=== PATIENT | female | born 2000 | race Hispanic/Latino ===

== ENCOUNTER 2025-02-19 09:42 | Emergency (ER) | payer SELFPAY ==
--- OUTSIDE RECORDS SUMMARY | 2025-02-19 09:46 | XMS REPORT | Continuity of Care Document ---
Author Name Unknown Address [address] [facility] [address] [place] [address] [facility] Address [address] [facility] [address] [place] [address] Care Team Providers Care Rivet Passer Name Role Phone Dakota Lewis Primary Care Physician MARCIAL LOZANO Attending Clinician Unavailab homa VAZQUEZ Attending Clinician Unavailable G_Papbernardo Attending Clinician Unavailable SONNY LEIJA Attending Clinician Unavailabl mirian Navarro Attending Clinician Unavailable JUDITH CANALES Attending Clinician Unavaila RAJWINDER Beal Attending Clinician Unavailable BRUNILDA HUGGINS Attending Clinician Unavailable SHAHRIAR EVANS Attending Clinician Unav YAN mas BA Attending Clinician Unavailable TAYLOR Admitting Clinician Unavailable G_Pappamason Admitting Clinician Unavailable SONNY LEIJA Admitting Clinician Unavailabl e Melanie Admitting Clinician Unavailable Payers Payer Name Policy Type Policy Number Effective Date Expirati on Date Source [facility] (MEDICAID REPLACEMENT - HMO) [id number] 2019 00:00:00 [place] [facility] [id number] Problems Condition Name Condition Details Condition Category Status Onset Date Resolution Date Last Treatment Date Treating Clinician Comments Source Small for gestationa l age fetus Small for Gestationa l Age Fetus Problem Active [facility] History of ectopic History of Ectopic Problem Active [facility] Carrier of alpha thalassemi a Carrier of Alpha Thalassemi a Problem Active [facility] Social History Smoking Status Start Date Stop Date Source Never Smoker [facility] Medications Ordered Medication Name Filled Medication Name Start Date Stop Date Current Medication? Ordering Clinician Indication Dosage Frequency Signature (SIG) Comments Components Source Ferate 240 mg (27 mg iron) tablet TAKE 1 TABLET EVERY DAY BY ORAL ROUTE. Ferate 240 mg (27 mg iron) tablet TAKE 1 TABLET EVERY DAY BY ORAL ROUTE. No Ferate 240 mg (27 mg iron) tablet TAKE 1 TABLET EVERY DAY BY ORAL ROUTE. [facility] Vitafol-One 29 mg iron-1 mg-200 mg capsule TAKE 1 CAPSULE EVERY DAY BY ORAL ROUTE AT BEDTIME. Vitafol-One 29 mg iron-1 mg-200 mg capsule TAKE 1 CAPSULE EVERY DAY BY ORAL ROUTE AT BEDTIME. No Vitafol-On e 29 mg iron-1 mg-200 mg capsule TAKE 1 CAPSULE EVERY DAY BY ORAL ROUTE AT BEDTIME. [facility] amoxicillin 500 mg capsule TAKE ONE (1) CAPSULE(S) BY MOUTH TWICE A DAY FOR INFECTION. amoxicillin 500 mg capsule TAKE ONE (1) CAPSULE(S) BY MOUTH TWICE A DAY FOR INFECTION. No amoxicilli n 500 mg capsule TAKE ONE (1) CAPSULE(S) BY MOUTH TWICE A DAY FOR INFECTION. [facility] 11/28 (28) 1 mg-20 mcg (21)/75 mg (7) tablet Take 1 tablet every day by oral route. 11/28 (28) 1 mg-20 mcg (21)/75 mg (7) tablet Take 1 tablet every day by oral route. No 1 Q1D FE 11/28 (28) 1 mg-20 mcg (21)/75 mg (7) tablet Take 1 tablet every day by oral route. [facility] amoxicillin 500 mg capsule TAKE ONE (1) CAPSULE(S) BY MOUTH TWICE A DAY FOR INFECTION. amoxicillin 500 mg capsule TAKE ONE (1) CAPSULE(S) BY MOUTH TWICE A DAY FOR INFECTION. No amoxicilli n 500 mg capsule TAKE ONE (1) CAPSULE(S) BY MOUTH TWICE A DAY FOR INFECTION. [facility] amoxicillin 875 mg-potassiu m clavulanate 125 mg tablet TAKE ONE (1) TABLET(S) BY MOUTH TWICE A DAY FOR PHARYNGITIS . amoxicillin 875 mg-potassiu m clavulanate 125 mg tablet TAKE ONE (1) TABLET(S) BY MOUTH TWICE A DAY FOR PHARYNGITIS . No amoxicilli n 875 mg-potassi um clavulanat e 125 mg tablet TAKE ONE (1) TABLET(S) BY MOUTH TWICE A DAY FOR PHARYNGITI S. [facility] Hitesh Fe 1/20 (28) 1 mg-20 mcg (21)/75 mg (7) tablet TAKE 1 TABLET EVERY DAY BY ORAL ROUTE. Hitesh Fe 1/20 (28) 1 mg-20 mcg (21)/75 mg (7) tablet TAKE 1 TABLET EVERY DAY BY ORAL ROUTE. No Hitesh Fe 1/20 (28) 1 mg-20 mcg (21)/75 mg (7) tablet TAKE 1 TABLET EVERY DAY BY ORAL ROUTE. [facility] loratadine 10 mg tablet TAKE ONE (1) TABLET(S) BY MOUTH EVERY MORNING FOR ALLERGY SYMPTOMS. loratadine 10 mg tablet TAKE ONE (1) TABLET(S) BY MOUTH EVERY MORNING FOR ALLERGY SYMPTOMS. No loratadine 10 mg tablet TAKE ONE (1) TABLET(S) BY MOUTH EVERY MORNING FOR ALLERGY SYMPTOMS. [facility] Nexplanon 68 mg subdermal implant Inject 1 implant by subcutaneou s route. Nexplanon 68 mg subdermal implant Inject 1 implant by subcutaneou s route. No 1implan t(s) Nexplanon 68 mg subdermal implant Inject 1 implant by subcutaneo us route. [facility] Vital Signs Vital Name Observation Time Observation Value Comments S ource BP Diastolic 2023-04-03 00:00:00 83 mm[Hg] [facility] Height 2023-04-03 00:00:00 64 [in_i] [facility] BMI (Body Mass Index) 2023-04-03 00:00:00 30.1 kg/m2 [facility] BP Systolic 2023-04-03 00:00:00 123 mm[Hg] [facility] Body Weight 2023-04-03 00:00:00 175.2 [lb_av] [facility] BP Diastolic 2023-01-13 00:00:00 84 mm[Hg] [facility] Height 2023-01-13 00:00:00 64 [in_i] [facility] BMI (Body Mass Index) 2023-01-13 00:00:00 31.9 kg/m2 [facility] BP Systolic 2023-01-13 00:00:00 128 mm[Hg] [facility] Body Weight 2023-01-13 00:00:00 185.8 [lb_av] [facility] BP Diastolic 2022-02-18 00:00:00 87 mm[Hg] [facility] Height 2022-02-18 00:00:00 64 [in_i] [facility] BMI (Body Mass Index) 2022-02-18 00:00:00 31 kg/m2 [facility] BP Systolic 2022-02-18 00:00:00 126 mm[Hg] [facility] Body Weight 2022-02-18 00:00:00 180.4 [lb_av] [facility] BP Diastolic 2022-02-13 00:00:00 89 mm[Hg] [facility] Height 2022-02-13 00:00:00 64 [in_i] [facility] BMI (Body Mass Index) 2022-02-13 00:00:00 30.3 kg/m2 [facility] BP Systolic 2022-02-13 00:00:00 134 mm[Hg] [facility] Body Weight 2022-02-13 00:00:00 176.7 [lb_av] [facility] BP Diastolic 2022-02-06 00:00:00 85 mm[Hg] [facility] Height 2022-02-06 00:00:00 64 [in_i] [facility] BMI (Body Mass Index) 2022-02-06 00:00:00 30.7 kg/m2 [facility] BP Systolic 2022-02-06 00:00:00 120 mm[Hg] [facility] Body Weight 2022-02-06 00:00:00 179 [lb_av] [facility] BP Diastolic 2022-01-29 00:00:00 91 mm[Hg] [facility] Height 2022-01-29 00:00:00 64 [in_i] [facility] BP Systolic 2022-01-29 00:00:00 123 mm[Hg] [facility] Body Weight 2022-01-29 00:00:00 175 [lb_av] [facility] BP Diastolic 2022-01-09 00:00:00 76 mm[Hg] [facility] Height 2022-01-09 00:00:00 64 [in_i] [facility] BMI (Body Mass Index) 2022-01-09 00:00:00 29.9 kg/m2 [facility] BP Systolic 2022-01-09 00:00:00 122 mm[Hg] [facility] Body Weight 2022-01-09 00:00:00 174.4 [lb_av] [facility] BP Diastolic 2021-11-21 00:00:00 73 mm[Hg] [facility] Height 2021-11-21 00:00:00 64 [in_i] [facility] BMI (Body Mass Index) 2021-11-21 00:00:00 29.7 kg/m2 [facility] BP Systolic 2021-11-21 00:00:00 123 mm[Hg] [facility] Body Weight 2021-11-21 00:00:00 173.1 [lb_av] [facility] BP Diastolic 2021-10-18 00:00:00 75 mm[Hg] [facility] Height 2021-10-18 00:00:00 64 [in_i] [facility] BMI (Body Mass Index) 2021-10-18 00:00:00 30 kg/m2 [facility] BP Systolic 2021-10-18 00:00:00 112 mm[Hg] [facility] Body Weight 2021-10-18 00:00:00 175 [lb_av] [facility] BP Diastolic 2021-09-19 00:00:00 80 mm[Hg] [facility] Height 2021-09-19 00:00:00 64 [in_i] [facility] BMI (Body Mass Index) 2021-09-19 00:00:00 29.5 kg/m2 [facility] BP Systolic 2021-09-19 00:00:00 123 mm[Hg] [facility] Body Weight 2021-09-19 00:00:00 171.8 [lb_av] [facility] BP Diastolic 2021-08-22 00:00:00 84 mm[Hg] [facility] Height 2021-08-22 00:00:00 64 [in_i] [facility] BMI (Body Mass Index) 2021-08-22 00:00:00 29.6 kg/m2 [facility] BP Systolic 2021-08-22 00:00:00 124 mm[Hg] [facility] Body Weight 2021-08-22 00:00:00 172.6 [lb_av] [facility] BMI (Body Mass Index) 2021-08-01 00:00:00 29.9 kg/m2 [facility] BP Systolic 2021-08-01 00:00:00 119 mm[Hg] [facility] Body Weight 2021-08-01 00:00:00 174.4 [lb_av] [facility] BP Diastolic 2021-08-01 00:00:00 79 mm[Hg] [facility] Height 2021-08-01 00:00:00 64 [in_i] [facility] Height 2020-10-29 00:00:00 64 [in_i] [facility] BMI (Body Mass Index) 2020-10-29 00:00:00 29.9 kg/m2 [facility] Body Weight 2020-10-29 00:00:00 2784 [oz_av] [facility] BP Diastolic 2020-04-17 00:00:00 74 mm[Hg] [facility] Height 2020-04-17 00:00:00 64 [in_i] [facility] BP Systolic 2020-04-17 00:00:00 121 mm[Hg] [facility] BP Diastolic 2020-03-21 00:00:00 85 mm[Hg] [facility] Height 2020-03-21 00:00:00 64 [in_i] [facility] BMI (Body Mass Index) 2020-03-21 00:00:00 29.9 kg/m2 [facility] BP Systolic 2020-03-21 00:00:00 122 mm[Hg] [facility] Body Weight 2020-03-21 00:00:00 174 [lb_av] [facility] BP Diastolic 2020-03-09 00:00:00 87 mm[Hg] [facility] Height 2020-03-09 00:00:00 64 [in_i] [facility] BMI (Body Mass Index) 2020-03-09 00:00:00 29.7 kg/m2 [facility] BP Systolic 2020-03-09 00:00:00 117 mm[Hg] [facility] Body Weight 2020-03-09 00:00:00 173 [lb_av] [facility] BP Diastolic 2020-01-19 00:00:00 74 mm[Hg] [facility] Height 2020-01-19 00:00:00 64 [in_i] [facility] BMI (Body Mass Index) 2020-01-19 00:00:00 29 kg/m2 [facility] BP Systolic 2020-01-19 00:00:00 110 mm[Hg] [facility] Body Weight 2020-01-19 00:00:00 169.1 [lb_av] [facility] BP Diastolic 2020-01-05 00:00:00 84 mm[Hg] [facility] Height 2020-01-05 00:00:00 64 [in_i] [facility] BMI (Body Mass Index) 2020-01-05 00:00:00 28.8 kg/m2 [facility] BP Systolic 2020-01-05 00:00:00 120 mm[Hg] [facility] Body Weight 2020-01-05 00:00:00 168 [lb_av] [facility] BP Diastolic 2019-12-08 00:00:00 62 mm[Hg] [facility] Height 2019-12-08 00:00:00 64 [in_i] [facility] BMI (Body Mass Index) 2019-12-08 00:00:00 28.7 kg/m2 [facility] BP Systolic 2019-12-08 00:00:00 108 mm[Hg] [facility] Body Weight 2019-12-08 00:00:00 167 [lb_av] [facility] BP Diastolic 2024-09-13 14:07:00 79 mm[Hg] [facility] Weight Measured 2024-09-13 14:07:00 180.80 pounds Bandar Reynolds Height Measured 2024-09-13 14:07:00 63.07 inches Bandar Reynolds Body Temperature 2024-09-13 14:07:00 97.80 degrees Bandar Reynolds Heart Rate 2024-09-13 14:07:00 76.00 /min Raven Reynolds Respiratory Rate 2024-09-13 14:07:00 18.00 /min Bandar Reynolds BP Systolic 2024-09-13 14:07:00 122 mm[Hg] Tony Reynolds Procedures Procedure Date / Time Performed Performing Clinician Source US(FBP)W/0 NON STRESS TEST 2022-02-18 00:00:00 [facility] non-stress test 2022-02-13 00:00:00 [facility], [facility], limited 2022-02-06 00:00:00 [facility] US, obstetric, limited 2022-01-09 00:00:00 [facility] ULTRASOUND REPEAT 2021-12-12 00:00:00 [facility] ULTRASOUND, UTERUS REAL TIME WITH IMAGE DOC, AND MATERNAL EVAL PLUS DETAILED ANATOMIC EXAMINATION, TRANSABDOMINAL APPROACH; SINGLE OR FIRST GESTATION 2021-09-19 00:00:00 [facility] US, obstetric, limited 2021-09-19 00:00:00 [facility] US, obstetric, limited 2021-08-22 00:00:00 [facility] US, obstetric, limited 2021-08-01 00:00:00 [facility] US, obstetric, limited 2020-03-09 00:00:00 [facility] ULTRASOUND REPEAT 2020-01-05 00:00:00 [facility] ULTRASOUND, UTERUS REAL TIME WITH IMAGE DOC, AND MATERNAL EVAL PLUS DETAILED ANATOMIC EXAMINATION, TRANSABDOMINAL APPROACH; SINGLE OR FIRST GESTATION 2019-12-08 00:00:00 [facility] Removal of Fallopian Tube 2018-04-29 00:00:00 [facility] Plan of Care Planned Activity Planned Date Details Comments Source Diagnostic Test Pending 2023-04-03 00:00:00 test, urine [code = test, urine] [facility] Instructions [facility] Encounters Start Date/Time End Date/Time Encounter Type Admission Type Attending [facility] Facility Care Department Encounter ID Source 2024-09-13 13:59:29 2024-09-13 13:59:29 Outpatient S[facility] [id number] Bandar Reynolds 2024-09-13 00:00:00 2024-09-13 00:00:00 Outpatient Visit [facility] [id number] Bandar Reynolds 2023-04-03 00:00:00 2023-04-03 00:00:00 LORE Byrne-BC: [address] [facility], [address], [place] [address] , Ph. [phone] [facility] [id number] [facility] 2023-03-26 10:09:00 2023-03-26 11:54:00 Emergency ER MARCIAL LOZANO [facility] [id number] [facility] 2023-01-13 00:00:00 2023-01-13 00:00:00 LORE Byrne-: [address], [address], [place] [address] , Ph. [phone] [facility] OBETHEL [id number] [facility] 2022-06-11 14:30:00 2022-06-11 16:26:00 Emergency ER MARCIAL LOZANO [facility] [id number] [facility] 2022-05-21 02:40:00 2022-05-21 02:40:00 Outpatient LISTER_MELI [facility] [id number] [facility] 2022-04-04 00:00:00 2022-04-04 00:00:00 Outpatient G_Pappas [facility] [id number] [facility] 2022-04-04 00:00:00 2022-04-04 00:00:00 Outpatient G_Pappas [facility] [id number] [facility] 2022-04-04 00:00:00 2022-04-04 00:00:00 Outpatient G_Pappas [facility] [id number] [facility] 2022-04-04 00:00:00 2022-04-04 00:00:00 Outpatient G_Pappas [facility] [id number] [facility] 2022-02-26 01:51:00 2022-02-26 01:51:00 Outpatient G_Pappas [facility] [id number] [facility] 2022-02-20 13:55:00 2022-02-21 16:20:00 Inpatient ER SONNY LEIJA [facility] [id number] [facility] 2022-02-18 00:00:00 2022-02-18 00:00:00 Sonny Leija MD: [address], [place] [address] , Ph. [phone] G_Pappas [facility] [id number] [facility] 2022-02-13 00:00:00 2022-02-13 00:00:00 Sonny Leija MD: [address], [place] [address] , Ph. [phone] G_Pappas [facility] [id number] [facility] 2022-02-06 00:00:00 2022-02-06 00:00:00 Sonny Leija MD: [address], [place] [address] , Ph. [phone] G_Pappas [facility] 0331 [facility] 2022-01-29 00:00:00 2022-01-29 00:00:00 [facility] [address] [facility] [address] [place] [address] , Ph. [phone] G_Pappas [facility] [id number] [facility] 2022-01-09 00:00:00 2022-01-09 00:00:00 CHERYLE ByrneBC: [address], [place] [address] , Ph. [phone] G_Pappas [facility] [id number] [facility] 2021-12-12 10:45:00 2021-12-12 10:45:00 Outpatient SONNY DAVILA [facility] [id number] [facility] 2021-12-12 00:00:00 2021-12-12 00:00:00 Sonny Leija MD: [address] [facility] [address], [place] [address] , Ph. [phone] G_Pappas [facility] [id number] [facility] 2021-11-21 00:00:00 2021-11-21 00:00:00 YUE Byrne: [address] [address] , Ph. [phone] G_Pappas [facility] [id number] [facility] 2021-10-18 10:48:00 2021-10-18 10:48:00 Outpatient SONNY DAVILA [facility] [id number] [facility] 2021-10-18 00:00:00 2021-10-18 00:00:00 Judith Canales MD: [address] [address] , Ph. [phone] G_Pappas [facility] [id number] [facility] 2021-09-19 00:00:00 2021-09-19 00:00:00 Sonny Leija MD: [address] [address] , Ph. [phone] G_Pappas [facility] [id number] 1111 [facility] 2021-08-22 00:00:00 2021-08-22 00:00:00 Sonny Leija MD: [address] [address] , Ph. [phone] G_Pappas [facility] [id number] [facility] 2021-08-01 16:32:00 2021-08-01 16:32:00 Outpatient SONNY DAVILA [facility] [id number] [facility] 2021-08-01 00:00:00 2021-08-01 00:00:00 Sonny Leija MD: [address] [place] [address] , Ph. [phone] G_Pappas [facility] 0923 [facility] 2020-11-13 10:39:00 2020-11-13 10:39:00 [facility]patient [id number] 2020-10-29 00:00:00 2020-10-29 00:00:00 Erin Navarro, MUSIC AUTOGRAPHER: [address] [facility] [address], [place] [address] , Ph. [facility] 1221 [facility] 2020-09-26 02:21:00 2020-09-26 02:21:00 Outpatient G_Pappas [facility] [id number] [facility] 2020-04-17 00:00:00 2020-04-17 00:00:00 Sonny Leija MD: [address] [facility] [address], [place] [address] , Ph. [phone] G_Pappas [facility] 0609 [facility] 2020-04-10 10:56:00 2020-04-10 10:56:00 Outpatient G_Pappas [facility] [id number] [facility] 2020-03-25 07:40:00 2020-03-27 07:35:00 Inpatient ER SONNY LEIJA [facility] [id number] [facility] 2020-03-27 04:25:00 2020-03-27 04:25:00 Outpatient G_Pappas [facility] [id number] [facility] 2020-03-21 13:37:00 2020-03-21 13:37:00 Outpatient JUDITH ROBBINS [facility] [id number] [facility] 2020-03-21 00:00:00 2020-03-21 00:00:00 Judith Canales MD: [address] [facility] [address] [place] [address] , Ph. [phone] G[facility]Pappas [facility] [id number] [facility] 2020-03-12 12:13:00 2020-03-12 12:13:00 Outpatient G_Pappas [facility] [id number] [facility] 2020-03-09 00:00:00 2020-03-09 00:00:00 Rajwinder Wolf, NP: [address] [facility] [address] [place] [address] , Ph. [phone] G_Pappas MM[facility] - OBGYN [id number] [facility] 2020-02-27 08:52:00 2020-02-27 08:52:00 Outpatient G_Pappas [facility] G [id number] [facility] 2020-02-24 00:00:00 2020-02-24 00:00:00 Rajwinder Wolf, NP: [address] [address] , Ph. [phone] MM[facility] - OBGYN [id number] [facility] 2020-02-13 11:22:00 2020-02-13 11:22:00 Outpatient G_Pappas [facility] G [id number] [facility] 2020-02-12 07:18:00 2020-02-12 07:18:00 Outpatient G_Pappas [facility] [id number] [facility] 2020-02-10 00:00:00 2020-02-10 00:00:00 Judith Canales MD: [address] [facility] [address] [place] [address] , Ph. [phone] MM[facility] - OBGYN [id number] [facility] 2020-02-03 09:47:00 2020-02-03 09:47:00 Outpatient G_Pappas [facility] [id number] [facility] 2020-02-02 10:58:00 2020-02-02 10:58:00 Outpatient G_Pappas [facility] [id number] [facility] 2020-01-24 13:09:00 2020-01-24 13:09:00 Outpatient JUDITH ROBBINS [facility] [id number] [facility] 2020-01-22 08:21:00 2020-01-22 08:21:00 Outpatient G_Pappas [facility] [id number] [facility] 2020-01-19 00:00:00 2020-01-19 00:00:00 Judith Canales MD: [address] [address] , Ph. [phone] [facility]appas [facility] [id number] [facility] 2020-01-12 12:32:00 2020-01-12 12:32:00 Outpatient RAJWINDER FLEMING [facility] [id number] [facility] 2020-01-09 05:44:00 2020-01-09 05:44:00 Outpatient G_Pappas [facility] [id number] [facility] 2020-01-08 09:38:00 2020-01-08 09:38:00 Outpatient G_Pappas [facility] [id number] [facility] 2020-01-05 00:00:00 2020-01-05 00:00:00 BIGG Pickering: [address] [address] , Ph. [phone] G_Pappas MM[facility] - OBGYN [id number] [facility] 2019-12-24 11:07:00 2019-12-24 11:07:00 Outpatient G_Pappas [facility] [id number] [facility] 2019-12-09 11:02:00 2019-12-09 11:02:00 Outpatient [facility] [id number] [facility] 2019-12-08 15:10:00 2019-12-08 15:10:00 Outpatient JUDITH ROBBINS [facility] [id number] [facility] 2019-12-08 00:00:00 2019-12-08 00:00:00 Judith Canales MD: [address] [address] , Ph. [phone] [facility] [id number] [facility] 2019-11-14 04:23:00 2019-11-14 04:23:00 Outpatient G_Pappas [facility] [id number] [facility] 2018-04-28 16:19:00 2018-04-28 16:19:00 Outpatient ER BALAJISONNY CONTRERAS [facility] [id number] [facility] 2017-04-18 00:53:00 2017-04-19 09:50:00 Inpatient ER BALAJISONNY CONTRERAS [facility] [id number] [facility] 2017-03-25 14:17:00 2017-03-25 14:17:00 Outpatient BRUNILDA HITCHCOCK [facility] [id number] [facility] 2017-01-29 08:42:00 2017-01-29 08:42:00 Outpatient JUDITH ROBBINS [facility] [id number] [facility] 2016-09-29 15:38:00 2016-09-29 15:38:00 Outpatient BRUNILDA HITCHCOCK [facility] [id number] [facility] 2006-03-13 08:37:00 2006-03-13 08:37:00 Outpatient SHAHRIAR COATES [facility] [id number] [facility] 2004-12-28 21:11:00 2004-12-29 02:08:00 Emergency ER YAN FRIAS [facility] [id number] [facility] Results Test Description Test Time Test Comments Results Result Co mments Source [facility] [id number] 13:49:50* Test Item Value Reference Range Interpretation Comme nts Test (test code = Test) negative [facility] GroupUrinalysis macro (dipstick) panel - [id number] 15:51:31* Test Item Value Reference Range Interpretation Comme nts Leukocytes (test code = Leukocytes) Small Nitrite (test code = Nitrite) negative Urobilinogen (test code = Urobilinogen) .2 Protein (test code = Protein) Negative pH (test code = pH) 6.5 Blood (test code = Blood) Negative Specific [place] (test code = Specific [place]) 1.030 Ketone (test code = Ketone) Trace Bilirubin (test code = Bilirubin) Negative Glucose (test code = Glucose) Negative Appearance (test code = Appearance) Clear Color (test code = Color) Yellow [facility] HospitalUrinalysis macro (dipstick) panel - [id number] 09:46:31* Test Item Value Reference Range Interpretation Comme nts Leukocytes (test code = Leukocytes) Small Nitrite (test code = Nitrite) negative Urobilinogen (test code = Urobilinogen) .2 Protein (test code = Protein) Negative pH (test code = pH) 7.0 Blood (test code = Blood) Negative Specific [place] (test code = Specific [place]) 1.025 Ketone (test code = Ketone) Negative Bilirubin (test code = Bilirubin) Negative Glucose (test code = Glucose) Negative Appearance (test code = Appearance) Clear Color (test code = Color) Yellow [facility] Groupculture, vaginal/rectal, streptococcus group [id number] 00:00:00* Test Item Value Reference Range Interpretation Comme nts group B strep (test code = g roup B strep) negative [facility] GroupUrinalysis macro (dipstick) panel - [id number] 10:29:24* Test Item Value Reference Range Interpretation Comme nts Leukocytes (test code = Leukocytes) Small Nitrite (test code = Nitrite) negative Urobilinogen (test code = Urobilinogen) .2 Protein (test code = Protein) Negative pH (test code = pH) 7.0 Blood (test code = Blood) Negative Specific [place] (test code = Specific [place]) 1.020 Ketone (test code = Ketone) Negative Bilirubin (test code = Bilirubin) Negative Glucose (test code = Glucose) Negative Appearance (test code = Appearance) Clear Color (test code = Color) Yellow [facility] HospitalUrinalysis macro (dipstick) panel - [id number] 09:51:42* Test Item Value Reference Range Interpretation Comme nts Leukocytes (test code = Leukocytes) Small Nitrite (test code = Nitrite) negative Urobilinogen (test code = Urobilinogen) .2 Protein (test code = Protein) Negative pH (test code = pH) 7.0 Blood (test code = Blood) Hemolyzed: Trace Specific [place] (test code = Specific [place]) 1.025 Ketone (test code = Ketone) Negative Bilirubin (test code = Bilirubin) Negative Glucose (test code = Glucose) Negative Appearance (test code = Appearance) Slightly Cloudy Color (test code = Color) Yellow [facility] HospitalGlucose [Mass/volume] in Serum or Plasma --1 hour post dose [id number] 11:42:00* Test Item Value Reference Range Interpretation Comme nts Results (test code = Results) 138 [facility] HospitalUrinalysis macro (dipstick) panel - [id number] 09:55:12* Test Item Value Reference Range Interpretation Comme nts Leukocytes (test code = Leukocytes) Small Nitrite (test code = Nitrite) negative Urobilinogen (test code = Urobilinogen) .2 Protein (test code = Protein) Negative pH (test code = pH) 7.0 Blood (test code = Blood) Negative Specific [place] (test code = Specific [place]) 1.020 Ketone (test code = Ketone) Negative Bilirubin (test code = Bilirubin) Negative Glucose (test code = Glucose) Negative Appearance (test code = Appearance) Clear Color (test code = Color) Yellow [facility] HospitalCBC W Auto Differential panel - [id number] 09:49:00 * Test Item Value Reference Range Interpretation Comme nts white blood count (test code = white blood count) 9.7 K/uL 4.0-11.5 red blood count (test code = red blood count) 4.02 M/uL 3.80-5.20 hemoglobin (test code = hemoglobin) 10.9 g/dL 10.5-15.7 hematocrit (test code = hematocrit) 35.5 % 34.0-50.0 MCV [Entitic volume] (test c ode = 75769-3) 88.3 fL 86.0-100.0 mean corpuscular hemoglobin (test code = mean corpuscular hemoglobin) 27.1 pg 26.2-33.4 mean corpuscular HGB conc (t est code = mean corpuscular HGB conc) 30.7 g/dL 30.0-34.0 red cell distribution width (test code = red cell distribution width) 13.8 % 12.0-15.5 platelet count (test code = platelet count) 223 K/uL 165-450 mean platelet volume (test c ode = mean platelet volume) 12.2 fL 9.4-12.6 Segmented neutrophils/100 leukocytes in Blood (test code = 59403-0) 74.5 % 44.4-80.1 Immature granulocytes [#/vol ume] in Blood (test code = 78221-3) 0.09 K/uL 0.00-0.03 H lymphocyte% (test code = lymphocyte%) 16.8 % 10.0-50.0 mono % (test code = mono %) 6.8 % 3.6-12.0 eos % (test code = eos %) 0.7 % 0.0-5.4 Basophils/100 leukocytes in Specimen (test code = 40832-0) 0.3 % 0.1-1.2 Band form neutrophils [#/vol ume] in Blood (test code = 02267-6) 7.20 K/uL 1.56-6.13 H Lymphocytes [#/volume] in Sp ecimen by Automated count (test code = 01649-7) 1.63 K/uL 1.18-3.74 mono # (test code = mono #) 0.66 K/uL 0.24-0.86 eos # (test code = eos #) 0.07 K/uL 0.04-0.36 basophil # (test code = baso tristan #) 0.03 K/uL 0.01-0.08 NRBC% (test code = NRBC%) 0 /100 WBC 0-0.2 NRBC# (test code = NRBC#) 0 K/uL [facility] HospitalBlood group antibody screen [Presence] in Serum or Plasma 2021-12-12 09:49:00* Test Item Value Reference Range Interpretation Comme nts Blood group antibody screen [Presence] in Serum or Plasma (test code = 890-4) negative [facility] HospitalDifferential panel, method unspecified - [id number] 00:00:00NeutrophilsBandLymphocyteAtypical LymphMonocyteEosinophilBasophilMetamyelocyteMyelocytePromyelocyteBlastsNucleated Red Blood CellAbs Neutrophil Count (Man)Abs Lymph Count (Man)Abs Monocyte Count (Man)Abs Eosinophil Count (Man)Abs Basophil Count (Man)Platelet EstimatePlatelet MorphologyPoikilocytosisAnisocytosisMacrocytosisTarget CellsToxic GranulationMataMayo Memorial Hospital GroupHIV 1+2 Ab [Presence] in Serum 2021-12-12 00:00:00HIV P24 AgHIV-1/2 AbMaP[facility]irie Ridge Health GroupReagin Ab [Presence] in Serum by [id number] 00:00:00* Test Item Value Reference Range Interpretation Comme nts Reagin Ab [Presence] in Seru m by RPR (test code = 01184-6) nonreactive nonreactive [facility] HospitalUrinalysis macro (dipstick) panel - [id number] 09:49:38* Test Item Value Reference Range Interpretation Comme nts Leukocytes (test code = Leukocytes) Moderate Nitrite (test code = Nitrite) negative Urobilinogen (test code = Urobilinogen) .2 Protein (test code = Protein) Trace pH (test code = pH) 7.0 Blood (test code = Blood) Negative Specific [place] (test code = Specific [place]) 1.020 Ketone (test code = Ketone) Negative Bilirubin (test code = Bilirubin) Negative Glucose (test code = Glucose) Negative Appearance (test code = Appearance) Clear Color (test code = Color) Yellow [facility] HospitalUrinalysis macro (dipstick) panel - [id number] 11:50:25* Test Item Value Reference Range Interpretation Comme nts Leukocytes (test code = Leukocytes) Small Nitrite (test code = Nitrite) negative Urobilinogen (test code = Urobilinogen) .2 Protein (test code = Protein) Negative pH (test code = pH) 7.0 Blood (test code = Blood) Hemolyzed: Trace Specific [place] (test code = Specific [place]) 1.025 Ketone (test code = Ketone) Negative Bilirubin (test code = Bilirubin) Negative Glucose (test code = Glucose) Negative Appearance (test code = Appearance) Clear Color (test code = Color) Yellow [facility] HospitalUrinalysis macro (dipstick) panel - [id number] 13:56:26* Test Item Value Reference Range Interpretation Comme nts Leukocytes (test code = Leukocytes) Trace Nitrite (test code = Nitrite) negative Urobilinogen (test code = Urobilinogen) .2 Protein (test code = Protein) Negative pH (test code = pH) 6.5 Blood (test code = Blood) Negative Specific [place] (test code = Specific [place]) 1.030 Ketone (test code = Ketone) Small Bilirubin (test code = Bilirubin) Negative Glucose (test code = Glucose) Negative Appearance (test code = Appearance) Slightly Cloudy Color (test code = Color) Yellow [facility] HospitalUrinalysis macro (dipstick) panel - [id number] 09:56:53* Test Item Value Reference Range Interpretation Comme nts Leukocytes (test code = Leukocytes) Small Nitrite (test code = Nitrite) negative Urobilinogen (test code = Urobilinogen) .2 Protein (test code = Protein) Negative pH (test code = pH) 7.0 Blood (test code = Blood) Negative Specific [place] (test code = Specific [place]) 1.025 Ketone (test code = Ketone) Negative Bilirubin (test code = Bilirubin) Negative Glucose (test code = Glucose) Negative Appearance (test code = Appearance) Slightly Cloudy Color (test code = Color) Yellow [facility] GroupChromosome 13+18+21+X+Y aneuploidy in Blood by Molecular genetics method [id number] 00:00:00* Test Item Value Reference Range Interpretation Comme nts report summary (test code = report summary) see notes report note (test code = report note) see notes trisomy 13 age-based risk text (test code = trisomy 13 age-based risk text) 1/7,826 (0.01%) trisomy 13 risk score text (test code = trisomy 13 risk score text) <1/10,000 (<0.01%) trisomy 13 result text (test code = trisomy 13 result text) low risk trisomy 18 age-based risk text (test code = trisomy 18 age-based risk text) 1/2,484 (0.04%) trisomy 18 risk score text (test code = trisomy 18 risk score text) <1/10,000 (<0.01%) trisomy 18 result text (test code = trisomy 18 result text) low risk trisomy 21 age-based risk text (test code = trisomy 21 age-based risk text) 1/1,068 (0.09%) trisomy 21 risk score text (test code = trisomy 21 risk score text) <1/10,000 (<0.01%) trisomy 21 result text (test code = trisomy 21 result text) low risk monosomy X age-based risk text (test code = monosomy X age-based risk text) 1/255 (0.39%) monosomy X risk score text (test code = monosomy X risk score text) <1/10,000 (<0.01%) monosomy X result text (test code = monosomy X result text) low risk triploidy result text (test code = triploidy result text) low risk gender of fetus (test code = gender of fetus) male fraction (test code = fraction) 6.2% footnotes (test code = footnotes) see notes [facility] GroupGenetic screen in Unspecified specimen by Molecular genetics method [id number] 00:00:00* Test Item Value Reference Range Interpretation Comme nts report summary (test code = report summary) positive A alpha-thalassemia (test code = alpha-thalassemia) positive A beta-hemoglobinopathies (nancy t code = beta-hemoglobinopathies) negative micheline disease (test code = micheline disease) negative cystic fibrosis (test code = cystic fibrosis) negative duchenne/sanchez muscular dys trophy (test code = duchenne/sanchez muscular dystrophy) negative familial dysautonomia (test code = familial dysautonomia) negative fragile X syndrome (test cod e = fragile X syndrome) negative galactosemia (test code = galactosemia) negative gaucher disease (test code = gaucher disease) negative medium chain acyl-coa dehydr ogenase deficiency (test code = medium chain acyl-coa dehydrogenase deficiency) negative polycystic kidney disease, autosomal recessive (test code = polycystic kidney disease, autosomal recessive) negative mfbor-wngjj-hodgh syndrome ( test code = mtxmk-dtqkq-vzxxo syndrome) negative spinal muscular atrophy (nancy t code = spinal muscular atrophy) negative tara-sachs disease (test code = tara-sachs disease) negative panel notes (test code = joy el notes) see notes report note (test code = rep ort note) see notes footnotes (test code = footnotes) see notes [facility] Grouppap, LB + reflex to HR HPV if [id number] 00:00:00* Test Item Value Reference Range Interpretation Comme nts TP reflex HPV ASCUS (test co de = TP reflex HPV ASCUS) normal [facility] GroupABO & Rh group [Type] in [id number] 03:38:00* Test Item Value Reference Range Interpretation Comme nts Rh [Type] in Blood (test cod e = 25708-4) 4+ ABO and Rh group panel - Blo od (test code = 10995-1) O positive [facility] GroupBlood group antibody screen [Presence] in Serum or Plasma 2021-08-01 03:38:00* Test Item Value Reference Range Interpretation Comme nts Blood group antibody screen [Presence] in Serum or Plasma (test code = 890-4) negative [facility] GroupHIV 1+2 Ab [Presence] in [id number] 03:38:00HIV P24 AgHIV-1/2 AbMatagoa [facility] GroupReagin Ab [Presence] in Serum by RPR 2021-08-01 03:38:00* Test Item Value Reference Range Interpretation Comme nts Reagin Ab [Presence] in Seru m by RPR (test code = 52755-0) nonreactive nonreactive [facility] GroupHepatitis B virus surface Ag [Presence] in Serum 2021-08-01 03:30:00* Test Item Value Reference Range Interpretation Comme nts .hepatitis B surface antigen (test code = .hepatitis B surface antigen) negative negative [facility] W Auto Differential panel - [id number] 03:24:00 * Test Item Value Reference Range Interpretation Comme nts white blood count (test code = white blood count) 10.4 K/uL 4.0-11.5 red blood count (test code = red blood count) 4.65 M/uL 3.80-5.20 hemoglobin (test code = hemoglobin) 12.6 g/dL 10.5-15.7 hematocrit (test code = hematocrit) 39.7 % 34.0-50.0 MCV [Entitic volume] (test c ode = 87583-5) 85.4 fL 86-100 L mean corpuscular hemoglobin (test code = mean corpuscular hemoglobin) 27.1 pg 26.2-33.4 mean corpuscular HGB conc (t est code = mean corpuscular HGB conc) 31.7 g/dL 30-34 red cell distribution width (test code = red cell distribution width) 14.6 % 12.0-15.5 platelet count (test code = platelet count) 254 K/uL 165-450 mean platelet volume (test c ode = mean platelet volume) 11.1 fL 9.4-12.6 Segmented neutrophils/100 leukocytes in Blood (test code = 99627-4) 74.1 % 44.4-80.1 Immature granulocytes [#/vol ume] in Blood (test code = 53623-3) 0.0 K/uL 0.0-0.03 lymphocyte% (test code = lymphocyte%) 17.7 % 10.0-50.0 mono % (test code = mono %) 6.8 % 3.6-12.0 eos % (test code = eos %) 0.8 % 0.0-5.4 Basophils/100 leukocytes in Unspecified specimen (test code = 27339-7) 0.2 % 0.1-1.2 Band form neutrophils [#/vol ume] in Blood (test code = 16222-6) 7.74 K/uL 1.56-6.13 H Lymphocytes [#/volume] in Unspecified specimen by Automated count (test code = 09246-1) 1.9 K/uL 1.18-3.74 mono # (test code = mono #) 0.71 K/uL 0.24-0.86 eos # (test code = eos #) 0.08 K/uL 0.04-0.36 basophil # (test code = baso tristan #) 0.02 K/uL 0.01-0.08 NRBC% (test code = NRBC%) 0 /100 WBC 0-0.2 NRBC# (test code = NRBC#) 0 K/uL [facility] GroupChlamydia trachomatis+Neisseria gonorrhoeae DNA [Presence] in Cervix by URBANO with probe [id number] 03:24:00* Test Item Value Reference Range Interpretation Comme nts Chlamydia sp Ag [Presence] i n Unspecified specimen (test code = 56543-3) CT not detected [id number] (test code = ces1154) NG not detected [facility] GroupBacteria identified in Urine by [id number] 03:24:00* Test Item Value Reference Range Interpretation Comme nts Bacteria identified in Urine by Culture (test code = 630-4) no growth after 2 days [facility] GroupSARS-CoV+SARS-CoV-2 (COVID-19) Ag [Presence] in Respiratory specimen by Rapid [id number] 15:56:00* Test Item Value Reference Range Interpretation Comme nts SARS-CoV - 2 (test code = SA RS-CoV - 2) positive [facility] HospitalUrinalysis macro (dipstick) panel - [id number] 10:40:36* Test Item Value Reference Range Interpretation Comme nts Leukocytes (test code = Leukocytes) Large Nitrite (test code = Nitrite) negative Urobilinogen (test code = Urobilinogen) 1 Protein (test code = Protein) Negative pH (test code = pH) 7.0 Blood (test code = Blood) Large Specific [place] (test code = Specific [place]) 1.025 Ketone (test code = Ketone) Negative Bilirubin (test code = Bilirubin) Negative Glucose (test code = Glucose) Negative Appearance (test code = Appearance) Clear Color (test code = Color) Yellow [facility] GroupSARS coronavirus 2 RNA [Presence] in Respiratory specimen by URBANO with probe [id number] 14:28:00* Test Item Value Reference Range Interpretation Comme nts covid-19 test (test code = c ovid-19 test) negative [facility] W Auto Differential panel - [id number] 06:20:00 * Test Item Value Reference Range Interpretation Comme nts white blood count (test code = white blood count) 16.1 K/uL 4.0-11.5 red blood count (test code = red blood count) 3.65 M/uL 3.80-5.20 L hemoglobin (test code = hemoglobin) 9.0 g/dL 10.5-15.7 L hematocrit (test code = hematocrit) 29.4 % 34.0-50.0 L MCV [Entitic volume] (test c ode = 54472-4) 80.5 fL 86-100 L mean corpuscular hemoglobin (test code = mean corpuscular hemoglobin) 24.7 pg 26.2-33.4 L mean corpuscular HGB conc (t est code = mean corpuscular HGB conc) 30.6 g/dL 30-34 red cell distribution width (test code = red cell distribution width) 15.9 % 12.0-15.5 H platelet count (test code = platelet count) 199 K/uL 165-450 Platelets reticulated/100 platelets in Blood by Automated count (test code = 87570-9) 11.8 % 0-8 H mean platelet volume (test c ode = mean platelet volume) 13.3 fL 9.4-12.6 H Segmented neutrophils/100 leukocytes in Blood (test code = 75998-2) 71.4 % 44.4-80.1 Immature granulocytes [#/vol ume] in Blood (test code = 33705-4) 0.2 K/uL 0.0-0.03 H lymphocyte% (test code = lymphocyte%) 17.3 % 10.0-50.0 mono % (test code = mono %) 9.6 % 3.6-12.0 eos % (test code = eos %) 0.2 % 0.0-5.4 Basophils/100 leukocytes in Unspecified specimen (test code = 99963-1) 0.2 % 0.1-1.2 Band form neutrophils [#/vol ume] in Blood (test code = 48873-8) 11.49 K/uL 1.56-6.13 H Lymphocytes [#/volume] in Unspecified specimen by Automated count (test code = 81243-8) 2.8 K/uL 1.18-3.74 mono # (test code = mono #) 1.54 K/uL 0.24-0.86 H eos # (test code = eos #) 0.04 K/uL 0.04-0.36 basophil # (test code = baso tristan #) 0.03 K/uL 0.01-0.08 NRBC% (test code = NRBC%) 0 /100 WBC 0-0.2 NRBC# (test code = NRBC#) 0 K/uL [facility] W Auto Differential panel - [id number] 05:56:00 * Test Item Value Reference Range Interpretation Comme nts white blood count (test code = white blood count) 11.8 K/uL 4.0-11.5 H red blood count (test code = red blood count) 3.82 M/uL 3.80-5.20 hemoglobin (test code = hemoglobin) 9.5 g/dL 10.5-15.7 L hematocrit (test code = hematocrit) 31.4 % 34.0-50.0 L MCV [Entitic volume] (test c ode = 93965-6) 82.2 fL 86-100 L mean corpuscular hemoglobin (test code = mean corpuscular hemoglobin) 24.9 pg 26.2-33.4 L mean corpuscular HGB conc (t est code = mean corpuscular HGB conc) 30.3 g/dL 30-34 red cell distribution width (test code = red cell distribution width) 16.5 % 12.0-15.5 H platelet count (test code = platelet count) 174 K/uL 165-450 mean platelet volume (test c ode = mean platelet volume) 12.9 fL 9.4-12.6 H Segmented neutrophils/100 leukocytes in Blood (test code = 51133-5) 65.0 % 44.4-80.1 Immature granulocytes [#/vol ume] in Blood (test code = 56703-2) 0.2 K/uL 0.0-0.03 H lymphocyte% (test code = lymphocyte%) 23.9 % 10.0-50.0 mono % (test code = mono %) 8.8 % 3.6-12.0 eos % (test code = eos %) 0.7 % 0.0-5.4 Basophils/100 leukocytes in Unspecified specimen (test code = 31562-6) 0.2 % 0.1-1.2 Band form neutrophils [#/vol ume] in Blood (test code = 39061-4) 7.71 K/uL 1.56-6.13 H Lymphocytes [#/volume] in Unspecified specimen by Automated count (test code = 51364-1) 2.8 K/uL 1.18-3.74 mono # (test code = mono #) 1.04 K/uL 0.24-0.86 H eos # (test code = eos #) 0.08 K/uL 0.04-0.36 basophil # (test code = baso tristan #) 0.02 K/uL 0.01-0.08 NRBC% (test code = NRBC%) 0 /100 WBC 0-0.2 NRBC# (test code = NRBC#) 0 K/uL [facility] GroupBlood type and Indirect antibody screen panel - Blood 2020-03-25 05:56:00* Test Item Value Reference Range Interpretation Comme nts Rh [Type] in Blood (test cod e = 06444-0) 4+ ABO and Rh group panel - Blo od (test code = 70015-4) O positive [facility] GroupReagin Ab [Presence] in Serum by [id number] 05:56:00* Test Item Value Reference Range Interpretation Comme nts Reagin Ab [Presence] in Seru m by RPR (test code = 15154-5) nonreactive nonreactive [facility] GroupHepatitis B virus surface Ag [Presence] in Serum 2020-03-25 05:56:00* Test Item Value Reference Range Interpretation Comme nts .hepatitis B surface antigen (test code = .hepatitis B surface antigen) negative negative [facility] CaopkQnvjz-0-Pgnnwxutshhwv.placental [Presence] in Vaginal [id number] 05:29:00* Test Item Value Reference Range Interpretation Comme nts Npqpv-7-Kawhgprhhsrgo.placen moris [Presence] in Vaginal fluid (test code = 28301-4) positive neg [facility] GroupChlamydia trachomatis+Neisseria gonorrhoeae DNA [Presence] in Unspecified specimen by URBANO with probe [id number] 00:00:00* Test Item Value Reference Range Interpretation Comme nts chlamydia trachomatis by candace l-time PCR (reflex to azithromycin resistance by pyrosequencing) (test code = chlamydia trachomatis by real-time PCR (reflex to azithromycin resistance by pyrosequencing)) negative neisseria gonorrhoeae by candace l-time PCR (reflex to antibiotic resistance by molecular analysis) (test code = neisseria gonorrhoeae by real-time PCR (reflex to antibiotic resistance by molecular analysis)) negative [facility] GroupStreptococcus agalactiae [Presence] in Unspecified specimen by Organism specific [id number] 00:00:00* Test Item Value Reference Range Interpretation Comme nts group B streptococcus (gbs) by real-time PCR (test code = group B streptococcus (gbs) by real-time PCR) positive A group B streptococcus (gbs) antibiotic resistance by PCR (test code = group B streptococcus (gbs) antibiotic resistance by PCR) positive A [facility] GroupUrinalysis macro (dipstick) panel - [id number] 11:05:08* Test Item Value Reference Range Interpretation Comme nts Leukocytes (test code = Leukocytes) Large Nitrite (test code = Nitrite) negative Urobilinogen (test code = Urobilinogen) .2 Protein (test code = Protein) Trace pH (test code = pH) 7.0 Blood (test code = Blood) Negative Specific [place] (test code = Specific [place]) 1.025 Ketone (test code = Ketone) Negative Bilirubin (test code = Bilirubin) Negative Glucose (test code = Glucose) Negative Appearance (test code = Appearance) Clear Color (test code = Color) Yellow [facility] GroupUrinalysis macro (dipstick) panel - [id number] 14:06:00* Test Item Value Reference Range Interpretation Comme nts Leukocytes (test code = Leukocytes) Small Nitrite (test code = Nitrite) negative Urobilinogen (test code = Urobilinogen) .2 Protein (test code = Protein) Negative pH (test code = pH) 7.5 Blood (test code = Blood) Negative Specific [place] (test code = Specific [place]) 1.020 Ketone (test code = Ketone) Negative Bilirubin (test code = Bilirubin) Negative Glucose (test code = Glucose) Negative Appearance (test code = Appearance) Clear Color (test code = Color) Yellow [facility] Hospitaldifferential panel, [id number] 11:50:00 NeutrophilsBandLymphocyteAtypical LymphMonocyteEosinophilBasophilMetamyelocyteMyelocyteBlastsNucleated Red Blood CellDifferential CommentPlatelet EstimatePlatelet MorphologyHypochromasiaPoikilocytosisAnisocytosisTarget CellsStomatocyteToxic GranulationBurr CellsRouleauToxic Vacuolationneutrophils-Pb gqi-Pzfojgaympdu-GUysfbjel xadepw-Thadxapwoj-RTswksududhnSpmsxdttfkqz comment-P [facility] HospitalCB W Auto Differential panel - [id number] 11:50:00 * Test Item Value Reference Range Interpretation Comme nts white blood count (test code = white blood count) 12.7 K/uL 4.0-11.5 H red blood count (test code = red blood count) 4.03 M/uL 3.80-5.20 hemoglobin (test code = hemoglobin) 10.8 g/dL 10.5-15.7 hematocrit (test code = hematocrit) 34.5 % 34.0-50.0 MCV [Entitic volume] (test c ode = 47064-7) 85.6 fL 86-100 L mean corpuscular hemoglobin (test code = mean corpuscular hemoglobin) 26.8 pg 26.2-33.4 mean corpuscular HGB conc (t est code = mean corpuscular HGB conc) 31.3 g/dL 30-34 red cell distribution width (test code = red cell distribution width) 14.9 % 12.0-15.5 platelet count (test code = platelet count) 224 K/uL 165-450 mean platelet volume (test c ode = mean platelet volume) 12.2 fL 9.4-12.6 Segmented neutrophils/100 leukocytes in Blood (test code = 63790-3) 74.7 % 44.4-80.1 Immature granulocytes [#/vol ume] in Blood (test code = 14389-1) 0.1 K/uL 0.0-0.03 H lymphocyte% (test code = lymphocyte%) 15.5 % 10.0-50.0 mono % (test code = mono %) 7.9 % 3.6-12.0 eos % (test code = eos %) 0.6 % 0.0-5.4 Basophils/100 leukocytes in Unspecified specimen (test code = 79716-7) 0.2 % 0.1-1.2 Band form neutrophils [#/vol ume] in Blood (test code = 40840-5) 9.51 K/uL 1.56-6.13 H Lymphocytes [#/volume] in Unspecified specimen by Automated count (test code = 13292-5) 2.0 K/uL 1.18-3.74 mono # (test code = mono #) 1.00 K/uL 0.24-0.86 H eos # (test code = eos #) 0.07 K/uL 0.04-0.36 basophil # (test code = baso tristan #) 0.02 K/uL 0.01-0.08 NRBC% (test code = NRBC%) 0 /100 WBC 0-0.2 NRBC# (test code = NRBC#) 0 K/uL [facility] GroupDifferential panel, method unspecified - [id number] 11:50:00NeutrophilsBandLymphocyteAtypical LymphMonocyteEosinophilBasophilMetamyelocyteMyelocyteBlastsNucleated Red Blood CellDifferential CommentPlatelet EstimatePlatelet MorphologyHypochromasiaPoikilocytosisAnisocytosisTarget CellsStomatocyteToxic GranulationBurr CellsRouleauToxic Vacuolationneutrophils-Pb pza-Cwbcfotuwvcq-FPkbebseu mtcvak-Xfvopisnwh-LKzciedlhewuDjjbilatszss comment-P [facility] GroupBlood group antibody screen [Presence] in Serum or Plasma 2020-01-12 11:50:00* Test Item Value Reference Range Interpretation Comme nts Blood group antibody screen [Presence] in Serum or Plasma (test code = 890-4) negative [facility] GroupHIV 1+2 Ab [Presence] in [id number] 11:50:00HIV P24 AgHIV-1/2 AbMaPascagoula HospitalReagin Ab [Presence] in Serum by RPR 2020-01-12 11:50:00RPR ConfirmationH. C. Watkins Memorial Hospitalpap, LB + CT/NG/TV + reflex HR [id number] 00:00:00* Test Item Value Reference Range Interpretation Comme nts chlamydia trachomatis by candace l-time PCR (reflex to azithromycin resistance by pyrosequencing) (test code = chlamydia trachomatis by real-time PCR (reflex to azithromycin resistance by pyrosequencing)) negative trichomonas vaginalis by candace l-time PCR (reflex to metronidazole resistance) (test code = trichomonas vaginalis by real-time PCR (reflex to metronidazole resistance)) negative neisseria gonorrhoeae by candace l-time PCR (reflex to antibiotic resistance by molecular analysis) (test code = neisseria gonorrhoeae by real-time PCR (reflex to antibiotic resistance by molecular analysis)) negative liquid Pap test with reflex to HPV type-detect 3.0 high risk if ASCUS (test code = liquid Pap test with reflex to HPV type-detect 3.0 high risk if ASCUS) negative [facility] W Auto Differential panel - [id number] 02:22:00 * Test Item Value Reference Range Interpretation Comme nts white blood count (test code = white blood count) 11.2 K/uL 4.0-11.5 red blood count (test code = red blood count) 4.11 M/uL 3.80-5.20 hemoglobin (test code = hemoglobin) 11.3 g/dL 10.5-15.7 hematocrit (test code = hematocrit) 35.2 % 34.0-50.0 Erythrocyte mean corpuscular volume [Entitic volume] (test code = 67375-9) 85.6 fL 86-100 L mean corpuscular hemoglobin (test code = mean corpuscular hemoglobin) 27.5 pg 26.2-33.4 mean corpuscular HGB conc (t est code = mean corpuscular HGB conc) 32.1 g/dL 30-34 red cell distribution width (test code = red cell distribution width) 14.3 % 12.0-15.5 platelet count (test code = platelet count) 219 K/uL 165-450 mean platelet volume (test c ode = mean platelet volume) 12.5 fL 9.4-12.6 Neutrophils.segmented/100 leukocytes in Blood (test code = 24799-6) 75.5 % 44.4-80.1 Granulocytes Immature [#/vol ume] in Blood (test code = 99716-7) 0.1 K/uL 0.0-0.03 H lymphocyte% (test code = lymphocyte%) 15.0 % 10.0-50.0 mono % (test code = mono %) 8.4 % 3.6-12.0 eos % (test code = eos %) 0.6 % 0.0-5.4 Basophils/100 leukocytes in Unspecified specimen (test code = 92624-0) 0.1 % 0.1-1.2 Neutrophils.band form [#/vol ume] in Blood (test code = 42467-9) 8.42 K/uL 1.56-6.13 H Lymphocytes [#/volume] in Unspecified specimen by Automated count (test code = 98492-7) 1.7 K/uL 1.18-3.74 mono # (test code = mono #) 0.94 K/uL 0.24-0.86 H eos # (test code = eos #) 0.07 K/uL 0.04-0.36 basophil # (test code = baso tristan #) 0.01 K/uL 0.01-0.08 NRBC% (test code = NRBC%) 0 /100 WBC 0-0.2 NRBC# (test code = NRBC#) 0 K/uL [facility] GroupHIV 1+2 Ab [Presence] in [id number] 02:22:00HIV P24 AgHIV-1/2 AbMatagoMerit Health NatchezHepatitis B virus surface Ag [Presence] in [id number] 02:22:00* Test Item Value Reference Range Interpretation Comme nts .hepatitis B surface antigen (test code = .hepatitis B surface antigen) negative negative [facility] HospitalBacteria identified in Urine by [id number] 02:22:00* Test Item Value Reference Range Interpretation Comme nts Bacteria identified in Urine by Culture (test code = 630-4) no growth after 2 days [facility] GroupReagin Ab [Presence] in Serum by [id number] 02:22:00* Test Item Value Reference Range Interpretation Comme nts Reagin Ab [Presence] in Seru m by RPR (test code = 11738-6) nonreactive nonreactive [facility] GroupABO & Rh group [Type] in [id number] 02:19:00* Test Item Value Reference Range Interpretation Comme nts Rh [Type] in Blood (test cod e = 62919-1) 4+ ABO and Rh group panel - Blo od (test code = 32109-8) O positive [facility] GroupBlood group antibody screen [Presence] in Serum or Plasma 2019-12-08 02:19:00* Test Item Value Reference Range Interpretation Comme nts Blood group antibody screen [Presence] in Serum or Plasma (test code = 890-4) negative [facility] Notes Date/Time Note Provider Source Bandar Reynolds [facility]
[2025-02-19] MEDS ORDERED: CODEINE 30MG/APAP 300MG TAB ONE ×2 (10:03→10:04)
[2025-02-19] MEDS ORDERED: BUPIVACAINE 0.5% PF 10 ML VIAL ONE (10:03)
[2025-02-19] MEDS ORDERED: LIDOCAINE 1% 20 ML MDV ONE (10:03)
[2025-02-19] MEDS ORDERED: TDAP (DIPHTH,PERTUSS(ACELL),TET VAC) 0.5 ML VIAL IMVAC ONE (10:04)
[2025-02-19] MEDS ORDERED: CEFAZOLIN SODIUM 2 GM/VIAL ONE (10:30)
[2025-02-19] MEDS ORDERED: NA CHLORIDE 0.9% 100 ML ONE (10:30)
[2025-02-19] MEDS ORDERED: NA CHLORIDE 0.9% 500 ML ONE ×2 (10:32→11:35)
--- NOTE | 2025-02-19 10:38 | ER ---
Nurse's Notes [facility] Name: Gudelia Ferguson Age: 24 yrs Sex: Female : 2000 Arrival Date: 02/19/2025 Time: 09:42 Bed 15 Private MD: Diagnosis: Nondisplaced fracture of proximal phalanx of left index finger, initial encounter for open fracture;Laceration without foreign body of left index finger without damage to nail, initial encounter Presentation: 02/19 09:53 Chief complaint: Patient states: Garage door rolled over left first finger. Care prior jl to arrival: None. Mechanism of Injury: Crush injury from garage door that had unknown weight. Extrication was not required. 09:53 Acuity: CYNTHIA 2 jl7 09:53 Method Of Arrival: Ambulatory [facility] 10:00 Trauma event details: Injury occurred in the [facility], Injury occurred: at [facility] home. Injury occurred: February 19, 2025. 10:00 Coronavirus screen: At this time, the client does not indicate any symptoms associated [facility] with coronavirus-19. Ebola Screen: No symptoms or risks identified at this time. Initial Sepsis Screen: Does the patient meet any 2 criteria? No. Patient's initial sepsis screen is negative. Does the patient have a suspected source of infection? No. Patient's initial sepsis screen is negative. Risk Assessment: Do you want to hurt yourself or someone else? Patient reports no desire to harm self or others. Onset of symptoms was February 19, 2025. Triage Assessment: 09:55 General: Appears in no apparent distress. uncomfortable, Behavior is calm, cooperative, jl7 appropriate for age. Pain: Complains of pain in left index finger and palmar aspect of proximal phalanx of left index finger Pain currently is 5 out of 10 on a pain scale. Injury Description: Crush injury sustained to left index finger is macerated was sustained less than 30 minutes ago. 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 - Infectious Disease History:: Denies. - Immunization history: Last tetanus immunization: unknown. - Social history:: Smoking status: Patient denies any tobacco usage or history of. Screenin:45 Abuse screen: Denies threats or abuse. Denies injuries from another. Tuberculosis jl7 screening: No symptoms or risk factors identified. 11:00 [facility] ED Fall Risk Assessment (Adult) History of falling in the last 3 months, jl7 including since admission No falls in past 3 months (0 pts) Confusion or Disorientation No (0 pts) Intoxicated or Sedated No (0 pts) Impaired Gait No (0 pts) Mobility Assist Device Used No (0 pt) Altered Elimination No (0 pt) Score/Fall Risk Level 0 - 2 = Low Risk Oriented to surroundings, Maintained a safe environment. Nutritional screening: No deficits noted. Primary Survey: : NO uncontrolled hemorrhage observed. A: The client is awake and alert. The airway is jl7 patent. Breathing/Chest: Spontaneous respiratory effort, equal unlabored respirations, breath sounds clear bilaterally, regular pattern, symmetrical chest rise and fall. Circulation: No external hemorrhage present. Regular and strong central pulse, skin warm/dry/normal color. Disability Client is alert. Exposure/Environment: There is no evidence of uncontrolled external bleeding. Obvious injury(ies) are noted at this time: crush injury to left first finger A warming method has been applied: pt does not want a warm blanket at this time. 10:30 Reassessment Alertness and Airway: Awake and alert. The airway is patent. Breathing: jl7 Spontaneous respiratory effort, equal unlabored respirations, breath sounds clear bilaterally, regular pattern with symmetrical chest rise and fall. Circulation: No external hemorrhage noted. Regular and strong central pulse, skin warm/dry/normal color. Disability: Alert. Secondary Survey: :55 Injury Description: Crush injury sustained to left index finger is macerated. jl7 Assessment: :55 General: See triage. jl7 11:00 Reassessment: Patient appears in no apparent distress at this time. Patient and/or jl7 family updated on plan of care and expected duration. Pain level reassessed. Patient is alert, oriented x 3, equal unlabored respirations, skin warm/dry/pink. Patient denies pain at this time. Vital Signs: 09:55 BP 142 / 95; Pulse 83; Resp 17; Temp 98.8; Pulse Ox 98% ; Weight 81.65 kg; Height 5 ft. jl7 3 in. ; Pain 5/10; 10:45 BP 136 / 88; Pulse 86; Resp 15; Pulse Ox 100% ; jl7 11:30 BP 135 / 75; Pulse 81; Resp 15; Pulse Ox 100% ; Pain 0/10; jl7 09:55 Body Mass Index 31.89 (81.65 kg, 160.02 cm) jl7 09:55 Pain Scale: Adult jl7 11:30 Pain Scale: Adult jl7 Fidel Coma Score: 09:55 Eye Response: spontaneous(4). Motor Response: obeys commands(6). Verbal Response: jl7 oriented(5). Total: 15. Trauma Score (Adult): 09:55 Eye Response: spontaneous(1); Verbal Response: oriented(1); Motor Response: obeys jl7 commands(2); Systolic BP: > 89 mm Hg(4); Respiratory Rate: 10 to 29 per min(4); [place] Score: 15; Trauma Score: 12 ED Course: 09:43 Patient arrived in ED. im 09:47 Sathya Benz, TOBY is Primary Nurse. jl7 09:47 Rodo Osorio PA is PHCP. cp 09:47 Rk uCrrie MD is Attending Physician. cp 09:55 Triage completed. jl7 09:55 Arm band placed on right wrist. jl7 10:28 XRAY Hand LEFT 3 View In Process Unspecified. EDMS 10:45 Patient has correct armband on for positive identification. jl7 10:45 Patient maintains SpO2 saturation greater than 95% on room air. Thermoregulation: pt jl7 does not want warm blanket at this time. 10:45 Inserted saline lock: 22 gauge in right antecubital area, using aseptic technique. jl7 Flushed with 10 mL NS. 10:[address] a transfer with Lane from the [facility]/. eb 11:00 connected the hand surgeon decision unit rn for [facility] with Rodo Banks for patient eb transfer consultation. 11:00 Provided Education on: use of call [place]. jl7 11:00 Assist provider with laceration repair on left index finger that was between 2.6 to 7.5 jl7 cm using sutures. Set up tray. Performed by Rodo BANKS Dressed with Kerlix, Patient tolerated well. Patient transferred, IV remains in place. intact, No redness/swelling at site. 11:01 administrative approval given by Lane Sanchez Rn/ patient has been accepted to [facility] ED/ Dr. Jeffrey Sommers has accepted the patient in transfer/ report to be called to [phone]. Administered Medications: 10:11 Drug: Boostrix Tdap IM 0.5 ml IM once; as a single dose Route: IM; Site: right deltoid; jl7 11:42 Follow up: Response: No adverse reaction jl7 10:11 Drug: Acetaminophen-Codeine PO (300 mg-30 mg) 2 tabs PO once; RASS on ADMIN: Combtv4, jl7 Very Agttd3, Agttd2, Rstlss1, AlertClm0, Drwsy-1, Lt Sdtn-2, Mod Sdtn-3, Dp Sdtn-4, UnArsble-5 Route: PO; 11:00 Follow up: Response: No adverse reaction; Pain is decreased; RASS: Alert and Calm (0) jl7 10:54 Drug: NS 0.9% IV 1000 ml IV at 1 bolus Per protocol; to be given as a bolus over 60 jl7 minutes Route: IV; Rate: 1 bolus; Site: right antecubital; 11:42 Follow up: IV Status: Infusion continued upon transfer jl7 10:54 Drug: ceFAZolin IVPB 2 grams IVPB once over 30 mins; (mix in 100 mL NS) Route: IVPB; jl7 Infused Over: 30 mins; Site: right antecubital; 11:30 Follow up: Response: No adverse reaction; IV Status: Completed infusion 7 11:43 Drug: Lidocaine Infiltration (1 %) 10 ml 5 ml Infiltration once; to bedside {Note: jl7 administered by ERP.} Volume: 5 ml; Route: Infiltration; :44 Follow up: Response: No adverse reaction 7 11:43 Drug: Bupivacaine Infiltration (0.5 %) 10 ml 10 ml Infiltration once {Note: jl7 administered by ERP.} Volume: 10 ml; Route: Infiltration; 11:43 Follow up: Response: No adverse reaction jl7 Medication: 11:00 Vaccine Information Statement (VIS) provided today. Questions and/or concerns jl7 addressed. VIS edition date: June 14, 2021. Outcome: 10:37 ER care complete, transfer ordered by MD. rivas 11:55 Transferred by ground EMS to [facility], Transfer form jl7 completed. 11:55 Condition: stable 11:55 Discharge instructions given to patient, family, Instructed on the need for transfer, Demonstrated understanding of instructions, 11:55 Patient left the ED. jl7 Signatures: Dispatcher [employer] EDMS Rodo Osorio PA PA cp Leal, Jahala, RN RN jl7 Irma Tucker Itzel im Corrections: (The following items were deleted from the chart) 11:54 09:55 Exposure/Environment: There is no evidence of uncontrolled external bleeding. jl7 Obvious injury(ies) are noted at this time: crush injury to left first finger A warming method has been applied: A warm blanket has been provided to the patient. jl7 11:54 10:45 Thermoregulation: warm blanket given to patient. jl7 jl7
--- NOTE | 2025-02-19 10:38 | EDPHYS ---
Physician Documentation [facility] Name: Gudelia Ferguson Age: 24 yrs Sex: Female : 2000 Arrival Date: 02/19/2025 Time: 09:42 Bed 15 Private MD: ED Physician Rk Currie HPI: 02/19 09:55 This 24 yrs old Female presents to ER via Ambulatory with complaints of Crush cp Injury To Hand. 09:55 The patient or guardian reports injury, pain. The complaints affect the left index cp finger. Context: crush injury from opening of garage door. Onset: The symptoms/episode began/occurred just prior to arrival. Associated signs and symptoms: The patient has no apparent associated signs or symptoms. 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 - Infectious Disease History:: Denies. - Immunization history: Last tetanus immunization: unknown. - Social history:: Smoking status: Patient denies any tobacco usage or history of. ROS: 10:00 MS/extremity: Positive for injury or acute deformity, pain, of the left index finger, cp Negative for decreased range of motion, numbness, 10:00 Constitutional: Negative for fever, cp 10:00 Neck: Negative for pain with movement, pain at rest, 10:00 Back: Negative for pain at rest, pain with movement, 10:00 Neuro: Negative for numbness, tingling, weakness, 10:00 All other systems are negative, Exam: 10:05 Constitutional: The patient appears in no acute distress, alert, awake, non-toxic, well cp developed, well nourished, uncomfortable, 10:05 Head/Face: Normocephalic, atraumatic. cp 10:05 Eyes: Periorbital structures: appear normal, Conjunctiva: normal, no exudate, no injection, Sclera: no appreciated abnormality, Lids and lashes: appear normal, bilaterally, 10:05 ENT: External ear(s): are unremarkable, Nose: is normal, Mouth: Lips: moist, Oral mucosa: moist, Posterior pharynx: Airway: no evidence of obstruction, patent, 10:05 Chest/axilla: Inspection: normal, 10:05 Cardiovascular: Rate: normal, Rhythm: regular, 10:05 Respiratory: the patient does not display signs of respiratory distress, Respirations: normal, no use of accessory muscles, no retractions, labored breathing, is not present, Breath sounds: are clear throughout, no decreased breath sounds, no stridor, no wheezing, 10:05 Abdomen/GI: Exam negative for discomfort, distension, guarding, Inspection: abdomen appears normal, 10:05 Back: pain, is absent, 10:05 Musculoskeletal/extremity: Extremities: grossly normal except: noted in the left index finger: laceration noted diamond side of proximal to middle phalanx, flexor tendon exposed and appears intact, mild bleeding, digit neurovascular intact, Vital Signs: 09:55 BP 142 / 95; Pulse 83; Resp 17; Temp 98.8; Pulse Ox 98% ; Weight 81.65 kg; Height 5 ft. jl7 3 in. ; Pain 5/10; 10:45 BP 136 / 88; Pulse 86; Resp 15; Pulse Ox 100% ; jl7 11:30 BP 135 / 75; Pulse 81; Resp 15; Pulse Ox 100% ; Pain 0/10; jl7 09:55 Body Mass Index 31.89 (81.65 kg, 160.02 cm) jl7 09:55 Pain Scale: Adult jl7 11:30 Pain Scale: Adult jl7 [place] Coma Score: 09:55 Eye Response: spontaneous(4). Motor Response: obeys commands(6). Verbal Response: jl7 oriented(5). Total: 15. Trauma Score (Adult): 09:55 Eye Response: spontaneous(1); Verbal Response: oriented(1); Motor Response: obeys jl7 commands(2); Systolic BP: > 89 mm Hg(4); Respiratory Rate: 10 to 29 per min(4); Fidel Score: 15; Trauma Score: 12 Laceration: 11:45 Wound Repair of 3.5cm ( 1.4in ) subcutaneous laceration to palmar aspect of left index cp finger. Irregularly shaped.. Distal neuro/vascular/tendon intact. Anesthesia: Digital block administered with 5 mls of Lido/Marcaine. Wound prep: Moderate cleansing by me, Wound irrigation by me. Skin closed with 3 4-0 Vicryl using loose closure. Dressed with 4x4's, Kerlix. Patient tolerated well. MDM: 09:48 Medical Screening Exam initiated 10:00 Differential diagnosis: dislocation, open fracture, closed fracture, contusion, tendon cp rupture. 10:35 Data reviewed: vital signs, nurses notes, radiologic studies, plain films, I have discussed the patient's presentation/case with the attending Emergency Department Physician; and as a result, I will transfer patient for hand surgery consultation. 10:35 I considered the following discharge prescriptions or medication management in the emergency department Medications were administered in the Emergency Department. See MAR. Independent interpretation of the following test(s) in the Emergency Department X-Ray: My interpretation is images of left hand show intraarticular fracture of proximal phalanx left index finger. Special discussion: I discussed in detail with the patient the higher chance of wound infection based on his presenting history. 02/19 09:54 Order name: Urinalysis W/Microscopic cp 02/19 09:54 Order name: Test, Urine cp 02/19 10:23 Order name: Basic Metabolic Panel cp 02/19 10:23 Order name: CBC with Diff cp 02/19 10:23 Order name: Test, Serum cp 02/19 10:23 Order name: PT-INR cp 02/19 10:23 Order name: Ptt, Activated cp 02/19 09:54 Order name: XRAY Hand LEFT 3 View cp 02/19 10:23 Order name: Labs collected and sent; Complete Time: 11:43 cp 02/19 10:23 Order name: NPO; Complete Time: 10:24 cp 02/19 11:00 Order name: Labs - recollect needed: recollect chemistries/ hemolyzed per Ty; Complete eb Time: 11:44 Administered Medications: 10:11 Drug: Boostrix Tdap IM 0.5 ml IM once; as a single dose Route: IM; Site: right deltoid; jl7 11:42 Follow up: Response: No adverse reaction jl7 10:11 Drug: Acetaminophen-Codeine PO (300 mg-30 mg) 2 tabs PO once; RASS on ADMIN: Combtv4, jl7 Very Agttd3, Agttd2, Rstlss1, AlertClm0, Drwsy-1, Lt Sdtn-2, Mod Sdtn-3, Dp Sdtn-4, UnArsble-5 Route: PO; 11:00 Follow up: Response: No adverse reaction; Pain is decreased; RASS: Alert and Calm (0) jl7 10:54 Drug: NS 0.9% IV 1000 ml IV at 1 bolus Per protocol; to be given as a bolus over 60 jl7 minutes Route: IV; Rate: 1 bolus; Site: right antecubital; 11:42 Follow up: IV Status: Infusion continued upon transfer jl7 10:54 Drug: ceFAZolin IVPB 2 grams IVPB once over 30 mins; (mix in 100 mL NS) Route: IVPB; jl7 Infused Over: 30 mins; Site: right antecubital; 11:30 Follow up: Response: No adverse reaction; IV Status: Completed infusion jl7 11:43 Drug: Lidocaine Infiltration (1 %) 10 ml 5 ml Infiltration once; to bedside {Note: jl7 administered by ERP.} Volume: 5 ml; Route: Infiltration; 11:44 Follow up: Response: No adverse reaction jl7 11:43 Drug: Bupivacaine Infiltration (0.5 %) 10 ml 10 ml Infiltration once {Note: jl7 administered by ERP.} Volume: 10 ml; Route: Infiltration; 11:43 Follow up: Response: No adverse reaction jl7 Disposition: 02/20 09:37 Chart complete. cp 10:53 Co-signature as Attending Physician, Rk Currie MD I reviewed the patient's care rn provided by the Advanced Practice Provider and agree with the diagnosis and treatment plan. Disposition Summary: 02/19/25 10:37 Transfer Ordered Notes: Reason: Higher level of care cp Condition: Stable cp Problem: new cp Symptoms: have improved cp Transfer Location: [facility](02/19/25 11:37) cp Accepting Physician: doctor(02/19/25 11:55) jl7 Diagnosis - Nondisplaced fracture of proximal phalanx of left index finger, initial encounter cp for open fracture - Laceration without foreign body of left index finger without damage to nail, cp initial encounter Forms: - Medication Reconciliation Form cp - SBAR form cp Signatures: Dispatcher [employer] Rk Russo MD MD rn Page, Corey, PA PA cp Leal, Jahala RN RN jl7 Irma Tucker Corrections: (The following items were deleted from the chart) 02/19 10:24 10:24 BASIC METABOLIC PANEL+C.LAB.BRZ ordered. EDMS EDMS 10:24 10:24 CBC+H.LAB.BRZ ordered. EDMS EDMS 10:24 10:24 TEST, SERUM+SC.LAB.BRZ ordered. EDMS EDMS 10:24 10:24 PROTIME (+INR)+COAG.LAB.BRZ ordered. EDMS EDMS 10:24 10:24 PTT, ACTIVATED+COAG.LAB.BRZ ordered. EDMS EDMS 11:37 10:37 doctor cp cp 11:37 10:37 Other Acute Care Facility cp cp 11:55 11:37 doctor cp jl7
[2025-02-19 10:53] LABS: Absolute Basophils 0.1 K/uL (0-0.5); Absolute Eosinophils 0.2 K/uL (0-0.5); Absolute Lymphocytes (CBC) 2.2 K/uL (0.7-4.9); Absolute Monocytes 0.7 K/uL (0.1-1.3); Absolute Neutrophil 6.1 K/uL (1.8-8.0); Basophils % 0.6 % (0-1.3); Eosinophils % 1.6 % (0-4.4); Hematocrit 36.3 % (36.0-45.0); Lymphocytes % 24.1 % (15.3-44.8); MCH 27.1 pg (27.0-35.0); MCV 82.2 fL (80-100); MPV 9.3 fL (7.6-11.3); Monocytes % 7.8 % (3.3-12.3); Neutrophils % 65.9 % (41.7-73.7); Platelets 252 thou/uL (152-406); RBC Red Blood Cell Count 4.42 M/uL (3.86-4.86); Red Cell Distribution Width 14.1 % (12.1-15.2)
[2025-02-19 11:07] LABS: PT Prothrombin Time 11.5 SECONDS (10-13.0); PTT, Activated Partial Thromb 32.4 SECONDS (27.2-37.4); Protime INR 1.01
--- NOTE | 2025-02-19 11:28 | RAD REPORT ---
EXAM: XR Hand Left 3 View HISTORY: crush injury Bed Name: 15 COMPARISON: None TECHNIQUE: 3 radiographic views of the RIGHT hand submitted. FINDINGS: Oblique undisplaced fracture of the head of the second digit proximal phalanx with intra-ar ticular extension best appreciated on the AP view. Joint alignment is maintained. Soft tissue swelling about the second digit with irregularity anteriorly, correlate for laceration. No significan t degenerative changes are present. IMPRESSION: Oblique nondisplaced fracture of the head of the second digit proximal phalanx with intra-articular e xtension.
[2025-02-19 11:41] LABS: Urine Bacteria None Seen /HPF (<20); Urine Bilirubin NEGATIVE (Negative); Urine Blood Negative (Negative); Urine Clarity Extremely Turbid (Clear); Urine Color Light-Yellow (Yellow); Urine Culture Reflex Order NOT NEEDED; Urine Glucose NEGATIVE (Negative); Urine Ketones NEGATIVE (Negative); Urine Micro Reflex YN NO BILL MICROSCOPIC; Urine Nitrite NEGATIVE (Negative); Urine Protein NEGATIVE (Negative); Urine RBC <5 /HPF (None Seen); Urine Urobilinogen Normal (Normal); Urine WBC <5 /HPF (<5); Urine WBC Clump Rare /HPF (None Seen); Urine Yeast (Budding) Trace /HPF (None Seen); Urine pH 6.5 (5.0-7.0)
[2025-02-19 11:53] LABS: Anion Gap 10.3 mEq/L (5.0-15.0); Potassium 3.3 mEq/L (3.5-5.1)
[2025-02-19 12:18] VITALS: TEMP 98.8
[2025-02-19 12:19] VITALS: O2SAT 100
[2025-02-19 12:21] VITALS: BP 135/75
== END 2025-02-19 11:55 | disposition short-term general hospital (02) ==
LOC: ER 09:42
DX: S62.641B Nondisplaced fracture of proximal phalanx of left index finger, initial encounter for open fracture (principal); W23.0XXA Caught, crushed, jammed, or pinched between moving objects, initial encounter
CPT/HCPCS: 12042; 36415; 80048; 81001; 81025; 84703; 85025; 85610; 85730; 90715; 96365; 96372; 99285; J2003; J7040

== ENCOUNTER 2025-02-19 21:08 | Emergency (ER) | payer SELFPAY ==
--- OUTSIDE RECORDS SUMMARY | 2025-02-19 21:12 | XMS REPORT | Continuity of Care Document ---
Author Name Unknown Address [address] [facility]. [address] [place] [address] [facility] Address 1200 [facility] [address] [place] [address] Care Team Providers Care Extruding Department Supervisor Name Role Phone Dakota Lewis Primary Care Physician [phone] MYRA BRODY Attending Clinician Unavailable MYRA BRODY Attending Clinician Unavailable Brice Ventura MD Attending Clinician +- [phone] Myra Brody MD Attending Clinician [phone] MARCIAL LOZANO Attending Clinician Unavailab homa VAZQUEZ Attending Clinician Unavailable G_Pappas Attending Clinician Unavailable SONNY LEIJA Attending Clinician Unavailashley Navarro Attending Clinician Unavailable JUDITH CANALES Attending Clinician UnavailRAJWINDER Gillette Attending Clinician Unavailable BRUNILDA HUGGINS Attending Clinician Unavailable SHAHRIAR EVANS Attending Clinician Unav ailable RODRIGUEZ, YAN Attending Clinician Unavailable TAYLOR Admitting Clinician Unavailable G_Pappas Admitting Clinician Unavailable BALAJI, SONNY A Admitting Clinician Unavailabl e Shield Admitting Clinician Unavailable Payers Payer Name Policy Type Policy Number Effective Date Expirati on Date Source [facility] (MEDICAID REPLACEMENT - HMO) [id number] 2019 00:00:00 [place] [facility] [id number] Problems Condition Name Condition Details Condition Category Status Onset Date Resolution Date Last Treatment Date Treating Clinician Comments Source Proximal phalanx fracture of finger Proximal phalanx fracture of finger Disease Active 02-19 00:00: 00 Katerine Shaver Small for gestationa l age fetus Small for Gestationa l Age Fetus Problem Active [facility] History of ectopic History of Ectopic Problem Active [facility] Carrier of alpha thalassemi a Carrier of Alpha Thalassemi a Problem Active [facility] Social History Social Habit Start Date Stop Date Quantity Comments Source [facility] Gender identity [facility] Fack[facility] Sexual orientation [facility] Tobacco use and exposure 2025-02-19 00:00:00 2025-02-19 00:00:00 Smokeless tobacco non-user [facility] History of Social function 2025-02-19 00:00:00 2025-02-19 00:00:00 [facility] Smoking Status Start Date Stop Date Source Never smoked tobacco Katerine Shaver Medications Ordered Medication Name Filled Medication Name Start Date Stop Date Current Medication? Ordering Clinician Indication Dosage Frequency Signature (SIG) Comments Components Source bacitracin ointment bacitracin ointment 02-19 19:10: 00 Yes [id number] 3D Topical, 3 times daily, First dose on 02/19/25 at 1910 Katerine Shaver bacitracin- polymixin B (Polysporin ) 500-51736 UNIT/GM ointment bacitracin- polymixin B (Polysporin ) 500-16293 UNIT/GM ointment 02-19 17:25: 00 02-19 17:30 :00 No Topical, Once, On 02/19/25 at 1725, For 1 dose Katerine Shaver bacitracin- polymixin B (Polysporin ) 500-99320 UNIT/GM ointment - Pyxis Override Pull bacitracin- polymixin B (Polysporin ) 500-28020 UNIT/GM ointment - Pyxis Override Pull 02-19 17:24: 05 02-19 17:30 :00 No Starting on 02/19/25 at 1724, For 1 dose, Created by cabinet override Katerine Shaver ketorolac (Toradol) injection 15 mg ketorolac (Toradol) injection 15 mg 02-19 15:05: 00 02-19 15:13 :00 No 15mg 15 mg, Intravenou s, Once, On 02/19/25 at 1505, For 1 dose Katerine Shaver amoxicillin -clavulanat e (Augmentin) 875-125 MG tablet amoxicillin -clavulanat e (Augmentin) 875-125 MG tablet 02-19 00:00: 00 02-26 23:59 :00 No 875mg Q12H Take 1 tablet by mouth in the morning and 1 tablet in the evening. Do all this for 7 days. Katerine Shaver ibuprofen 600 MG tablet ibuprofen 600 MG tablet 02-19 00:00: 00 02-26 23:59 :00 No 600mg Q6H Take 1 tablet by mouth every 6 hours if needed for mild pain (1-3) for up to 7 days. Katerine Shaver acetaminoph en-codeine (Tylenol w/ Codeine #3) 300-30 MG tablet acetaminoph en-codeine (Tylenol w/ Codeine #3) 300-30 MG tablet 02-19 00:00: 00 02-26 23:59 :00 No 1{tbl} Q6H Take 1 tablet by mouth every 6 hours if needed for severe pain (7-10) for up to 7 days. Katerine Shaver Ferate 240 mg (27 mg iron) tablet TAKE 1 TABLET EVERY DAY BY ORAL ROUTE. Ferate 240 mg (27 mg iron) tablet TAKE 1 TABLET EVERY DAY BY ORAL ROUTE. No Ferate 240 mg (27 mg iron) tablet TAKE 1 TABLET EVERY DAY BY ORAL ROUTE. [facility] Vitafol-One 29 mg iron-1 mg-200 mg capsule TAKE 1 CAPSULE EVERY DAY BY ORAL ROUTE AT BEDTIME. Vitafol-One 29 mg iron-1 mg-200 mg capsule TAKE 1 CAPSULE EVERY DAY BY ORAL ROUTE AT BEDTIME. No Vitafol-On e 29 mg iron-1 mg-200 mg capsule TAKE 1 CAPSULE EVERY DAY BY ORAL ROUTE AT BEDTIME. [facility] amoxicillin 500 mg capsule TAKE ONE (1) CAPSULE(S) BY MOUTH TWICE A DAY FOR INFECTION. amoxicillin 500 mg capsule TAKE ONE (1) CAPSULE(S) BY MOUTH TWICE A DAY FOR INFECTION. No amoxicilli n 500 mg capsule TAKE ONE (1) CAPSULE(S) BY MOUTH TWICE A DAY FOR INFECTION. [facility] Junel FE 11/28 (28) 1 mg-20 mcg (21)/75 mg (7) tablet Take 1 tablet every day by oral route. Junel FE 11/28 () 1 mg-20 mcg (21)/75 mg (7) tablet Take 1 tablet every day by oral route. No 1 Q1D Junel FE 11/28 (28) 1 mg-20 mcg (21)/75 mg (7) tablet Take 1 tablet every day by oral route. [facility] amoxicillin 500 mg capsule TAKE ONE (1) CAPSULE(S) BY MOUTH TWICE A DAY FOR INFECTION. amoxicillin 500 mg capsule TAKE ONE (1) CAPSULE(S) BY MOUTH TWICE A DAY FOR INFECTION. No amoxicilli n 500 mg capsule TAKE ONE (1) CAPSULE(S) BY MOUTH TWICE A DAY FOR INFECTION. [facility] Hitesh Fe 11/28 () 1 mg-20 mcg (21)/75 mg (7) tablet TAKE 1 TABLET EVERY DAY BY ORAL ROUTE. Hitesh Fe 11/28 () 1 mg-20 mcg (21)/75 mg (7) tablet TAKE 1 TABLET EVERY DAY BY ORAL ROUTE. No Hitesh Fe 11/28 () 1 mg-20 mcg (21)/75 mg (7) tablet TAKE 1 TABLET EVERY DAY BY ORAL ROUTE. [facility] loratadine 10 mg tablet TAKE ONE (1) TABLET(S) BY MOUTH EVERY MORNING FOR ALLERGY SYMPTOMS. loratadine 10 mg tablet TAKE ONE (1) TABLET(S) BY MOUTH EVERY MORNING FOR ALLERGY SYMPTOMS. No loratadine 10 mg tablet TAKE ONE (1) TABLET(S) BY MOUTH EVERY MORNING FOR ALLERGY SYMPTOMS. [facility] Nexplanon 68 mg subdermal implant Inject 1 implant by subcutaneou s route. Nexplanon 68 mg subdermal implant Inject 1 implant by subcutaneou s route. No 1implan t(s) Nexplanon 68 mg subdermal implant Inject 1 implant by subcutaneo us route. [facility] Vital Signs Vital Name Observation Time Observation Value Comments S ource Heart rate 2025-02-19 16:48:59 60 /min [facility] Epic Respiratory rate 2025-02-19 16:48:59 18 /min [facility] Oxygen saturation in Arterial blood by Pulse oximetry 2025-02-19 16:48:59 100 /min [facility] Body temperature 2025-02-19 16:48:53 37.11 [facility] Systolic blood pressure 2025-02-19 16:48:29 137 mm[Hg] [facility] Diastolic blood pressure 2025-02-19 16:48:29 78 mm[Hg] [facility] Body height 2025-02-19 12:39:00 160 cm [facility] Body weight 2025-02-19 12:39:00 81 kg [facility] BMI 2025-02-19 12:39:00 31.63 kg/m2 [facility] Heart rate 2025-02-19 16:48:59 60 /min [facility] Epic Respiratory rate 2025-02-19 16:48:59 18 /min [facility] Oxygen saturation in Arterial blood by Pulse oximetry 2025-02-19 16:48:59 100 /min [facility] Body temperature 2025-02-19 16:48:53 37.11 [facility] Systolic blood pressure 2025-02-19 16:48:29 137 mm[Hg] [facility] Diastolic blood pressure 2025-02-19 16:48:29 78 mm[Hg] [facility] Body height 2025-02-19 12:39:00 160 cm [facility] Body weight 2025-02-19 12:39:00 81 kg [facility] BMI 2025-02-19 12:39:00 31.63 kg/m2 [facility] BP Diastolic 2023-04-03 00:00:00 83 mm[Hg] [facility] Height 2023-04-03 00:00:00 64 [in_i] [facility] BMI (Body Mass Index) 2023-04-03 00:00:00 30.1 kg/m2 [facility] BP Systolic 2023-04-03 00:00:00 123 mm[Hg] [facility] Body Weight 2023-04-03 00:00:00 175.2 [lb_av] [facility] BP Diastolic 2023-01-13 00:00:00 84 mm[Hg] [facility] Height 2023-01-13 00:00:00 64 [in_i] [facility] BMI (Body Mass Index) 2023-01-13 00:00:00 31.9 kg/m2 [facility] BP Systolic 2023-01-13 00:00:00 128 mm[Hg] [facility] Body Weight 2023-01-13 00:00:00 185.8 [lb_av] [facility] BP Diastolic 2022-02-18 00:00:00 87 mm[Hg] [facility] Height 2022-02-18 00:00:00 64 [in_i] [facility] BMI (Body Mass Index) 2022-02-18 00:00:00 31 kg/m2 [facility] BP Systolic 2022-02-18 00:00:00 126 mm[Hg] [facility] Body Weight 2022-02-18 00:00:00 180.4 [lb_av] [facility] BP Diastolic 2022-02-13 00:00:00 89 mm[Hg] [facility] Height 2022-02-13 00:00:00 64 [in_i] [facility] BMI (Body Mass Index) 2022-02-13 00:00:00 30.3 kg/m2 [facility] BP Systolic 2022-02-13 00:00:00 134 mm[Hg] [facility] Body Weight 2022-02-13 00:00:00 176.7 [lb_av] [facility] BP Diastolic 2022-02-06 00:00:00 85 mm[Hg] [facility] Height 2022-02-06 00:00:00 64 [in_i] [facility] BMI (Body Mass Index) 2022-02-06 00:00:00 30.7 kg/m2 [facility] BP Systolic 2022-02-06 00:00:00 120 mm[Hg] [facility] Body Weight 2022-02-06 00:00:00 179 [lb_av] [facility] BP Diastolic 2022-01-29 00:00:00 91 mm[Hg] [facility] Height 2022-01-29 00:00:00 64 [in_i] [facility] BP Systolic 2022-01-29 00:00:00 123 mm[Hg] [facility] Body Weight 2022-01-29 00:00:00 175 [lb_av] [facility] BP Diastolic 2022-01-09 00:00:00 76 mm[Hg] [facility] Height 2022-01-09 00:00:00 64 [in_i] [facility] BMI (Body Mass Index) 2022-01-09 00:00:00 29.9 kg/m2 [facility] BP Systolic 2022-01-09 00:00:00 122 mm[Hg] [facility] Body Weight 2022-01-09 00:00:00 174.4 [lb_av] [facility] BP Diastolic 2021-11-21 00:00:00 73 mm[Hg] [facility] Height 2021-11-21 00:00:00 64 [in_i] [facility] BMI (Body Mass Index) 2021-11-21 00:00:00 29.7 kg/m2 [facility] BP Systolic 2021-11-21 00:00:00 123 mm[Hg] [facility] Body Weight 2021-11-21 00:00:00 173.1 [lb_av] [facility] BP Diastolic 2021-10-18 00:00:00 75 mm[Hg] [facility] Height 2021-10-18 00:00:00 64 [in_i] [facility] BMI (Body Mass Index) 2021-10-18 00:00:00 30 kg/m2 [facility] BP Systolic 2021-10-18 00:00:00 112 mm[Hg] [facility] Body Weight 2021-10-18 00:00:00 175 [lb_av] [facility] BP Diastolic 2021-09-19 00:00:00 80 mm[Hg] [facility] Height 2021-09-19 00:00:00 64 [in_i] [facility] BMI (Body Mass Index) 2021-09-19 00:00:00 29.5 kg/m2 [facility] BP Systolic 2021-09-19 00:00:00 123 mm[Hg] [facility] Body Weight 2021-09-19 00:00:00 171.8 [lb_av] [facility] BP Diastolic 2021-08-22 00:00:00 84 mm[Hg] [facility] Height 2021-08-22 00:00:00 64 [in_i] [facility] BMI (Body Mass Index) 2021-08-22 00:00:00 29.6 kg/m2 [facility] BP Systolic 2021-08-22 00:00:00 124 mm[Hg] [facility] Body Weight 2021-08-22 00:00:00 172.6 [lb_av] [facility] BMI (Body Mass Index) 2021-08-01 00:00:00 29.9 kg/m2 [facility] BP Systolic 2021-08-01 00:00:00 119 mm[Hg] [facility] Body Weight 2021-08-01 00:00:00 174.4 [lb_av] [facility] BP Diastolic 2021-08-01 00:00:00 79 mm[Hg] [facility] Height 2021-08-01 00:00:00 64 [in_i] [facility] Height 2020-10-29 00:00:00 64 [in_i] [facility] BMI (Body Mass Index) 2020-10-29 00:00:00 29.9 kg/m2 [facility] Body Weight 2020-10-29 00:00:00 2784 [oz_av] [facility] BP Diastolic 2020-04-17 00:00:00 74 mm[Hg] [facility] Height 2020-04-17 00:00:00 64 [in_i] [facility] BP Systolic 2020-04-17 00:00:00 121 mm[Hg] [facility] BP Diastolic 2020-03-21 00:00:00 85 mm[Hg] [facility] Height 2020-03-21 00:00:00 64 [in_i] [facility] BMI (Body Mass Index) 2020-03-21 00:00:00 29.9 kg/m2 [facility] BP Systolic 2020-03-21 00:00:00 122 mm[Hg] [facility] Body Weight 2020-03-21 00:00:00 174 [lb_av] [facility] BP Diastolic 2020-03-09 00:00:00 87 mm[Hg] [facility] Height 2020-03-09 00:00:00 64 [in_i] [facility] BMI (Body Mass Index) 2020-03-09 00:00:00 29.7 kg/m2 [facility] BP Systolic 2020-03-09 00:00:00 117 mm[Hg] [facility] Body Weight 2020-03-09 00:00:00 173 [lb_av] [facility] BP Diastolic 2020-01-19 00:00:00 74 mm[Hg] [facility] Height 2020-01-19 00:00:00 64 [in_i] [facility] BMI (Body Mass Index) 2020-01-19 00:00:00 29 kg/m2 [facility] BP Systolic 2020-01-19 00:00:00 110 mm[Hg] [facility] Body Weight 2020-01-19 00:00:00 169.1 [lb_av] [facility] BP Diastolic 2020-01-05 00:00:00 84 mm[Hg] [facility] Height 2020-01-05 00:00:00 64 [in_i] [facility] BMI (Body Mass Index) 2020-01-05 00:00:00 28.8 kg/m2 [facility] BP Systolic 2020-01-05 00:00:00 120 mm[Hg] [facility] Body Weight 2020-01-05 00:00:00 168 [lb_av] [facility] BP Diastolic 2019-12-08 00:00:00 62 mm[Hg] [facility] Height 2019-12-08 00:00:00 64 [in_i] [facility] BMI (Body Mass Index) 2019-12-08 00:00:00 28.7 kg/m2 [facility] BP Systolic 2019-12-08 00:00:00 108 mm[Hg] [facility] Body Weight 2019-12-08 00:00:00 167 [lb_av] [facility] Height Measured 2024-09-13 14:07:00 63.07 inches Bandar F Rodolfo Body Temperature 2024-09-13 14:07:00 97.80 degrees Bandar F Rodolfo Heart Rate 2024-09-13 14:07:00 76.00 /min Raven en F Rodolfo Respiratory Rate 2024-09-13 14:07:00 18.00 /min Bandar F Rodolfo BP Systolic 2024-09-13 14:07:00 122 mm[Hg] Step hen F Rodolfo BP Diastolic 2024-09-13 14:07:00 79 mm[Hg] Henok phen F Rodolfo Weight Measured 2024-09-13 14:07:00 180.80 pounds Bandar F Rodolfo Procedures Procedure Date / Time Performed Performing Clinician Source XR HAND 3+ VIEWS LEFT 2025-02-19 14:10[facility]ESS [facility] 2022-02-18 00:00:00 [facility] non-stress test 2022-02-13 00:00:00 [facility] US, obstetric, limited 2022-02-06 00:00:00 [facility] US, obstetric, limited 2022-01-09 00:00:00 [facility] ULTRASOUND REPEAT 2021-12-12 00:00:00 [facility] ULTRASOUND, UTERUS REAL TIME WITH IMAGE DOC, AND MATERNAL EVAL PLUS DETAILED ANATOMIC EXAMINATION, TRANSABDOMINAL APPROACH; SINGLE OR FIRST GESTATION 2021-09-19 00:00:00 [facility] US, obstetric, limited 2021-09-19 00:00:00 [facility] US, obstetric, limited 2021-08-22 00:00:00 [facility] US, obstetric, limited 2021-08-01 00:00:00 [facility] US, obstetric, limited 2020-03-09 00:00:00 [facility] ULTRASOUND REPEAT 2020-01-05 00:00:00 [facility] ULTRASOUND, UTERUS REAL TIME WITH IMAGE DOC, AND MATERNAL EVAL PLUS DETAILED ANATOMIC EXAMINATION, TRANSABDOMINAL APPROACH; SINGLE OR FIRST GESTATION 2019-12-08 00:00:00 [facility] Removal of Fallopian Tube 2018-04-29 00:00:00 [facility] Plan of Care Planned Activity Planned Date Details Comments Source Diagnostic Test Pending 2023-04-03 00:00:00 test, urine [code = test, urine] [facility] Instructions [facility] Encounters Start Date/Time End Date/Time Encounter Type Admission Type Attending Clinicians Care Facility Care Department Encounter ID Source 2025-02-19 12:41:00 2025-02-19 19:33:00 Emergency Emergency MYRA BRODY RYAN [facility] General Medicine [id number] [facility] 2025-02-19 12:41:00 2025-02-19 19:33:00 Emergency Brice Ventura Ryan Drey [facility] [id number] Katerine Shaver 2025-02-19 13:24:02 2025-02-19 13:24:02 Outpatient [facility] [id number] [facility] 2024-09-13 13:59:29 2024-09-13 13:59:29 Outpatient [facility] [id number] Bandar Reynolds 2024-09-13 00:00:00 2024-09-13 00:00:00 Outpatient Visit [id number] Bandar Reynolds 2023-04-03 00:00:00 2023-04-03 00:00:00 Priyanka Perez [facility]: [address], [address], [place] [address] , Ph. [phone] MMG [facility] [id number] [facility] 2023-03-26 10:09:00 2023-03-26 11:54:00 Emergency ER MARCIAL LOZANO [facility] [id number] [facility] 2023-01-13 00:00:00 2023-01-13 00:00:00 [facility] [address], [address], [place] [address] , Ph. [phone] G [facility] [id number] [facility] 2022-06-11 14:30:00 2022-06-11 16:26:00 Emergency ER MARCIAL LOZANO [facility] [id number] [facility] 2022-05-21 02:40:00 2022-05-21 02:40:00 Outpatient BHAVNA_MELI YADIRA [facility] [id number] [facility] 2022-04-04 00:00:00 2022-04-04 00:00:00 Outpatient G_Pappas [facility] [id number] [facility] 2022-04-04 00:00:00 2022-04-04 00:00:00 Outpatient G_Pappas [facility]G [id number] [facility] 2022-04-04 00:00:00 2022-04-04 00:00:00 Outpatient G_Pappas MM[facility] MMG [id number] [facility] 2022-04-04 00:00:00 2022-04-04 00:00:00 Outpatient G_Pappas MMG MMG [id number] [facility] 2022-02-26 01:51:00 2022-02-26 01:51:00 Outpatient G_Pappas MM[facility] MMG [id number] [facility] 2022-02-20 13:55:00 2022-02-21 16:20:00 Inpatient ER SONNY LEIJA [facility] [id number] [facility] 2022-02-18 00:00:00 2022-02-18 00:00:00 Sonny Leija MD: [address] [address] , Ph. [phone] G_Pappas [facility] [id number] 0412 [facility] 2022-02-13 00:00:00 2022-02-13 00:00:00 Sonny Leija MD: [address] [facility] [address] [facility] [address] [place] [address] , Ph. [phone] G_Pappas [facility] [id number] [facility] 2022-02-06 00:00:00 2022-02-06 00:00:00 Sonny Leija MD: [address] [facility] [address] [place] [address] , Ph. [phone] G_Pappas [facility] [id number] 0331 [facility] 2022-01-29 00:00:00 2022-01-29 00:00:00 CHERYLE ByrneP-BC: [address], [place] [address] , Ph. [phone] G_Pappas [facility] [id number] [facility] 2022-01-09 00:00:00 2022-01-09 00:00:00 Priyanka Perez [facility]: [address] [address] , Ph. [phone] [facility] [id number] 0303 [facility] 2021-12-12 10:45:00 2021-12-12 10:45:00 Outpatient SONNY DAVILA [facility] [id number] [facility] 2021-12-12 00:00:00 2021-12-12 00:00:00 Sonny Leija MD: [address] [address] , Ph. [phone] G_Pappas [facility] [id number] 0203 [facility] 2021-11-21 00:00:00 2021-11-21 00:00:00 CHERYLE ByrneBC: [address] [address] , Ph. [phone] G_Pappas G [facility] [id number] 0113 [facility] 2021-10-18 10:48:00 2021-10-18 10:48:00 Outpatient SONNY DAVILA [facility] [id number] [facility] 2021-10-18 00:00:00 2021-10-18 00:00:00 Judith Canales MD: [address], [place] [address] , Ph. [phone] G_Pappas [facility]10 [facility] 2021-09-19 00:00:00 2021-09-19 00:00:00 Sonny Leija MD: [address], [place] [address] , Ph. [phone] G_Pappas [facility] 1111 [facility] 2021-08-22 00:00:00 2021-08-22 00:00:00 Sonny Leija MD: [address], [place] [address] , Ph. [phone] G_Pappas [facility] 1014 [facility] 2021-08-01 16:32:00 2021-08-01 16:32:00 Outpatient SONNY DAVILA [facility] [id number] [facility] 2021-08-01 00:00:00 2021-08-01 00:00:00 Sonny Leija MD: [address], [place] [address] , Ph. [phone] G_Pappas [facility] 0923 [facility] 2020-11-13 10:39:00 2020-11-13 10:39:00 Outpatient Melanie [facility] [id number] [facility] 2020-10-29 00:00:00 2020-10-29 00:00:00 Erin Navarro NP: [address], [place] [address] , Ph. Melanie [facility] 1220 [facility] 2020-09-26 02:21:00 2020-09-26 02:21:00 Outpatient G[facility]appas [facility] [id number] 2020-04-17 00:00:00 2020-04-17 00:00:00 Sonny Leija MD: [address], [place] [address] , Ph. [phone] G_Pappas [facility] [place] [facility]609 [facility] 2020-04-10 10:56:00 2020-04-10 10:56:00 Outpatient G_Pappas MMG MMG [id number] [facility] 2020-03-25 07:40:00 2020-03-27 07:35:00 Inpatient ER SONNY LEIJA [facility] [id number] [facility] 2020-03-27 04:25:00 2020-03-27 04:25:00 Outpatient G_Pappas MMG MMG [id number] [facility] 2020-03-21 13:37:00 2020-03-21 13:37:00 Outpatient JUDITH ROBBINS [facility] [id number] [facility] 2020-03-21 00:00:00 2020-03-21 00:00:00 Judith Canales MD: [address], [place] [address] , Ph. [phone] G_Pappas [facility] [place] [facility]13 [facility] 2020-03-12 12:13:00 2020-03-12 12:13:00 Outpatient G_Pappas MMG MMG [id number] [facility] 2020-03-09 00:00:00 2020-03-09 00:00:00 Rajwinder Wolf [facility] HOSPITAL: [address], [place] [address] , Ph. [phone] G_Pappas [facility] [place] [id number] 0501 [facility] 2020-02-27 08:52:00 2020-02-27 08:52:00 Outpatient G_[facility]appas [facility] [id number] [id number] [facility] 2020-02-24 00:00:00 2020-02-24 00:00:00 BIGG [place]: [address], [place] [address] , Ph. [phone] [facility] [id number] 0417 [facility] 2020-02-13 11:22:00 2020-02-13 11:22:00 Outpatient G_Pappas [facility]G [id number] [facility] 2020-02-12 07:18:00 2020-02-12 07:18:00 Outpatient G_Pappas [facility] [id number] 0405 [facility] 2020-02-10 00:00:00 2020-02-10 00:00:00 Judith Canales MD: [address] [place] [address] , Ph. [phone] [facility] [id number] 0403 [facility] 2020-02-03 09:47:00 2020-02-03 09:47:00 Outpatient G_Pappas [facility]G [id number] [facility] 2020-02-02 10:58:00 2020-02-02 10:58:00 Outpatient G_Pappas [facility] [id number] 0326 [facility] 2020-01-24 13:09:00 2020-01-24 13:09:00 Outpatient JUDITH ROBBINS [facility] [id number] [facility] 2020-01-22 08:21:00 2020-01-22 08:21:00 Outpatient G_Pappas [facility]G [id number] 0315 [facility] 2020-01-19 00:00:00 2020-01-19 00:00:00 Judith Canales MD: [address], [place] [address] , Ph. [phone] G_Pappas MM[facility] [place] - OBGYN [id number] 0312 [facility] 2020-01-12 12:32:00 2020-01-12 12:32:00 Outpatient RAJWINDER FLEMING [facility] [id number] [facility] 2020-01-09 05:44:00 2020-01-09 05:44:00 Outpatient G_Pappas [facility]G MMG [id number] [facility] 2020-01-08 09:38:00 2020-01-08 09:38:00 Outpatient G_Pappas [facility]G MMG [id number] [facility] 2020-01-05 00:00:00 2020-01-05 00:00:00 BIGG [place]: [address], [place] [address] , Ph. [phone] G_Pappas [facility] [place] - OBGYN [id number] 0227 [facility] 2019-12-24 11:07:00 2019-12-24 11:07:00 Outpatient G_Pappas [facility] [id number] [id number] [facility] 2019-12-09 11:02:00 2019-12-09 11:02:00 Outpatient G_Pappas [facility]G [id number] 0131 [facility] 2019-12-08 15:10:00 2019-12-08 15:10:00 Outpatient JUDITH ROBBINS [facility] [id number] [facility] 2019-12-08 00:00:00 2019-12-08 00:00:00 Judith Canales MD: [address], [place] [address] , Ph. [phone] [facility]as [facility] [id number] 0130 [facility] 2019-11-14 04:23:00 2019-11-14 04:23:00 Outpatient G_Pappas [facility] [id number] [facility] 2018-04-28 16:19:00 2018-04-28 16:19:00 Outpatient ER SONNY LEIJA [facility] [id number] [facility] 2017-04-18 00:53:00 2017-04-19 09:50:00 Inpatient ER SONNY LEIJA [facility] [id number] [facility] 2017-03-25 14:17:00 2017-03-25 14:17:00 Outpatient BRUNILDA HITCHCOCK [facility] [id number] [facility] 2017-01-29 08:42:00 2017-01-29 08:42:00 Outpatient JUDITH ROBBINS [facility] [id number] [facility] 2016-09-29 15:38:00 2016-09-29 15:38:00 Outpatient BRUNILDA HITCHCOCK [facility] [id number] [facility] 2006-03-13 08:37:00 2006-03-13 08:37:00 Outpatient MARLYS COATESLeila [facility] [id number] [facility] 2004-12-28 21:11:00 2004-12-29 02:08:00 Emergency ER YAN FRIAS [facility] [id number] [facility] Results Test Description Test Time Test Comments Results Result Co mments Source [facility] [id number] 13:49:50* Test Item Value Reference Range Interpretation Comme nts Test (test code = Test) negative [facility]inal[facility] macro (dipstick) panel - [id number] 15:51:31* Test Item Value Reference Range Interpretation Comme nts Leukocytes (test code = Leukocytes) Small Nitrite (test code = Nitrite) negative Urobilinogen (test code = Urobilinogen) .2 Protein (test code = Protein) Negative pH (test code = pH) 6.5 Blood (test code = Blood) Negative Specific Tsaile (test code = Specific Tsaile) 1.030 Ketone (test code = Ketone) Trace Bilirubin (test code = Bilirubin) Negative Glucose (test code = Glucose) Negative Appearance (test code = Appearance) Clear Color (test code = Color) Yellow [facility] GroupUrinalysis macro (dipstick) panel - [id number] 09:46:31* Test Item Value Reference Range Interpretation Comme nts Leukocytes (test code = Leukocytes) Small Nitrite (test code = Nitrite) negative Urobilinogen (test code = Urobilinogen) .2 Protein (test code = Protein) Negative pH (test code = pH) 7.0 Blood (test code = Blood) Negative Specific Tsaile (test code = Specific Tsaile) 1.025 Ketone (test code = Ketone) Negative Bilirubin (test code = Bilirubin) Negative Glucose (test code = Glucose) Negative Appearance (test code = Appearance) Clear Color (test code = Color) Yellow [facility] Groupculture, vaginal/rectal, streptococcus group [id number] 00:00:00* Test Item Value Reference Range Interpretation Comme nts group B strep (test code = g roup B strep) negative [facility]Ur[facility] macro (dipstick) panel - [id number] 10:29:24* Test Item Value Reference Range Interpretation Comme nts Leukocytes (test code = Leukocytes) Small Nitrite (test code = Nitrite) negative Urobilinogen (test code = Urobilinogen) .2 Protein (test code = Protein) Negative pH (test code = pH) 7.0 Blood (test code = Blood) Negative Specific Tsaile (test code = Specific Tsaile) 1.020 Ketone (test code = Ketone) Negative Bilirubin (test code = Bilirubin) Negative Glucose (test code = Glucose) Negative Appearance (test code = Appearance) Clear Color (test code = Color) Yellow [facility] GroupUrinalysis macro (dipstick) panel - [id number] 09:51:42* Test Item Value Reference Range Interpretation Comme nts Leukocytes (test code = Leukocytes) Small Nitrite (test code = Nitrite) negative Urobilinogen (test code = Urobilinogen) .2 Protein (test code = Protein) Negative pH (test code = pH) 7.0 Blood (test code = Blood) Hemolyzed: Trace Specific Tsaile (test code = Specific Tsaile) 1.025 Ketone (test code = Ketone) Negative Bilirubin (test code = Bilirubin) Negative Glucose (test code = Glucose) Negative Appearance (test code = Appearance) Slightly Cloudy Color (test code = Color) Yellow [facility] HospitalGlucose [Mass/volume] in Serum or Plasma --1 hour post dose [id number] 11:42:00* Test Item Value Reference Range Interpretation Comme nts Results (test code = Results) 138 [facility] HospitalUrinalysis macro (dipstick) panel - [id number] 09:55:12* Test Item Value Reference Range Interpretation Comme nts Leukocytes (test code = Leukocytes) Small Nitrite (test code = Nitrite) negative Urobilinogen (test code = Urobilinogen) .2 Protein (test code = Protein) Negative pH (test code = pH) 7.0 Blood (test code = Blood) Negative Specific Tsaile (test code = Specific Tsaile) 1.020 Ketone (test code = Ketone) Negative Bilirubin (test code = Bilirubin) Negative Glucose (test code = Glucose) Negative Appearance (test code = Appearance) Clear Color (test code = Color) Yellow [facility] HospitalCB W Auto Differential panel - [id number] 09:49:00 * Test Item Value Reference Range Interpretation Comme nts white blood count (test code = white blood count) 9.7 K/uL 4.0-11.5 red blood count (test code = red blood count) 4.02 M/uL 3.80-5.20 hemoglobin (test code = hemoglobin) 10.9 g/dL 10.5-15.7 hematocrit (test code = hematocrit) 35.5 % 34.0-50.0 MCV [Entitic volume] (test c ode = 09024-2) 88.3 fL 86.0-100.0 mean corpuscular hemoglobin (test [...] neutrophils/100 leukocytes in Blood (test code = 79358-1) 74.5 % 44.4-80.1 Immature granulocytes [#/vol ume] in Blood (test code = 41502-5) 0.09 K/uL 0.00-0.03 H lymphocyte% (test code = lymphocyte%) 16.8 % 10.0-50.0 mono % (test code = mono %) 6.8 % 3.6-12.0 eos % (test code = eos %) 0.7 % 0.0-5.4 Basophils/100 leukocytes in Specimen (test code = 82639-2) 0.3 % 0.1-1.2 Band form neutrophils [#/vol ume] in Blood (test code = 37486-8) 7.20 K/uL 1.56-6.13 H Lymphocytes [#/volume] in Sp ecimen by Automated count (test code = 33235-1) 1.63 K/uL 1.18-3.74 mono # (test code = mono #) 0.66 K/uL 0.24-0.86 eos # (test code = eos #) 0.07 K/uL 0.04-0.36 basophil # (test code = baso tristan #) 0.03 K/uL 0.01-0.08 NRBC% (test code = NRBC%) 0 /100 WBC 0-0.2 NRBC# (test code = NRBC#) 0 K/uL [facility] Group[facility] antibody screen [Presence] in Serum or Plasma 2021-12-12 09:49:00* Test Item Value Reference Range Interpretation Comme nts Blood group antibody screen [Presence] in Serum or Plasma (test code = 890-4) negative [facility] GroupDifferential panel, method unspecified - [id number] 00:00:00NeutrophilsBandLymphocyteAtypical LymphMonocyteEosinophilBasophilMetamyelocyteMyelocytePromyelocyteBlastsNucleated Red Blood CellAbs Neutrophil Count (Man)Abs Lymph Count (Man)Abs Monocyte Count (Man)Abs Eosinophil Count (Man)Abs Basophil Count (Man)Platelet EstimatePlatelet MorphologyPoikilocytosisAnisocytosisMacrocytosisTarget CellsToxic GranulationMatasaint mary's hospital Medical GroupHIV 1+2 Ab [Presence] in Serum 2021-12-12 00:00:00HIV P24 AgHIV-1/2 AbMaFroedtert West [facility] Hospital GroupReagin Ab [Presence] in Serum by [id number] 00:00:00* Test Item Value Reference Range Interpretation Comme nts Reagin Ab [Presence] in Seru m by RPR (test code = 40768-8) nonreactive nonreactive [facility] HospitalUrinalysis macro (dipstick) panel - [id number] 09:49:38* Test Item Value Reference Range Interpretation Comme nts Leukocytes (test code = Leukocytes) Moderate Nitrite (test code = Nitrite) negative Urobilinogen (test code = Urobilinogen) .2 Protein (test code = Protein) Trace pH (test code = pH) 7.0 Blood (test code = Blood) Negative Specific Tsaile (test code = Specific Tsaile) 1.020 Ketone (test code = Ketone) Negative Bilirubin (test code = Bilirubin) Negative Glucose (test code = Glucose) Negative Appearance (test code = Appearance) Clear Color (test code = Color) Yellow [facility] HospitalUrinalysis macro (dipstick) panel - [id number] 11:50:25* Test Item Value Reference Range Interpretation Comme nts Leukocytes (test code = Leukocytes) Small Nitrite (test code = Nitrite) negative Urobilinogen (test code = Urobilinogen) .2 Protein (test code = Protein) Negative pH (test code = pH) 7.0 Blood (test code = Blood) Hemolyzed: Trace Specific Tsaile (test code = Specific Tsaile) 1.025 Ketone (test code = Ketone) Negative Bilirubin (test code = Bilirubin) Negative Glucose (test code = Glucose) Negative Appearance (test code = Appearance) Clear Color (test code = Color) Yellow [facility] HospitalUrinalysis macro (dipstick) panel - [id number] 13:56:26* Test Item Value Reference Range Interpretation Comme nts Leukocytes (test code = Leukocytes) Trace Nitrite (test code = Nitrite) negative Urobilinogen (test code = Urobilinogen) .2 Protein (test code = Protein) Negative pH (test code = pH) 6.5 Blood (test code = Blood) Negative Specific Tsaile (test code = Specific Tsaile) 1.030 Ketone (test code = Ketone) Small Bilirubin (test code = Bilirubin) Negative Glucose (test code = Glucose) Negative Appearance (test code = Appearance) Slightly Cloudy Color (test code = Color) Yellow [facility] HospitalUrinalysis macro (dipstick) panel - [id number] 09:56:53* Test Item Value Reference Range Interpretation Comme nts Leukocytes (test code = Leukocytes) Small Nitrite (test code = Nitrite) negative Urobilinogen (test code = Urobilinogen) .2 Protein (test code = Protein) Negative pH (test code = pH) 7.0 Blood (test code = Blood) Negative Specific Tsaile (test code = Specific Tsaile) 1.025 Ketone (test code = Ketone) Negative Bilirubin (test code = Bilirubin) Negative Glucose (test code = Glucose) Negative Appearance (test code = Appearance) Slightly Cloudy Color (test code = Color) Yellow [facility] HospitalChromosome 13+18+21+X+Y aneuploidy in Blood by Molecular genetics method [id number] 00:00:00* Test Item Value Reference Range Interpretation [...] code = trisomy 21 age-based risk text) 1/,068 (0.09%) trisomy 21 risk score text (test [...] footnotes (test code = footnotes) see notes [facility] GroupGenetic screen in Unspecified specimen by Molecular genetics method [id number] 00:00:00* Test Item Value Reference Range Interpretation [...] = polycystic kidney disease, autosomal recessive) negative ssyfd-neorq-rxybh syndrome ( test code = soxnq-utvjf-ecdbo syndrome) negative spinal muscular atrophy (nancy t code = spinal muscular atrophy) negative tara-sachs disease (test code = tara-sachs disease) negative panel notes (test code = joy el notes) see notes report note (test code = rep ort note) see notes footnotes (test code = footnotes) see notes [facility] Grouppap, LB + reflex to HR HPV if [id number] 00:00:00* Test Item Value Reference Range Interpretation Comme nts TP reflex HPV ASCUS (test co de = TP reflex HPV ASCUS) normal [facility] GroupABO & Rh group [Type] in [id number] 03:38:00* Test Item Value Reference Range Interpretation Comme nts Rh [Type] in Blood (test cod e = 94462-4) 4+ ABO and Rh group panel - Blo od (test code = 35192-5) O positive [facility] HospitalBlood group antibody screen [Presence] in Serum or Plasma 2021-08-01 03:38:00* Test Item Value Reference Range Interpretation Comme nts Blood group antibody screen [Presence] in Serum or Plasma (test code = 890-4) negative [facility] GroupHIV 1+2 Ab [Presence] in [id number] 03:38:00HIV P24 AgHIV-1/2 AbMataVermont Psychiatric Care Hospital GroupReagin Ab [Presence] in Serum by RPR 2021-08-01 03:38:00* Test Item Value Reference Range Interpretation Comme nts Reagin Ab [Presence] in Seru m by RPR (test code = 15778-9) nonreactive nonreactive [facility] HospitalHepatitis B virus surface Ag [Presence] in Serum 2021-08-01 03:30:00* Test Item Value Reference Range Interpretation Comme nts .hepatitis B surface antigen (test code = .hepatitis B surface antigen) negative negative [facility] HospitalCBC W Auto Differential panel - [id number] 03:24:00 * Test Item Value Reference Range Interpretation Comme nts white blood count (test code = white blood count) 10.4 K/uL 4.0-11.5 red blood count (test code = red blood count) 4.65 M/uL 3.80-5.20 hemoglobin (test code = hemoglobin) 12.6 g/dL 10.5-15.7 hematocrit (test code = hematocrit) 39.7 % 34.0-50.0 MCV [Entitic volume] (test c ode = 66728-7) 85.4 fL 86-100 L mean corpuscular hemoglobin [...] neutrophils/100 leukocytes in Blood (test code = 75993-5) 74.1 % 44.4-80.1 Immature granulocytes [#/vol ume] in Blood (test code = 34426-2) 0.0 K/uL 0.0-0.03 lymphocyte% (test code = lymphocyte%) 17.7 % 10.0-50.0 mono % (test code = mono %) 6.8 % 3.6-12.0 eos % (test code = eos %) 0.8 % 0.0-5.4 Basophils/100 leukocytes in Unspecified specimen (test code = 49139-0) 0.2 % 0.1-1.2 Band form neutrophils [#/vol ume] in Blood (test code = 65114-0) 7.74 K/uL 1.56-6.13 H Lymphocytes [#/volume] in Unspecified specimen by Automated count (test code = 06521-8) 1.9 K/uL 1.18-3.74 mono # (test code = mono #) 0.71 K/uL 0.24-0.86 eos # (test code = eos #) 0.08 K/uL 0.04-0.36 basophil # (test code = baso tristan #) 0.02 K/uL 0.01-0.08 NRBC% (test code = NRBC%) 0 /100 WBC 0-0.2 NRBC# (test code = NRBC#) 0 K/uL [facility]Ch[facility]ydia trachomatis+Neisseria gonorrhoeae DNA [Presence] in Cervix by URBANO with probe [id number] 03:24:00* Test Item Value Reference Range Interpretation Comme nts Chlamydia sp Ag [Presence] i n Unspecified specimen (test code = 84038-4) CT not detected ibr2204 (test code = raj3073) NG not detected [facility] HospitalBacteria identified in Urine by [id number] 03:24:00* Test Item Value Reference Range Interpretation Comme nts Bacteria identified in Urine by Culture (test code = 630-4) no growth after 2 [facility] (COVID-19) Ag [Presence] in Respiratory specimen by Rapid kiunccojgqm5547-09-24 15:56:00* Test Item Value Reference Range Interpretation Comme nts SARS-CoV - 2 (test code = SA RS-CoV - 2) positive [facility] HospitalUrinalysis macro (dipstick) panel - [id number] 10:40:36* Test Item Value Reference Range Interpretation Comme nts Leukocytes (test code = Leukocytes) Large Nitrite (test code = Nitrite) negative Urobilinogen (test code = Urobilinogen) 1 Protein (test code = Protein) Negative pH (test code = pH) 7.0 Blood (test code = Blood) Large Specific Tsaile (test code = Specific Tsaile) 1.025 Ketone (test code = Ketone) Negative Bilirubin (test code = Bilirubin) Negative Glucose (test code = Glucose) Negative Appearance (test code = Appearance) Clear Color (test code = Color) Yellow [facility] coronavirus 2 RNA [Presence] in Respiratory specimen by URBANO with probe [id number] 14:28:00* Test Item Value Reference Range Interpretation Comme nts covid-19 test (test code = c ovid-19 test) negative [facility]CBC W Auto Differential panel - [id number] 06:20:00 * Test Item Value Reference Range Interpretation Comme nts white blood count (test code = white blood count) 16.1 K/uL 4.0-11.5 red blood count (test code = red blood count) 3.65 M/uL 3.80-5.20 L hemoglobin (test code = hemoglobin) 9.0 g/dL 10.5-15.7 L hematocrit (test code = hematocrit) 29.4 % 34.0-50.0 L MCV [Entitic volume] (test c ode = 18701-1) 80.5 fL 86-100 L mean corpuscular hemoglobin [...] Blood by Automated count (test code = 20384-7) 11.8 % 0-8 H mean platelet volume (test c ode = mean platelet volume) 13.3 fL 9.4-12.6 H Segmented neutrophils/100 leukocytes in Blood (test code = 70488-1) 71.4 % 44.4-80.1 Immature granulocytes [#/vol ume] in Blood (test code = 09474-3) 0.2 K/uL 0.0-0.03 H lymphocyte% (test code = lymphocyte%) 17.3 % 10.0-50.0 mono % (test code = mono %) 9.6 % 3.6-12.0 eos % (test code = eos %) 0.2 % 0.0-5.4 Basophils/100 leukocytes in Unspecified specimen (test code = 29423-7) 0.2 % 0.1-1.2 Band form neutrophils [#/vol ume] in Blood (test code = 35745-3) 11.49 K/uL 1.56-6.13 H Lymphocytes [#/volume] in Unspecified specimen by Automated count (test code = 87958-5) 2.8 K/uL 1.18-3.74 mono # (test code = mono #) 1.54 K/uL 0.24-0.86 H eos # (test code = eos #) 0.04 K/uL 0.04-0.36 basophil # (test code = baso tristan #) 0.03 K/uL 0.01-0.08 NRBC% (test code = NRBC%) 0 /100 WBC 0-0.2 NRBC# (test code = NRBC#) 0 K/uL [facility] W Auto Differential panel - [id number] 05:56:00 * Test Item Value Reference Range Interpretation Comme nts white blood count (test code = white blood count) 11.8 K/uL 4.0-11.5 H red blood count (test code = red blood count) 3.82 M/uL 3.80-5.20 hemoglobin (test code = hemoglobin) 9.5 g/dL 10.5-15.7 L hematocrit (test code = hematocrit) 31.4 % 34.0-50.0 L MCV [Entitic volume] (test c ode = 39316-1) 82.2 fL 86-100 L mean corpuscular hemoglobin [...] neutrophils/100 leukocytes in Blood (test code = 72163-9) 65.0 % 44.4-80.1 Immature granulocytes [#/vol ume] in Blood (test code = 85336-9) 0.2 K/uL 0.0-0.03 H lymphocyte% (test code = lymphocyte%) 23.9 % 10.0-50.0 mono % (test code = mono %) 8.8 % 3.6-12.0 eos % (test code = eos %) 0.7 % 0.0-5.4 Basophils/100 leukocytes in Unspecified specimen (test code = 01481-3) 0.2 % 0.1-1.2 Band form neutrophils [#/vol ume] in Blood (test code = 48166-1) 7.71 K/uL 1.56-6.13 H Lymphocytes [#/volume] in Unspecified specimen by Automated count (test code = 51298-7) 2.8 K/uL 1.18-3.74 mono # (test code = mono #) 1.04 K/uL 0.24-0.86 H eos # (test code = eos #) 0.08 K/uL 0.04-0.36 basophil # (test code = baso tristan #) 0.02 K/uL 0.01-0.08 NRBC% (test code = NRBC%) 0 /100 WBC 0-0.2 NRBC# (test code = NRBC#) 0 K/uL [facility] GroupBlood type and Indirect antibody screen panel - Blood 2020-03-25 05:56:00* Test Item Value Reference Range Interpretation Comme nts Rh [Type] in Blood (test cod e = 92903-8) 4+ ABO and Rh group panel - Blo od (test code = 75842-3) O positive [facility] GroupReagin Ab [Presence] in Serum by [id number] 05:56:00* Test Item Value Reference Range Interpretation Comme nts Reagin Ab [Presence] in Seru m by RPR (test code = 49245-5) nonreactive nonreactive [facility] GroupHepatitis B virus surface Ag [Presence] in Serum 2020-03-25 05:56:00* Test Item Value Reference Range Interpretation Comme nts .hepatitis B surface antigen (test code = .hepatitis B surface antigen) negative negative [facility] QlpwqNbkls-9-Ignaytrsopnqy.placental [Presence] in Vaginal [id number] 05:29:00* Test Item Value Reference Range Interpretation Comme nts Vbjkd-8-Yqevqorngymsz.placen moris [Presence] in Vaginal fluid (test code = 47405-1) positive neg [facility] GroupChlamydia trachomatis+Neisseria gonorrhoeae DNA [Presence] in Unspecified specimen by URBANO with probe [id number] 00:00:00* Test Item Value Reference Range Interpretation [...] to antibiotic resistance by molecular analysis)) negative [facility] GroupStreptococcus agalactiae [Presence] in Unspecified specimen by Organism specific mxjmmdx6715-74-03 00:00:00* Test Item Value Reference Range Interpretation Comme nts group B streptococcus (gbs) by real-time PCR (test code = group B streptococcus (gbs) by real-time PCR) positive A group B streptococcus (gbs) antibiotic resistance by PCR (test code = group B streptococcus (gbs) antibiotic resistance by PCR) positive A [facility] GroupUrinalysis macro (dipstick) panel - [id number] 11:05:08* Test Item Value Reference Range Interpretation Comme nts Leukocytes (test code = Leukocytes) Large Nitrite (test code = Nitrite) negative Urobilinogen (test code = Urobilinogen) .2 Protein (test code = Protein) Trace pH (test code = pH) 7.0 Blood (test code = Blood) Negative Specific Tsaile (test code = Specific Tsaile) 1.025 Ketone (test code = Ketone) Negative Bilirubin (test code = Bilirubin) Negative Glucose (test code = Glucose) Negative Appearance (test code = Appearance) Clear Color (test code = Color) Yellow [facility] GroupUrinalysis macro (dipstick) panel - [id number] 14:06:00* Test Item Value Reference Range Interpretation Comme nts Leukocytes (test code = Leukocytes) Small Nitrite (test code = Nitrite) negative Urobilinogen (test code = Urobilinogen) .2 Protein (test code = Protein) Negative pH (test code = pH) 7.5 Blood (test code = Blood) Negative Specific Tsaile (test code = Specific Tsaile) 1.020 Ketone (test code = Ketone) Negative Bilirubin (test code = Bilirubin) Negative Glucose (test code = Glucose) Negative Appearance (test code = Appearance) Clear Color (test code = Color) Yellow [facility] Groupdifferential panel, [id number] 11:50:00 NeutrophilsBandLymphocyteAtypical LymphMonocyteEosinophilBasophilMetamyelocyteMyelocyteBlastsNucleated Red Blood CellDifferential CommentPlatelet EstimatePlatelet MorphologyHypochromasiaPoikilocytosisAnisocytosisTarget CellsStomatocyteToxic GranulationBurr CellsRouleauToxic Vacuolationneutrophils-Pb lfj-Fjmaxbjnxhib-FUdekyaas bonqdw-Aqwoyabqoh-PLknshkqpkjpUgaituwmkhji comment-P Trace [facility] Differential panel - [id number] 11:50:00 * Test Item Value Reference Range Interpretation Comme nts white blood count (test code = white blood count) 12.7 K/uL 4.0-11.5 H red blood count (test code = red blood count) 4.03 M/uL 3.80-5.20 hemoglobin (test code = hemoglobin) 10.8 g/dL 10.5-15.7 hematocrit (test code = hematocrit) 34.5 % 34.0-50.0 MCV [Entitic volume] (test c ode = 69541-6) 85.6 fL 86-100 L mean corpuscular hemoglobin [...] neutrophils/100 leukocytes in Blood (test code = 59851-3) 74.7 % 44.4-80.1 Immature granulocytes [#/vol ume] in Blood (test code = 55779-1) 0.1 K/uL 0.0-0.03 H lymphocyte% (test code = lymphocyte%) 15.5 % 10.0-50.0 mono % (test code = mono %) 7.9 % 3.6-12.0 eos % (test code = eos %) 0.6 % 0.0-5.4 Basophils/100 leukocytes in Unspecified specimen (test code = 70963-1) 0.2 % 0.1-1.2 Band form neutrophils [#/vol ume] in Blood (test code = 07688-2) 9.51 K/uL 1.56-6.13 H Lymphocytes [#/volume] in Unspecified specimen by Automated count (test code = 35849-6) 2.0 K/uL 1.18-3.74 mono # (test code = mono #) 1.00 K/uL 0.24-0.86 H eos # (test code = eos #) 0.07 K/uL 0.04-0.36 basophil # (test code = baso tristan #) 0.02 K/uL 0.01-0.08 NRBC% (test code = NRBC%) 0 /100 WBC 0-0.2 NRBC# (test code = NRBC#) 0 K/uL [facility] method unspecified - [id number] 11:50:00NeutrophilsBandLymphocyteAtypical LymphMonocyteEosinophilBasophilMetamyelocyteMyelocyteBlastsNucleated Red Blood CellDifferential CommentPlatelet EstimatePlatelet MorphologyHypochromasiaPoikilocytosisAnisocytosisTarget CellsStomatocyteToxic GranulationBurr CellsRouleauToxic Vacuolationneutrophils-Pb vfx-Sghgpvrextkx-ZJrmjzkls lwzmcb-Orfajnltwe-VOczgsxkcufgYbiyoccqoyxq comment-P [facility] screen [Presence] in Serum or Plasma 2020-01-12 11:50:00* Test Item Value Reference Range Interpretation Comme nts Blood group antibody screen [Presence] in Serum or Plasma (test code = 890-4) negative [facility]HIV [facility]+2 Ab [Presence] in [id number] 11:50:00HIV P24 AgHIV-1/2 AbMaFroedtert [facility] Hospital GroupReagin Ab [Presence] in Serum by RPR 2020-01-12 11:50:00RPR ConfirmationMaFroedtert [facility] Grouppap, LB + CT/NG/TV + reflex HR [id number] 00:00:00* Test Item Value Reference Range Interpretation [...] type-detect 3.0 high risk if ASCUS) negative [facility] W Auto Differential panel - [id number] 02:22:00 * Test Item Value Reference Range Interpretation Comme nts white blood count (test code = white blood count) 11.2 K/uL 4.0-11.5 red blood count (test code = red blood count) 4.11 M/uL 3.80-5.20 hemoglobin (test code = hemoglobin) 11.3 g/dL 10.5-15.7 hematocrit (test code = hematocrit) 35.2 % 34.0-50.0 Erythrocyte mean corpuscular volume [Entitic volume] (test code = 50210-7) 85.6 fL 86-100 L mean corpuscular hemoglobin [...] Neutrophils.segmented/100 leukocytes in Blood (test code = 60427-4) 75.5 % 44.4-80.1 Granulocytes Immature [#/vol ume] in Blood (test code = 03283-3) 0.1 K/uL 0.0-0.03 H lymphocyte% (test code = lymphocyte%) 15.0 % 10.0-50.0 mono % (test code = mono %) 8.4 % 3.6-12.0 eos % (test code = eos %) 0.6 % 0.0-5.4 Basophils/100 leukocytes in Unspecified specimen (test code = 92737-1) 0.1 % 0.1-1.2 Neutrophils.band form [#/vol ume] in Blood (test code = 56787-8) 8.42 K/uL 1.56-6.13 H Lymphocytes [#/volume] in Unspecified specimen by Automated count (test code = 31848-8) 1.7 K/uL 1.18-3.74 mono # (test code = mono #) 0.94 K/uL 0.24-0.86 H eos # (test code = eos #) 0.07 K/uL 0.04-0.36 basophil # (test code = baso tristan #) 0.01 K/uL 0.01-0.08 NRBC% (test code = NRBC%) 0 /100 WBC 0-0.2 NRBC# (test code = NRBC#) 0 K/uL [facility] GroupHIV 1+2 Ab [Presence] in [id number] 02:22:00HIV P24 AgHIV-1/2 AbMatagorda Medical GroupHepatitis B virus surface Ag [Presence] in [id number] 02:22:00* Test Item Value Reference Range Interpretation Comme nts .hepatitis B surface antigen (test code = .hepatitis B surface antigen) negative negative [facility] GroupBacteria identified in Urine by [id number] 02:22:00* Test Item Value Reference Range Interpretation Comme nts Bacteria identified in Urine by Culture (test code = 630-4) no growth after 2 days [facility] GroupReagin Ab [Presence] in Serum by [id number] 02:22:00* Test Item Value Reference Range Interpretation Comme nts Reagin Ab [Presence] in Seru m by RPR (test code = 86962-6) nonreactive nonreactive [facility] GroupABO & Rh group [Type] in [id number] 02:19:00* Test Item Value Reference Range Interpretation Comme nts Rh [Type] in Blood (test cod e = 46876-9) 4+ ABO and Rh group panel - Blo od (test code = 59047-8) O positive [facility] GroupBlood group antibody screen [Presence] in Serum or Plasma 2019-12-08 02:19:00* Test Item Value Reference Range Interpretation Comme nts Blood group antibody screen [Presence] in Serum or Plasma (test code = 890-4) negative [facility] Group Notes Date/Time Note Provider Source 2025-02-19 19:33:31 [facility] * [place] Suicide Severity Rating Scale (Screener/Recent Self-Report) Question Answer Date of Assessment Author 1. Wish to be (Past 1 Month) No 02/19/2025 1:38 PM CDT Annamaria Escalante, RN 2. Non-Specific Active Suici rober Thoughts (Past 1 Month) No 02/19/2025 1:38 PM CDT Annamaria Escalante RN 6. Suicidal Behavior (Lifetime) No 1:38 PM CDT Annamaria Escalante, TOBY [id number] 19:33:31 [facility]qxqpaq8342[facility] 19:33:31 Diagnosis Open nondisplaced fracture o f phalanx of left index finger, unspecified phalanx, initial encounter - Primary Proximal phalanx fracture of finger Closed fracture of middle or proximal phalanx or phalanges of hand [facility] DallasYfbrfqp9076-09-17 19:33:31 [facility] [id number] 00:00:00 Bandar Reynolds [facility]
[2025-02-19] MEDS ORDERED: LIDOCAINE 1% 20 ML MDV ONE (21:35)
--- NOTE | 2025-02-19 23:52 | EDPHYS ---
Physician Documentation [facility] Name: Gudelia Ferguson Age: 24 yrs Sex: Female : 2000 Arrival Date: 02/19/2025 Time: 21:08 Bed 10 Private MD: ED Physician Eliecer Almanzar HPI: 02/19 21:17 This 24 yrs old Female presents to ER via Unassigned with complaints of Wound sp4 Check. 02/20 01:19 Patient is a 24-year-old female that was seen this morning for injury to left index dr5 finger. Patient reports that she went to [facility] and did not see hand surgeon. She states that they did not fix her sutures and the wound is still gaping open.. Historical: - Allergies: 02/19 21:38 No Known Allergies; cm10 - Home Meds: 21:38 None [Active]; cm10 - PMHx: 21:38 None; cm10 - Immunization history:: Adult Immunizations up to date, Last tetanus immunization: up to date. - Infectious Disease History:: Denies. - Social history:: Smoking status: Patient denies any tobacco usage or history of. ROS: 02/20 01:19 Constitutional: as per hpi dr5 Exam: 01:19 Constitutional: This is a well developed, well nourished patient who is awake, alert, dr5 and in no acute distress. Head/Face: Normocephalic, atraumatic. Eyes: Pupils equal round and reactive to light, extra-ocular motions intact. Lids and lashes normal. Conjunctiva and sclera are non-icteric and not injected. Cornea within normal limits. Periorbital areas with no swelling, redness, or edema. Neck: Trachea midline, no thyromegaly or masses palpated, and no cervical lymphadenopathy. Supple, full range of motion without nuchal rigidity, or vertebral point tenderness. No Meningismus. Chest/axilla: Normal chest wall appearance and motion. Nontender with no deformity. No lesions are appreciated. Cardiovascular: Regular rate and rhythm with a normal S1 and S2. Normal PMI, no JVD. No pulse deficits. Respiratory: Lungs have equal breath sounds bilaterally, clear to auscultation. No rales, rhonchi or wheezes noted. No increased work of breathing, no retractions or nasal flaring. Abdomen/GI: Soft, non-tender, non-distended Back: No spinal tenderness. No costovertebral tenderness. Full range of motion. Neuro: Awake and alert, GCS 15, oriented to person, place, time, and situation. Cranial nerves II-XII grossly intact. Motor strength 5/5 in all extremities. Sensory grossly intact. Cerebellar exam normal. Normal gait. 01:19 Skin: injury, laceration(s), the wound is approximately 6 cm(s), with a depth of 3 cm(s), of the dorsal aspect of proximal phalanx of left index finger and palmar aspect of proximal phalanx of left index finger, Vital Signs: 02/19 21:36 BP 130 / 92; Pulse 71; Resp 15; Temp 99.1; Pulse Ox 100% ; Weight 81.65 kg; Height 5 cm10 ft. 3 in. ; 02/20 00:19 BP 125 / 79; Pulse 71; Resp 16 S; Pulse Ox 100% on R/A; ha1 02/19 21:36 Body Mass Index 31.89 (81.65 kg, 160.02 cm) cm10 Procedures: 01:19 Splinting: Splint applied to palmar aspect of proximal phalanx of left index finger dr5 using Finger splint. applied by myself. Examined by me, post splint application: neurovascular intact, 2+ distal pulses palpable, brisk capillary refill noted, Patient tolerated well. Laceration: 01:19 Wound Repair of 6cm ( 2.4in ) subcutaneous laceration to palmar aspect of proximal dr5 phalanx of left index finger. Irregularly shaped.. Distal neuro/vascular/tendon intact. Anesthesia: Digital block administered with 2 mls of 1% lidocaine, Local anesthetic administered with 5 mls of 1% lidocaine. Wound prep: Extensive cleansing by me. Skin closed with 13 4-0 Prolene using simple sutures and sterile technique. Skin closed with 2 4-0 Chromic Gut using simple sutures and sterile technique. Dressed with non-adherent dressing. Patient tolerated well. MDM: 02/19 21:26 Medical Screening Exam initiated sp4 02/20 01:19 Differential diagnosis: Fracture, laceration, cellulitis. Data reviewed: vital signs, dr5 nurses notes. I considered the following discharge prescriptions or medication management in the emergency department Medications were administered in the Emergency Department. See MAR. Care significantly affected by the following Social Determinants of Health: Poor access to healthcare and/or lack of insurance, Poor access to transportation, Problems related to employment. Counseling: I had a detailed discussion with the patient and/or guardian regarding the historical points, exam findings, and any diagnostic results supporting the discharge/admit diagnosis, the presence of at least one elevated blood pressure reading (>120/80) during this emergency department visit, the need for outpatient follow up, for definitive care, a hand specialist, to return to the emergency department if symptoms worsen or persist or if there are any questions or concerns that arise at home. ED course: Repaired finger with approximation on left index finger. Splint placed by myself. Recommended patient follow-up with hand surgeon that her main gave or call Dr. Lamonte Samaniego in [place] tomorrow to get appointment tomorrow. Will add Keflex to Augmentin regimen. All questions answered. X-ray report from this morning was printed out and given to patient as well as CD was printed and given to patient. I also printed out Dr. Lamonte Samaniego information for her.. 02/19 23:55 Order name: Finger Splint; Complete Time: 00:21 dr5 Administered Medications: 00:06 Drug: Lidocaine Infiltration (1 %) 20 ml 20 ml Infiltration once; to bedside {Note: cp4 administered by provider.} Volume: 20 ml; Route: Infiltration; 00:18 Follow up: Response: No adverse reaction ha1 00:18 Drug: HYDROcodone-acetaminophen PO 5 mg-325 mg 2 tabs PO once Route: PO; ha1 00:22 Follow up: Response: No adverse reaction; Marked relief of symptoms; Pain is decreased; ha1 RASS: Alert and Calm (0) 00:18 Drug: Ibuprofen PO 800 mg PO once Route: PO; ha1 00:22 Follow up: Response: No adverse reaction; Marked relief of symptoms ha1 Disposition: 23:44 Co-signature as Attending Physician, Eliecer Almanzar MD I agree with the assessment sp4 and plan of care. I reviewed the patient's care provided by the Advanced Practice Provider and agree with the diagnosis and treatment plan. Disposition Summary: 02/19/25 23:51 Discharge Ordered Notes: Location: Home dr5 Condition: Stable dr5 Diagnosis - Laceration without foreign body of left index finger without damage to nail dr5 Followup: dr5 - With: Emergency Department - When: As needed - Reason: Worsening of condition Followup: dr5 - With: Private Physician - When: 1 - 2 days - Reason: Recheck today's complaints, Continuance of care, Re-evaluation by your physician Discharge Instructions: - Discharge Summary Sheet dr5 - Laceration Care, Adult dr5 Forms: - Medication Reconciliation Form dr5 - Antibiotic Education dr5 - Patient Portal Instructions dr5 - Leadership Thank You Letter dr5 Prescriptions: - Cephalexin 500 mg Oral Capsule - take 1 capsule ORAL route every 12 hours for 10 days; 20 capsule; Refills: 0, dr5 Product Selection Permitted Signatures: Doreen Augustine, RN RN ha1 Eliecer Almanzar MD MD sp4 Reyna Bah RN RN cm10 Isidra Flores cp4 Dallas Ward, LORE-C [employer]IO TIME SALESPERSON-Cdr5 Corrections: (The following items were deleted from the chart) 02/19 21:38 21:38 Home Meds: Unable to obtain; cm10 cm10
--- NOTE | 2025-02-19 23:52 | ER ---
[facility]'s Notes [facility] Name: Gudelia Ferguson Age: 24 yrs Sex: Female : 2000 Arrival Date: 02/19/2025 Time: 21:08 Bed 10 Private MD: Diagnosis: Laceration without foreign body of left index finger without damage to nail Presentation: 02/19 21:36 Chief complaint: Patient states: WAS TRANSFERRED TO [facility] TODAY cm10 FOR FINGER INJURY AND IS BACK TO HAVE THE WOUND RE-CHECKED. Coronavirus screen: Client denies travel out of the [place] in the last 14 days. Ebola Screen: Patient denies travel to an Ebola-affected area in the 21 days before illness onset. Initial Sepsis Screen: Does the patient meet any 2 criteria? No. Patient's initial sepsis screen is negative. Does the patient have a suspected source of infection? No. Patient's initial sepsis screen is negative. Risk Assessment: Do you want to hurt yourself or someone else? Patient reports no desire to harm self or others. Onset of symptoms was February 19, 2025. 21:36 Method Of Arrival: Ambulatory cm10 21:36 Acuity: CYNTHIA 4 cm10 Historical: - Allergies: 21:38 No Known Allergies; cm10 - Home Meds: 21:38 None [Active]; cm10 - PMHx: 21:38 None; cm10 - Immunization history:: Adult Immunizations up to date, Last tetanus immunization: up to date. - Infectious Disease History:: Denies. - Social history:: Smoking status: Patient denies any tobacco usage or history of. Screenin:52 [facility] ED Fall Risk Assessment (Adult) History of falling in the last 3 months, cp4 including since admission No falls in past 3 months (0 pts) Confusion or Disorientation No (0 pts) Intoxicated or Sedated No (0 pts) Impaired Gait No (0 pts) Mobility Assist Device Used No (0 pt) Altered Elimination No (0 pt) Score/Fall Risk Level 0 - 2 = Low Risk Oriented to surroundings, Maintained a safe environment, Assessed \T\ reinforced patient's understanding of fall precautions, Hourly rounding (assess needs \T\ fall precautionary measures) done. Abuse screen: Denies threats or abuse. Denies injuries from another. Nutritional screening: No deficits noted. Tuberculosis screening: No symptoms or risk factors identified. Assessment: 21:52 General: Appears in no apparent distress. uncomfortable, Behavior is calm, cooperative, cp4 appropriate for age. Pain: Complains of pain in left index finger Pain does not radiate. Pain currently is 3 out of 10 on a pain scale. Neuro: Level of Consciousness is awake, alert, obeys commands, Oriented to person, place, time, situation. Cardiovascular: Patient's skin is warm and dry. Respiratory: Airway is patent Respiratory effort is even, unlabored. GI: No signs and/or symptoms were reported involving the gastrointestinal system. : No signs and/or symptoms were reported regarding the genitourinary system. EENT: No signs and/or symptoms were reported regarding the EENT system. Derm: No signs and/or symptoms reported regarding the dermatologic system. Musculoskeletal: No signs and/or symptoms reported regarding the musculoskeletal system. Injury Description: Laceration sustained to left index finger is jagged, was sustained 12-24 hours ago. a small amount of bleeding noted at this time. 02/20 00:18 Reassessment: Patient and/or family updated on plan of care and expected duration. Pain ha1 level reassessed. Patient is alert, oriented x 3, equal unlabored respirations, skin warm/dry/pink. Patient states feeling better. Patient states symptoms have improved. Vital Signs: 02/19 21:36 BP 130 / 92; Pulse 71; Resp 15; Temp 99.1; Pulse Ox 100% ; Weight 81.65 kg; Height 5 cm10 ft. 3 in. ; 02/20 00:19 BP 125 / 79; Pulse 71; Resp 16 S; Pulse Ox 100% on R/A; ha1 02/19 21:36 Body Mass Index 31.89 (81.65 kg, 160.02 cm) cm10 ED Course: 02/19 21:11 Patient arrived in ED. im 21:17 Eliecer Almanzar MD is Attending Physician. sp4 21:35 Dallas Ward FNP-C is PHCP. cm10 21:37 Yash Lawrence, RN is Primary Nurse. rg5 21:38 Triage completed. cm10 21:38 Arm band placed on right wrist. Patient placed in an exam room, on a stretcher. cm10 21:52 Isidra Flores is Primary Nurse. cp4 21:52 Bed in low position. Call light in reach. Side rails up X 1. cp4 21:52 Assist provider with laceration repair on left index finger that was between 2.6 to 7.5 cp4 cm using sutures. Set up tray. Performed by Dallas TOURE Dressed with Kerlix, Patient tolerated well. Patient did not have IV access during this emergency room visit. 02/20 00:20 Provided Education on: FOLLOW UPS WITH SPECIALIST . ha1 Administered Medications: 00:06 Drug: Lidocaine Infiltration (1 %) 20 ml 20 ml Infiltration once; to bedside {Note: cp4 administered by provider.} Volume: 20 ml; Route: Infiltration; 00:18 Follow up: Response: No adverse reaction ha1 00:18 Drug: HYDROcodone-acetaminophen PO 5 mg-325 mg 2 tabs PO once Route: PO; ha1 00:22 Follow up: Response: No adverse reaction; Marked relief of symptoms; Pain is decreased; ha1 RASS: Alert and Calm (0) 00:18 Drug: Ibuprofen PO 800 mg PO once Route: PO; ha1 00:22 Follow up: Response: No adverse reaction; Marked relief of symptoms ha1 Medication: 02/19 21:52 VIS not applicable for this client. cp4 Outcome: 23:51 Discharge ordered by . dr5 02/20 00:20 Discharged to home ambulatory, with family, ha1 Condition: stable Discharge instructions given to patient, Instructed on discharge instructions, follow up and referral plans. medication usage, Demonstrated understanding of instructions, follow-up care, medications, Prescriptions given X 1, 00:21 Patient left the ED. ha1 Signatures: Doreen Augustine RN RN ha1 Eliecer Almanzar MD MD sp4 Zaynab Cruz Clarissa, RN RN cm10 Isidra Flores cp4 Yash Lawrence RN RN rg5 Dallas Ward FNP-C FNP-Cdr5 Corrections: (The following items were deleted from the chart) 02/19 21:38 21:38 Home Meds: Unable to obtain; cm10 cm10
[2025-02-20] MEDS ORDERED: IBUPROFEN 400 MG TAB ONE (00:13)
[2025-02-20] MEDS ORDERED: HYDROCODONE/APAP 5/325 MG TAB ONE (00:14)
[2025-02-20 00:37] VITALS: TEMP 99.1; O2SAT 100
[2025-02-20 00:38] VITALS: BP 125/79
== END 2025-02-20 00:21 | disposition home or self-care (01) ==
LOC: ER 21:08
DX: S61.211A Laceration without foreign body of left index finger without damage to nail, initial encounter (principal)
CPT/HCPCS: 12042; 99283; J2003

== ENCOUNTER 2025-03-03 10:05 | Emergency (ER) | payer SELFPAY ==
--- OUTSIDE RECORDS SUMMARY | 2025-03-03 10:09 | XMS REPORT | Continuity of Care Document ---
Author Name Unknown Address [address] [facility] [place] [address] [facility] Address [address] [facility] [place] [address] Care Team Providers Care Hand Crown Pouncer Name Role Phone Pcp, Pcp Primary Care Physician Unavailab Brice Chairez MD Attending Clinician [phone]- [phone] Myra Brody MD Attending Clinician [phone] MYRA BRODY Attending Clinician Unavailable MYRA BRODY Attending Clinician Unavailable MARCIAL LOZANO Attending Clinician Unavailab homa VAZQUEZ Attending Clinician Unavailable Selene_Papvijays Attending Clinician Unavailable SONNY LEIJA Attending Clinician Unavailashley Navarro Attending Clinician Unavailable JUDITH PINTO Attending Clinician UnavailRAJWINDER Gillette Attending Clinician Unavailable BRUNILDA HUGGINS Attending Clinician Unavailable SHAHRIAR EVANS Attending Clinician Unav ailable AYN FRIAS Attending Clinician Unavailable TAYLOR Admitting Clinician Unavailable G_Pappas Admitting Clinician Unavailable SONNY LEIJA Admitting Clinician Unavailabl e Shield Admitting Clinician Unavailable Payers Payer Name Policy Type Policy Number Effective Date Expirati on Date Source [facility] (MEDICAID REPLACEMENT - HMO) [id number] 2019 00:00:00 [place] [facility] [id number] Problems Condition Name Condition Details Condition Category Status Onset Date Resolution Date Last Treatment Date Treating Clinician Comments Source Proximal phalanx fracture of finger Proximal phalanx fracture of finger Disease Active 02-19 00:00: 00 Katerine Shaver Small for gestationa l age fetus Small for Gestationa l Age Fetus Problem Active [facility] History of ectopic History of Ectopic Problem Active [facility] Carrier of alpha thalassemi a Carrier of Alpha Thalassemi a Problem Active [facility] Social History Social Habit Start Date Stop Date Quantity Comments Source ASSERTION Possible [facility] Gender identity Acostaravi Shaver Sexual orientation [facility] Tobacco use and exposure 2025-02-19 00:00:00 2025-02-19 00:00:00 Smokeless tobacco non-user [facility] History of Social function 2025-02-19 00:00:00 2025-02-19 00:00:00 [facility] Smoking Status Start Date Stop Date Source Never smoked tobacco Katerine Shaver Medications Ordered Medication Name Filled Medication Name Start Date Stop Date Current Medication? Ordering Clinician Indication Dosage Frequency Signature (SIG) Comments Components Source bacitracin ointment bacitracin ointment 02-19 19:10: 00 Yes [id number] 3D Topical, 3 times daily, First dose on 02/19/25 at 1910 Katerine Shaver bacitracin- polymixin B (Polysporin ) 500-50271 UNIT/GM ointment bacitracin- polymixin B (Polysporin ) 500-83418 UNIT/GM ointment 02-19 17:25: 00 02-19 17:30 :00 No Topical, Once, On 02/19/25 at 1725, For 1 dose Katerine Shaver bacitracin- polymixin B (Polysporin ) 500-19421 UNIT/GM ointment - Pyxis Override Pull bacitracin- polymixin B (Polysporin ) 500-60243 UNIT/GM ointment - Pyxis Override Pull 02-19 [...] 1 TABLET EVERY DAY BY ORAL ROUTE. [facility] Vitafol-One 29 mg iron-1 mg-200 mg capsule TAKE 1 CAPSULE EVERY DAY BY ORAL ROUTE AT BEDTIME. Vitafol-One 29 mg iron-1 mg-200 mg capsule TAKE 1 CAPSULE EVERY DAY BY ORAL ROUTE AT BEDTIME. No Vitafol-On e 29 mg iron-1 mg-200 mg capsule TAKE 1 CAPSULE EVERY DAY BY ORAL ROUTE AT BEDTIME. [facility] amoxicillin 500 mg capsule TAKE ONE (1) CAPSULE(S) BY MOUTH TWICE A DAY FOR INFECTION. amoxicillin 500 mg capsule TAKE ONE (1) CAPSULE(S) BY MOUTH TWICE A DAY FOR INFECTION. No amoxicilli n 500 mg capsule TAKE ONE (1) CAPSULE(S) BY MOUTH TWICE A DAY FOR INFECTION. [facility] Junel FE 11/28 () 1 mg-20 mcg (21)/75 mg (7) tablet Take 1 tablet every day by oral route. Junel FE 11/28 () 1 mg-20 mcg (21)/75 mg (7) tablet Take 1 tablet every day by oral route. No 1 Q1D Junel FE 11/28 () 1 mg-20 mcg (21)/75 mg (7) tablet Take 1 tablet every day by oral route. [facility] amoxicillin 500 mg capsule TAKE ONE (1) CAPSULE(S) BY MOUTH TWICE A DAY FOR INFECTION. amoxicillin 500 mg capsule TAKE ONE (1) CAPSULE(S) BY MOUTH TWICE A DAY FOR INFECTION. No amoxicilli n 500 mg capsule TAKE ONE (1) CAPSULE(S) BY MOUTH TWICE A DAY FOR INFECTION. [facility] Hitesh Fe 11/28 () 1 mg-20 mcg (21)/75 mg (7) tablet TAKE 1 TABLET EVERY DAY BY ORAL ROUTE. Hitesh Fe 11/28 () 1 mg-20 mcg (21)/75 mg (7) tablet TAKE 1 TABLET EVERY DAY BY ORAL ROUTE. No Hitesh Fe 11/28 () 1 mg-20 mcg (21)/75 mg (7) tablet TAKE 1 TABLET EVERY DAY BY ORAL ROUTE. [facility] loratadine 10 mg tablet TAKE ONE (1) TABLET(S) BY MOUTH EVERY MORNING FOR ALLERGY SYMPTOMS. loratadine 10 mg tablet TAKE ONE (1) TABLET(S) BY MOUTH EVERY MORNING FOR ALLERGY SYMPTOMS. No loratadine 10 mg tablet TAKE ONE (1) TABLET(S) BY MOUTH EVERY MORNING FOR ALLERGY SYMPTOMS. [facility] Nexplanon 68 mg subdermal implant Inject 1 implant by subcutaneou s route. Nexplanon 68 mg subdermal implant Inject 1 implant by subcutaneou s route. No 1implan t(s) Nexplanon 68 mg subdermal implant Inject 1 implant by subcutaneo us route. [facility] Vital Signs Vital Name Observation Time Observation Value Comments S ource Heart rate 2025-02-19 16:48:59 60 /min [facility] Respiratory rate 2025-02-19 16:48:59 18 /min [facility] Oxygen saturation in Arterial blood by Pulse oximetry 2025-02-19 16:48:59 100 /min [facility] Body temperature 2025-02-19 16:48:53 37.11 [facility] Systolic blood pressure 2025-02-19 16:48:29 137 mm[Hg] [facility] Diastolic blood pressure 2025-02-19 16:48:29 78 mm[Hg] [facility] Body height 2025-02-19 12:39:00 160 cm [facility] [place] [facility] Body weight 2025-02-19 12:39:00 81 kg [facility] [place] Epic BMI 2025-02-19 12:39:00 31.63 kg/m2 [facility] Heart rate 2025-02-19 16:48:59 60 /min [facility] [place] Epic Respiratory rate 2025-02-19 16:48:59 18 /min [facility] Epic Oxygen saturation in Arterial blood by Pulse oximetry 2025-02-19 16:48:59 100 /min [facility] Body temperature 2025-02-19 16:48:53 37.11 [facility] Systolic blood pressure 2025-02-19 16:48:29 137 mm[Hg] [facility] Diastolic blood pressure 2025-02-19 16:48:29 78 mm[Hg] [facility] Body height 2025-02-19 12:39:00 160 cm Acosta [facility] [place] [facility] Body weight 2025-02-19 12:39:00 81 kg [facility] [place] Epic BMI 2025-02-19 12:39:00 31.63 kg/m2 [facility] [place] Epic BP Diastolic 2023-04-03 00:00:00 83 mm[Hg] [facility] Height 2023-04-03 00:00:00 64 [in_i] [facility] BMI (Body Mass Index) 2023-04-03 00:00:00 30.1 kg/m2 [facility] BP Systolic 2023-04-03 00:00:00 123 mm[Hg] [facility] Body Weight 2023-04-03 00:00:00 175.2 [lb_av] [facility] BP Diastolic 2023-01-13 00:00:00 84 mm[Hg] [facility] Height 2023-01-13 00:00:00 64 [in_i] [facility] BMI (Body Mass Index) 2023-01-13 00:00:00 31.9 kg/m2 [facility] BP Systolic 2023-01-13 00:00:00 128 mm[Hg] [facility] Body Weight 2023-01-13 00:00:00 185.8 [lb_av] [facility] BP Diastolic 2022-02-18 00:00:00 87 mm[Hg] [facility] Height 2022-02-18 00:00:00 64 [in_i] [facility] BMI (Body Mass Index) 2022-02-18 00:00:00 31 kg/m2 [facility] BP Systolic 2022-02-18 00:00:00 126 mm[Hg] [facility] Body Weight 2022-02-18 00:00:00 180.4 [lb_av] [facility] BP Diastolic 2022-02-13 00:00:00 89 mm[Hg] [facility] Height 2022-02-13 00:00:00 64 [in_i] [facility] BMI (Body Mass Index) 2022-02-13 00:00:00 30.3 kg/m2 [facility] BP Systolic 2022-02-13 00:00:00 134 mm[Hg] [facility] Body Weight 2022-02-13 00:00:00 176.7 [lb_av] [facility] BP Diastolic 2022-02-06 00:00:00 85 mm[Hg] [facility] Height 2022-02-06 00:00:00 64 [in_i] [facility] BMI (Body Mass Index) 2022-02-06 00:00:00 30.7 kg/m2 [facility] BP Systolic 2022-02-06 00:00:00 [...] (Body Mass Index) 2022-01-09 00:00:00 29.9 kg/m2 [facility] BP Systolic 2022-01-09 00:00:00 122 mm[Hg] [facility] Body Weight 2022-01-09 00:00:00 174.4 [lb_av] [facility] BP Diastolic 2021-11-21 00:00:00 73 mm[Hg] [facility] Height 2021-11-21 00:00:00 64 [in_i] [facility] BMI (Body Mass Index) 2021-11-21 00:00:00 29.7 kg/m2 [facility] BP Systolic 2021-11-21 00:00:00 123 mm[Hg] [facility] Body Weight 2021-11-21 00:00:00 173.1 [lb_av] [facility] BP Diastolic 2021-10-18 00:00:00 75 mm[Hg] [facility] Height 2021-10-18 00:00:00 64 [in_i] [facility] BMI (Body Mass Index) 2021-10-18 00:00:00 30 kg/m2 [facility] BP Systolic 2021-10-18 00:00:00 112 mm[Hg] [facility] Body Weight 2021-10-18 00:00:00 175 [lb_av] [facility] BP Diastolic 2021-09-19 00:00:00 80 mm[Hg] [facility] Height 2021-09-19 00:00:00 64 [in_i] [facility] BMI (Body Mass Index) 2021-09-19 00:00:00 29.5 kg/m2 [facility] BP Systolic 2021-09-19 00:00:00 123 mm[Hg] [facility] Body Weight 2021-09-19 00:00:00 171.8 [lb_av] [facility] BP Diastolic 2021-08-22 00:00:00 84 mm[Hg] [facility] Height 2021-08-22 00:00:00 64 [in_i] [facility] BMI (Body Mass Index) 2021-08-22 00:00:00 29.6 kg/m2 [facility] BP Systolic 2021-08-22 00:00:00 124 mm[Hg] [facility] Body Weight 2021-08-22 00:00:00 172.6 [lb_av] [facility] BMI (Body Mass Index) 2021-08-01 00:00:00 29.9 kg/m2 [facility] BP Systolic 2021-08-01 00:00:00 119 mm[Hg] [facility] Body Weight 2021-08-01 00:00:00 174.4 [lb_av] [facility] BP Diastolic 2021-08-01 00:00:00 79 mm[Hg] [facility] Height 2021-08-01 00:00:00 64 [in_i] [facility] Height 2020-10-29 00:00:00 64 [in_i] [facility] BMI (Body Mass Index) 2020-10-29 00:00:00 29.9 kg/m2 [facility] Body Weight 2020-10-29 00:00:00 2784 [oz_av] [facility] BP Diastolic 2020-04-17 00:00:00 74 mm[Hg] [facility] Height 2020-04-17 00:00:00 64 [in_i] [facility] BP Systolic 2020-04-17 00:00:00 121 mm[Hg] [facility] BP Diastolic 2020-03-21 00:00:00 85 mm[Hg] [facility] Height 2020-03-21 00:00:00 64 [in_i] [facility] BMI (Body Mass Index) 2020-03-21 00:00:00 29.9 kg/m2 [facility] BP Systolic 2020-03-21 00:00:00 122 mm[Hg] [facility] Body Weight 2020-03-21 00:00:00 174 [lb_av] [facility] BP Diastolic 2020-03-09 00:00:00 87 mm[Hg] [facility] Height 2020-03-09 00:00:00 64 [in_i] [facility] BMI (Body Mass Index) 2020-03-09 00:00:00 29.7 kg/m2 [facility] BP Systolic 2020-03-09 00:00:00 117 mm[Hg] [facility] Body Weight 2020-03-09 00:00:00 173 [lb_av] [facility] BP Diastolic 2020-01-19 00:00:00 74 mm[Hg] [facility] Height 2020-01-19 00:00:00 64 [in_i] [facility] BMI (Body Mass Index) 2020-01-19 00:00:00 29 kg/m2 [facility] BP Systolic 2020-01-19 00:00:00 110 mm[Hg] [facility] Body Weight 2020-01-19 00:00:00 169.1 [lb_av] [facility] BP Diastolic 2020-01-05 00:00:00 84 mm[Hg] [facility] Height 2020-01-05 00:00:00 64 [in_i] [facility] BMI (Body Mass Index) 2020-01-05 00:00:00 28.8 kg/m2 [facility] BP Systolic 2020-01-05 00:00:00 120 mm[Hg] [facility] Body Weight 2020-01-05 00:00:00 168 [lb_av] [facility] BP Diastolic 2019-12-08 00:00:00 62 mm[Hg] [facility] Height 2019-12-08 00:00:00 64 [in_i] [facility] BMI (Body Mass Index) 2019-12-08 00:00:00 28.7 kg/m2 [facility] BP Systolic 2019-12-08 00:00:00 108 mm[Hg] [facility] Body Weight 2019-12-08 00:00:00 167 [lb_av] [facility] BP Systolic 2025-02-28 15:37:00 127 mm[Hg] Step hen F Rodolfo BP Diastolic 2025-02-28 15:37:00 88 mm[Hg] Henok phen F Rodolfo Weight Measured 2025-02-28 15:37:00 190.40 pounds Bandar F Rodolfo Height Measured 2025-02-28 15:37:00 63.07 inches Bandar F Rodolfo Body Temperature 2025-02-28 15:37:00 98.00 degrees Bandar F Rodolfo Heart Rate 2025-02-28 15:37:00 75.00 /min Raven en F Rodolfo Respiratory Rate 2025-02-28 15:37:00 18.00 /min Bandar F Rodolfo Respiratory Rate 2024-09-13 14:07:00 18.00 /min Bandar F Rodolfo BP Systolic 2024-09-13 14:07:00 122 mm[Hg] Step hen F Rodolfo BP Diastolic 2024-09-13 14:07:00 79 mm[Hg] Henok Reynolds Weight Measured 2024-09-13 14:07:00 180.80 pounds Bandar Reynolds Height Measured 2024-09-13 14:07:00 63.07 inches Bandar Reynolds Body Temperature 2024-09-13 14:07:00 97.80 degrees Bandar Reynolds Heart Rate 2024-09-13 14:07:00 76.00 /min Raven Reynolds Procedures Procedure Date / Time Performed Performing Clinician Source XR HAND 3+ VIEWS LEFT 2025-02-19 14:10:00 Sully Leone [facility] US(FBP)W/0 NON STRESS TEST 2022-02-18 00:00:00 [facility] non-stress test 2022-02-13 00:00:00 [facility] US, obstetric, limited 2022-02-06 00:00:00 [facility] US, obstetric, limited 2022-01-09 00:00:00 [facility] ULTRASOUND REPEAT 2021-12-12 00:00:00 [facility] ULTRASOUND, UTERUS REAL TIME WITH IMAGE DOC, AND MATERNAL EVAL PLUS DETAILED ANATOMIC EXAMINATION, TRANSABDOMINAL APPROACH; SINGLE OR FIRST GESTATION 2021-09-19 00:00:00 [facility] US, obstetric, limited 2021-09-19 00:00:00 [facility] US, obstetric, limited 2021-08-22 00:00:00 [facility] US, obstetric, limited 2021-08-01 00:00:00 [facility] US, obstetric, limited 2020-03-09 00:00:00 [facility] ULTRASOUND REPEAT 2020-01-05 00:00:00 [facility] ULTRASOUND, UTERUS REAL TIME WITH IMAGE DOC, AND MATERNAL EVAL PLUS DETAILED ANATOMIC EXAMINATION, TRANSABDOMINAL APPROACH; SINGLE OR FIRST GESTATION 2019-12-08 00:00:00 [facility] Removal of Fallopian Tube 2018-04-29 00:00:00 [facility] Plan of Care Planned Activity Planned Date Details Comments Source Diagnostic Test Pending 2023-04-03 00:00:00 test, urine [code = test, urine] [facility] Instructions [facility] Encounters Start Date/Time End Date/Time Encounter Type Admission Type Attending [facility] Care Facility Care Department Encounter ID Source 2025-02-28 15:25:17 2025-02-28 15:25:17 Outpatient [facility] [id number] Bandar Reynolds 2025-02-28 00:00:00 2025-02-28 00:00:00 Outpatient Visit [facility] [id number] Bandar Reynolds 2025-02-19 13:24:02 2025-02-19 23:59:[address] [facility] [id number] [facility] 2025-02-19 12:41:00 2025-02-19 19:33:00 Emergency Vu, Myra Gramajo [facility] [id number] [facility] 2025-02-19 12:41:00 2025-02-19 19:33:00 Emergency Emergency MYRA BRODY RYAN [facility] General Medicine [id number] [facility] 2024-09-13 13:59:29 2024-09-13 13:59:29 Outpatient [facility] [id number] Bandar Reynolds 2024-09-13 00:00:00 2024-09-13 00:00:00 Outpatient Visit [facility] [id number] Bandar Reynolds 2023-04-03 00:00:00 2023-04-03 00:00:00 LORE Byrne-BC: [address], [address], [place] [address] , Ph. [phone] [facility] [id number] [facility] 2023-03-26 10:09:2023-03-26 11:54:00 Emergency ER MARCIAL LOZANO [facility] [id number] [facility] 2023-01-13 00:00:00 2023-01-13 00:00:00 Priyanka Perez, VENEER SAMPLE MAKER-BC: [address], [address], [place] [address] , Ph. [phone] [facility] [id number] [facility] 2022-06-11 14:30:00 2022-06-11 16:26:00 Emergency ER MARCIAL LOZANO [facility] [id number] [facility] 2022-05-21 02:40:00 2022-05-21 02:40:00 Outpatient LISTER_MELI [facility] [id number] [facility] 2022-04-04 00:00:00 2022-04-04 00:00:00 Outpatient G_Pappas [facility] [id number] [facility] 2022-04-04 00:00:00 2022-04-04 00:00:00 Outpatient G_Pappas MMG [facility] [id number] [facility] 2022-04-04 00:00:00 2022-04-04 00:00:00 Outpatient G_Pappas MMG [facility] [id number] [facility] 2022-04-04 00:00:00 2022-04-04 00:00:00 [place] [id number] [facility] 2022-02-26 01:51:00 2022-02-26 01:51:00 Outpatient G_Pappas MMG MMG [id number] [facility] 2022-02-20 13:55:00 2022-02-21 16:20:00 Inpatient ER SONNY LEIJA [facility] [id number] [facility] 2022-02-18 00:00:00 2022-02-18 00:00:00 Sonny Leija MD: [address] [facility], [place] [address] , Ph. [phone] G_Pappas [facility] [id number] [facility] 2022-02-13 00:00:00 2022-02-13 00:00:00 Sonny Leija MD: [address], [place] [address] , Ph. [phone] G_Pappas [facility] [id number] [facility] 2022-02-06 00:00:00 2022-02-06 00:00:00 Sonny Leija MD: [address] [facility] [place], [place] [address] , Ph. [phone] G_Pappas MM[facility] [id number] [facility] 2022-01-29 00:00:00 2022-01-29 00:00:00 YUE ByrneBC: [address] [facility] [place], [place] [address] , Ph. [phone] G_Pappas MM[facility] [id number] [facility] 2022-01-09 00:00:00 2022-01-09 00:00:00 YUE ByrneBC: [address] [place] [address] , Ph. [phone] G_Pappas MM[facility] [id number] [facility] 2021-12-12 10:45:00 2021-12-12 10:45:00 Outpatient SONNY DAVILA [facility] [id number] [facility] 2021-12-12 00:00:00 2021-12-12 00:00:00 Sonny Leija MD: [address], [place] [address] , Ph. [phone] G_Pappas MMG [facility] - [facility]BGYN [id number] [facility] 2021-11-21 00:00:00 2021-11-21 00:00:00 Priyanka Perez [facility]: [address], [place] [address] , Ph. [phone] G_Pappas MM[facility] [id number] [facility] 2021-10-18 10:48:00 2021-10-18 10:48:00 Outpatient SONNY DAVILA [facility] [id number] [facility] 2021-10-18 00:00:00 2021-10-18 00:00:00 Judith Pinto MD: [address] [facility] [place], [place] [address] , Ph. [phone] G_Pappas [facility] [id number] [facility] 2021-09-19 00:00:00 2021-09-19 00:00:00 Sonny Leija MD: [address] [place] [address] , Ph. [phone] G_Pappas MM[facility] [id number] [facility] 2021-08-22 00:00:00 2021-08-22 00:00:00 Sonny Leija MD: [address], [place] [address] , Ph. [phone] G_Pappas MM[facility] [id number] [facility] 2021-08-01 16:32:00 2021-08-01 16:32:00 Outpatient EL SONNY LEIJA [facility] [id number] [facility] 2021-08-01 00:00:00 2021-08-01 00:00:00 Sonny Leija MD: [address], [place] [address] , Ph. [phone] G_Pappas [facility] 09 [facility] 2020-11-13 10:39:00 2020-11-13 10:39:00 Outpatient Shield MMG MM [id number] [facility] 2020-10-29 00:00:00 2020-10-29 00:00:00 Erin Navarro, LOG DECK TENDER: [address], [place] [address] , Ph. Shield MMG [facility] 1221 [facility] 2020-09-26 02:21:00 2020-09-26 02:21:00 Outpatient G_Pappas MMG [id number] [facility] 2020-04-17 00:00:00 2020-04-17 00:00:00 Sonny Leija MD: [address], [place] [address] , Ph. [phone] G_Pappas MM[facility] [id number] [facility] 2020-04-10 10:56:00 2020-04-10 10:56:00 Outpatient G_Pappas MMG [id number] [facility] 2020-03-25 07:40:00 2020-03-27 07:35:00 Inpatient ER SONNY LEIJA [facility] [id number] [facility] 2020-03-27 04:25:00 2020-03-27 04:25:00 Outpatient G_Pappas MMG MMG [id number] [facility] 2020-03-21 13:37:00 2020-03-21 13:37:00 Outpatient ARMANDO PINTOLINHJUDITH [facility] [id number] [facility] 2020-03-21 00:00:00 2020-03-21 00:00:00 Judith Pinto MD: [address] [place] [address] , Ph. [phone] G_Pappas MM[facility] [id number] [facility] 2020-03-12 12:13:00 2020-03-12 12:13:00 Outpatient G_Pappas MMG MMG [id number] [facility] 2020-03-09 00:00:00 2020-03-09 00:00:00 Rajwinder Wolf, NP: [address] [address] , Ph. [phone] G_Pappas MM[facility] - [place] [id number] [facility] 2020-02-27 08:52:00 2020-02-27 08:52:00 Outpatient G_Pappas MMG MMG [id number] [facility] 2020-02-24 00:00:00 2020-02-24 00:00:00 Rajwinder Wolf, NP: [address] [address] , Ph. [phone] MM[facility] - [place] [id number] [facility] 2020-02-13 11:22:00 2020-02-13 11:22:00 Outpatient G_Pappas MMG MMG [id number] [facility] 2020-02-12 07:18:00 2020-02-12 07:18:00 Outpatient G_Pappas MMG MMG [id number] [facility] 2020-02-10 00:00:00 2020-02-10 00:00:00 Judith Pinto MD: [address] [facility] [address] [place] [address] [place] [address] , Ph. [phone] MMG [facility] [place] - OBGYN [id number] [facility] 2020-02-03 09:47:00 2020-02-03 09:47:00 Outpatient G_Pappas MMG MMG [id number] [facility] 2020-02-02 10:58:00 2020-02-02 10:58:00 Outpatient G_Pappas MMG MMG [id number] [facility] 2020-01-24 13:09:00 2020-01-24 13:09:00 Outpatient JUDITH ROBBINS [facility] [id number] [facility] 2020-01-22 08:21:00 2020-01-22 08:21:00 Outpatient G_Pappas MMG MMG [id number] [facility] 2020-01-19 00:00:00 2020-01-19 00:00:00 Judith Pinto MD: [address], [place] [address] , Ph. [phone] G_Pappas MMG [facility] - [place]BG[place] [id number] [facility] 2020-01-12 12:32:00 2020-01-12 12:32:00 Outpatient RAJWINDER FLEMING [facility] [id number] [facility] 2020-01-09 05:44:00 2020-01-09 05:44:00 Outpatient G_Pappas MMG MMG [id number] [facility] 2020-01-08 09:38:00 2020-01-08 09:38:00 Outpatient G_Pappas MMG MMG [id number] [facility] 2020-01-05 00:00:00 2020-01-05 00:00:00 BIGG [place]: [address], [place] [address] , Ph. [phone] G_Pappas MMG [facility] [place] - OBGYN [id number] [facility] 2019-12-24 11:07:00 2019-12-24 11:07:00 [place] [id number] [facility] 2019-12-09 11:02:00 2019-12-09 11:02:00 Outpatient G_Pappas MMG MMG [id number] [facility] 2019-12-08 15:10:00 2019-12-08 15:10:00 Outpatient JUDITH ROBBINS [facility] [id number] [facility] 2019-12-08 00:00:00 2019-12-08 00:00:00 Judith Pinto MD: [address] [place] [address] , Ph. [phone] [facility]as [facility] [id number] [facility] 2019-11-14 04:23:00 2019-11-14 04:23:00 Outpatient G_Pappas MMG [facility] [id number] [facility] 2018-04-28 16:19:00 2018-04-28 16:19:00 Outpatient ER SONNY LEIJA [facility] [id number] [facility] 2017-04-18 00:53:00 2017-04-19 09:50:00 Inpatient ER SONNY LEIJA [facility] [id number] [facility] 2017-03-25 14:17:00 2017-03-25 14:17:00 Outpatient BRUNILDA HITCHCOCK [facility] [id number] [facility] 2017-01-29 08:42:00 2017-01-29 08:42:00 Outpatient JUIDTH ROBBINS [facility] [id number] [facility] 2016-09-29 15:38:00 2016-09-29 15:38:00 Outpatient BRUNILDA HITCHCOCK [facility] [id number] [facility] 2006-03-13 08:37:00 2006-03-13 08:37:00 Outpatient SHAHRIAR COATES [facility] [id number] [facility] 2004-12-28 21:11:00 2004-12-29 02:08:00 Emergency ER YAN FRIAS [facility] [id number] [facility] Results Test Description Test Time Test Comments Results Result Co mments Source [facility], [id number] 13:49:50* Test Item Value Reference Range Interpretation Comme nts Test (test code = Test) negative [facility] CountyUrinalysis macro (dipstick) panel - [id number] 15:51:31* Test Item Value Reference Range Interpretation Comme nts Leukocytes (test code = Leukocytes) Small Nitrite (test code = Nitrite) negative Urobilinogen (test code = Urobilinogen) .2 Protein (test code = Protein) Negative pH (test code = pH) 6.5 Blood (test code = Blood) Negative Specific Mccook (test code = Specific Mccook) 1.030 Ketone (test code = Ketone) Trace Bilirubin (test code = Bilirubin) Negative Glucose (test code = Glucose) Negative Appearance (test code = Appearance) Clear Color (test code = Color) Yellow [facility] CountyUrinalysis macro (dipstick) panel - [id number] 09:46:31* Test Item Value Reference Range Interpretation Comme nts Leukocytes (test code = Leukocytes) Small Nitrite (test code = Nitrite) negative Urobilinogen (test code = Urobilinogen) .2 Protein (test code = Protein) Negative pH (test code = pH) 7.0 Blood (test code = Blood) Negative Specific Mccook (test code = Specific Mccook) 1.025 Ketone (test code = Ketone) Negative Bilirubin (test code = Bilirubin) Negative Glucose (test code = Glucose) Negative Appearance (test code = Appearance) Clear Color (test code = Color) Yellow [facility] Groupculture, vaginal/rectal, streptococcus group [id number] 00:00:00* Test Item Value Reference Range Interpretation Comme nts group B strep (test code = g roup B strep) negative [facility] GroupUrinalysis macro (dipstick) panel - [id number] 10:29:24* Test Item Value Reference Range Interpretation Comme nts Leukocytes (test code = Leukocytes) Small Nitrite (test code = Nitrite) negative Urobilinogen (test code = Urobilinogen) .2 Protein (test code = Protein) Negative pH (test code = pH) 7.0 Blood (test code = Blood) Negative Specific Mccook (test code = Specific Mccook) 1.020 Ketone (test code = Ketone) Negative Bilirubin (test code = Bilirubin) Negative Glucose (test code = Glucose) Negative Appearance (test code = Appearance) Clear Color (test code = Color) Yellow [facility] GroupUrinalysis macro (dipstick) panel - [id number] 09:51:42* Test Item Value Reference Range Interpretation Comme nts Leukocytes (test code = Leukocytes) Small Nitrite (test code = Nitrite) negative Urobilinogen (test code = Urobilinogen) .2 Protein (test code = Protein) Negative pH (test code = pH) 7.0 Blood (test code = Blood) Hemolyzed: Trace Specific Mccook (test code = Specific Mccook) 1.025 Ketone (test code = Ketone) Negative Bilirubin (test code = Bilirubin) Negative Glucose (test code = Glucose) Negative Appearance (test code = Appearance) Slightly Cloudy Color (test code = Color) Yellow [facility] CountyGlucose [Mass/volume] in Serum or Plasma --1 hour post dose [id number] 11:42:00* Test Item Value Reference Range Interpretation Comme nts Results (test code = Results) 138 [facility] GroupUrinalysis macro (dipstick) panel - [id number] 09:55:12* Test Item Value Reference Range Interpretation Comme nts Leukocytes (test code = Leukocytes) Small Nitrite (test code = Nitrite) negative Urobilinogen (test code = Urobilinogen) .2 Protein (test code = Protein) Negative pH (test code = pH) 7.0 Blood (test code = Blood) Negative Specific Mccook (test code = Specific Mccook) 1.020 Ketone (test code = Ketone) Negative Bilirubin (test code = Bilirubin) Negative Glucose (test code = Glucose) Negative Appearance (test code = Appearance) Clear Color (test code = Color) Yellow [facility] W Auto Differential panel - [id number] 09:49:00 * Test Item Value Reference Range Interpretation Comme nts white blood count (test code = white blood count) 9.7 K/uL 4.0-11.5 red blood count (test code = red blood count) 4.02 M/uL 3.80-5.20 hemoglobin (test code = hemoglobin) 10.9 g/dL 10.5-15.7 hematocrit (test code = hematocrit) 35.5 % 34.0-50.0 MCV [Entitic volume] (test c ode = 51480-1) 88.3 fL 86.0-100.0 mean corpuscular hemoglobin (test [...] neutrophils/100 leukocytes in Blood (test code = 44272-6) 74.5 % 44.4-80.1 Immature granulocytes [#/vol ume] in Blood (test code = 80205-7) 0.09 K/uL 0.00-0.03 H lymphocyte% (test code = lymphocyte%) 16.8 % 10.0-50.0 mono % (test code = mono %) 6.8 % 3.6-12.0 eos % (test code = eos %) 0.7 % 0.0-5.4 Basophils/100 leukocytes in Specimen (test code = 99889-3) 0.3 % 0.1-1.2 Band form neutrophils [#/vol ume] in Blood (test code = 11956-8) 7.20 K/uL 1.56-6.13 H Lymphocytes [#/volume] in Sp ecimen by Automated count (test code = 52621-9) 1.63 K/uL 1.18-3.74 mono # (test code = mono #) 0.66 K/uL 0.24-0.86 eos # (test code = eos #) 0.07 K/uL 0.04-0.36 basophil # (test code = baso tristan #) 0.03 K/uL 0.01-0.08 NRBC% (test code = NRBC%) 0 /100 WBC 0-0.2 NRBC# (test code = NRBC#) 0 K/uL [facility] GroupBlood group antibody screen [Presence] in Serum or Plasma 2021-12-12 09:49:00* Test Item Value Reference Range Interpretation Comme nts Blood group antibody screen [Presence] in Serum or Plasma (test code = 890-4) negative [facility]Differential panel, method unspecified - [id number] 00:00:00NeutrophilsBandLymphocyteAtypical LymphMonocyteEosinophilBasophilMetamyelocyteMyelocytePromyelocyteBlastsNucleated Red Blood CellAbs Neutrophil Count (Man)Abs Lymph Count (Man)Abs Monocyte Count (Man)Abs Eosinophil Count (Man)Abs Basophil Count (Man)Platelet EstimatePlatelet MorphologyPoikilocytosisAnisocytosisMacrocytosisTarget CellsToxic GranulationMatagoa Medical GroupHIV 1+2 Ab [Presence] in Serum 2021-12-12 00:00:00HIV P24 AgHIV-1/2 AbMataKerbs Memorial Hospital GroupReagin Ab [Presence] in Serum by [id number] 00:00:00* Test Item Value Reference Range Interpretation Comme nts Reagin Ab [Presence] in Seru m by RPR (test code = 91785-8) nonreactive nonreactive [facility] GroupUrinalysis macro (dipstick) panel - [id number] 09:49:38* Test Item Value Reference Range Interpretation Comme nts Leukocytes (test code = Leukocytes) Moderate Nitrite (test code = Nitrite) negative Urobilinogen (test code = Urobilinogen) .2 Protein (test code = Protein) Trace pH (test code = pH) 7.0 Blood (test code = Blood) Negative Specific Mccook (test code = Specific Mccook) 1.020 Ketone (test code = Ketone) Negative Bilirubin (test code = Bilirubin) Negative Glucose (test code = Glucose) Negative Appearance (test code = Appearance) Clear Color (test code = Color) Yellow [facility] CountyUrinalysis macro (dipstick) panel - [id number] 11:50:25* Test Item Value Reference Range Interpretation Comme nts Leukocytes (test code = Leukocytes) Small Nitrite (test code = Nitrite) negative Urobilinogen (test code = Urobilinogen) .2 Protein (test code = Protein) Negative pH (test code = pH) 7.0 Blood (test code = Blood) Hemolyzed: Trace Specific Mccook (test code = Specific Mccook) 1.025 Ketone (test code = Ketone) Negative Bilirubin (test code = Bilirubin) Negative Glucose (test code = Glucose) Negative Appearance (test code = Appearance) Clear Color (test code = Color) Yellow [facility] CountyUrinalysis macro (dipstick) panel - [id number] 13:56:26* Test Item Value Reference Range Interpretation Comme nts Leukocytes (test code = Leukocytes) Trace Nitrite (test code = Nitrite) negative Urobilinogen (test code = Urobilinogen) .2 Protein (test code = Protein) Negative pH (test code = pH) 6.5 Blood (test code = Blood) Negative Specific Mccook (test code = Specific Mccook) 1.030 Ketone (test code = Ketone) Small Bilirubin (test code = Bilirubin) Negative Glucose (test code = Glucose) Negative Appearance (test code = Appearance) Slightly Cloudy Color (test code = Color) Yellow [facility] CountyUrinalysis macro (dipstick) panel - [id number] 09:56:53* Test Item Value Reference Range Interpretation Comme nts Leukocytes (test code = Leukocytes) Small Nitrite (test code = Nitrite) negative Urobilinogen (test code = Urobilinogen) .2 Protein (test code = Protein) Negative pH (test code = pH) 7.0 Blood (test code = Blood) Negative Specific Mccook (test code = Specific Mccook) 1.025 Ketone (test code = Ketone) Negative Bilirubin (test code = Bilirubin) Negative Glucose (test code = Glucose) Negative Appearance (test code = Appearance) Slightly Cloudy Color (test code = Color) Yellow [facility] GroupChromosome 13+18+21+X+Y aneuploidy in Blood by Molecular genetics method [id number] 00:00:00* Test Item Value Reference Range Interpretation [...] footnotes (test code = footnotes) see notes [facility] GroupGenetic screen in Unspecified specimen by Molecular genetics method [id number] 00:00:00* Test Item Value Reference Range Interpretation [...] = polycystic kidney disease, autosomal recessive) negative bafvd-qyobr-wvuub syndrome ( test code = qmkkk-mqwzs-snvsv syndrome) negative spinal muscular atrophy (nancy t code = spinal muscular atrophy) negative tara-sachs disease (test code = tara-sachs disease) negative panel notes (test code = jyo el notes) see notes report note (test code = rep ort note) see notes footnotes (test code = footnotes) see notes [facility] Grouppap, LB + reflex to HR HPV if [id number] 00:00:00* Test Item Value Reference Range Interpretation Comme nts TP reflex HPV ASCUS (test co de = TP reflex HPV ASCUS) normal [facility] GroupABO & Rh group [Type] in [id number] 03:38:00* Test Item Value Reference Range Interpretation Comme nts Rh [Type] in Blood (test cod e = 76277-5) 4+ ABO and Rh group panel - Blo od (test code = 50273-7) O positive [facility] GroupBlood group antibody screen [Presence] in Serum or Plasma 2021-08-01 03:38:00* Test Item Value Reference Range Interpretation Comme nts Blood group antibody screen [Presence] in Serum or Plasma (test code = 890-4) negative [facility] GroupHIV 1+2 Ab [Presence] in [id number] 03:38:00HIV P24 AgHIV-1/2 AbMataKerbs Memorial Hospital GroupReagin Ab [Presence] in Serum by RPR 2021-08-01 03:38:00* Test Item Value Reference Range Interpretation Comme nts Reagin Ab [Presence] in Seru m by RPR (test code = 48046-3) nonreactive nonreactive [facility] CountyHepatitis B virus surface Ag [Presence] in Serum 2021-08-01 03:30:00* Test Item Value Reference Range Interpretation Comme nts .hepatitis B surface antigen (test code = .hepatitis B surface antigen) negative negative [facility] CountyCB W Auto Differential panel - [id number] 03:24:00 * Test Item Value Reference Range Interpretation Comme nts white blood count (test code = white blood count) 10.4 K/uL 4.0-11.5 red blood count (test code = red blood count) 4.65 M/uL 3.80-5.20 hemoglobin (test code = hemoglobin) 12.6 g/dL 10.5-15.7 hematocrit (test code = hematocrit) 39.7 % 34.0-50.0 MCV [Entitic volume] (test c ode = 97444-0) 85.4 fL 86-100 L mean corpuscular hemoglobin [...] neutrophils/100 leukocytes in Blood (test code = 05304-0) 74.1 % 44.4-80.1 Immature granulocytes [#/vol ume] in Blood (test code = 79563-5) 0.0 K/uL 0.0-0.03 lymphocyte% (test code = lymphocyte%) 17.7 % 10.0-50.0 mono % (test code = mono %) 6.8 % 3.6-12.0 eos % (test code = eos %) 0.8 % 0.0-5.4 Basophils/100 leukocytes in Unspecified specimen (test code = 93324-3) 0.2 % 0.1-1.2 Band form neutrophils [#/vol ume] in Blood (test code = 10242-0) 7.74 K/uL 1.56-6.13 H Lymphocytes [#/volume] in Unspecified specimen by Automated count (test code = 26836-6) 1.9 K/uL 1.18-3.74 mono # (test code = mono #) 0.71 K/uL 0.24-0.86 eos # (test code = eos #) 0.08 K/uL 0.04-0.36 basophil # (test code = baso tristan #) 0.02 K/uL 0.01-0.08 NRBC% (test code = NRBC%) 0 /100 WBC 0-0.2 NRBC# (test code = NRBC#) 0 K/uL [facility] GroupChlamydia trachomatis+Neisseria gonorrhoeae DNA [Presence] in Cervix by URBANO with probe [id number] 03:24:00* Test Item Value Reference Range Interpretation Comme nts Chlamydia sp Ag [Presence] i n Unspecified specimen (test code = 51819-2) CT not detected [id number] (test code = lua1706) NG not detected [facility] GroupBacteria identified in Urine by [id number] 03:24:00* Test Item Value Reference Range Interpretation Comme nts Bacteria identified in Urine by Culture (test code = 630-4) no growth after 2 days [facility] GroupSARS-CoV+SARS-CoV-2 (COVID-19) Ag [Presence] in Respiratory specimen by Rapid [id number] 15:56:00* Test Item Value Reference Range Interpretation Comme nts SARS-CoV - 2 (test code = SA RS-CoV - 2) positive [facility] GroupUrinalysis macro (dipstick) panel - [id number] 10:40:36* Test Item Value Reference Range Interpretation Comme nts Leukocytes (test code = Leukocytes) Large Nitrite (test code = Nitrite) negative Urobilinogen (test code = Urobilinogen) 1 Protein (test code = Protein) Negative pH (test code = pH) 7.0 Blood (test code = Blood) Large Specific Mccook (test code = Specific Mccook) 1.025 Ketone (test code = Ketone) Negative Bilirubin (test code = Bilirubin) Negative Glucose (test code = Glucose) Negative Appearance (test code = Appearance) Clear Color (test code = Color) Yellow [facility] RNA [Presence] in Respiratory specimen by URBANO with probe [id number] 14:28:00* Test Item Value Reference Range Interpretation Comme nts covid-19 test (test code = c ovid-19 test) negative [facility] CountyCBC W Auto Differential panel - [id number] 06:20:00 * Test Item Value Reference Range Interpretation Comme nts white blood count (test code = white blood count) 16.1 K/uL 4.0-11.5 red blood count (test code = red blood count) 3.65 M/uL 3.80-5.20 L hemoglobin (test code = hemoglobin) 9.0 g/dL 10.5-15.7 L hematocrit (test code = hematocrit) 29.4 % 34.0-50.0 L MCV [Entitic volume] (test c ode = 88403-2) 80.5 fL 86-100 L mean corpuscular hemoglobin [...] Blood by Automated count (test code = 47901-4) 11.8 % 0-8 H mean platelet volume (test c ode = mean platelet volume) 13.3 fL 9.4-12.6 H Segmented neutrophils/100 leukocytes in Blood (test code = 52690-5) 71.4 % 44.4-80.1 Immature granulocytes [#/vol ume] in Blood (test code = 82719-5) 0.2 K/uL 0.0-0.03 H lymphocyte% (test code = lymphocyte%) 17.3 % 10.0-50.0 mono % (test code = mono %) 9.6 % 3.6-12.0 eos % (test code = eos %) 0.2 % 0.0-5.4 Basophils/100 leukocytes in Unspecified specimen (test code = 65602-6) 0.2 % 0.1-1.2 Band form neutrophils [#/vol ume] in Blood (test code = 02368-2) 11.49 K/uL 1.56-6.13 H Lymphocytes [#/volume] in Unspecified specimen by Automated count (test code = 63113-1) 2.8 K/uL 1.18-3.74 mono # (test code = mono #) 1.54 K/uL 0.24-0.86 H eos # (test code = eos #) 0.04 K/uL 0.04-0.36 basophil # (test code = baso tristan #) 0.03 K/uL 0.01-0.08 NRBC% (test code = NRBC%) 0 /100 WBC 0-0.2 NRBC# (test code = NRBC#) 0 K/uL [facility] W Auto Differential panel - [id number] 05:56:00 * Test Item Value Reference Range Interpretation Comme nts white blood count (test code = white blood count) 11.8 K/uL 4.0-11.5 H red blood count (test code = red blood count) 3.82 M/uL 3.80-5.20 hemoglobin (test code = hemoglobin) 9.5 g/dL 10.5-15.7 L hematocrit (test code = hematocrit) 31.4 % 34.0-50.0 L MCV [Entitic volume] (test c ode = 73080-9) 82.2 fL 86-100 L mean corpuscular hemoglobin [...] neutrophils/100 leukocytes in Blood (test code = 62377-1) 65.0 % 44.4-80.1 Immature granulocytes [#/vol ume] in Blood (test code = 04478-6) 0.2 K/uL 0.0-0.03 H lymphocyte% (test code = lymphocyte%) 23.9 % 10.0-50.0 mono % (test code = mono %) 8.8 % 3.6-12.0 eos % (test code = eos %) 0.7 % 0.0-5.4 Basophils/100 leukocytes in Unspecified specimen (test code = 86236-7) 0.2 % 0.1-1.2 Band form neutrophils [#/vol ume] in Blood (test code = 69542-0) 7.71 K/uL 1.56-6.13 H Lymphocytes [#/volume] in Unspecified specimen by Automated count (test code = 35363-4) 2.8 K/uL 1.18-3.74 mono # (test code = mono #) 1.04 K/uL 0.24-0.86 H eos # (test code = eos #) 0.08 K/uL 0.04-0.36 basophil # (test code = baso tristan #) 0.02 K/uL 0.01-0.08 NRBC% (test code = NRBC%) 0 /100 WBC 0-0.2 NRBC# (test code = NRBC#) 0 K/uL [facility] GroupBlood type and Indirect antibody screen panel - Blood 2020-03-25 05:56:00* Test Item Value Reference Range Interpretation Comme nts Rh [Type] in Blood (test cod e = 71758-1) 4+ ABO and Rh group panel - Blo od (test code = 12996-2) O positive [facility] GroupReagin Ab [Presence] in Serum by [id number] 05:56:00* Test Item Value Reference Range Interpretation Comme nts Reagin Ab [Presence] in Seru m by RPR (test code = 62438-9) nonreactive nonreactive [facility] GroupHepatitis B virus surface Ag [Presence] in Serum 2020-03-25 05:56:00* Test Item Value Reference Range Interpretation Comme nts .hepatitis B surface antigen (test code = .hepatitis B surface antigen) negative negative [facility] CountySjuazAbvkk-9-Axglphnlxacwz.placental [Presence] in Vaginal [id number] 05:29:00* Test Item Value Reference Range Interpretation Comme nts Cexfq-7-Eomnpcvrtzptx.placen moris [Presence] in Vaginal fluid (test code = 38193-6) positive neg [facility] CountyChlamydia trachomatis+Neisseria gonorrhoeae DNA [Presence] in Unspecified specimen by URBANO with probe [id number] 00:00:00* Test Item Value Reference Range Interpretation [...] to antibiotic resistance by molecular analysis)) negative [facility] agalactiae [Presence] in Unspecified specimen by Organism specific [id number] 00:00:00* Test Item Value Reference Range Interpretation Comme nts group B streptococcus (gbs) by real-time PCR (test code = group B streptococcus (gbs) by real-time PCR) positive A group B streptococcus (gbs) antibiotic resistance by PCR (test code = group B streptococcus (gbs) antibiotic resistance by PCR) positive A [facility] CountyUrinalysis macro (dipstick) panel - [id number] 11:05:08* Test Item Value Reference Range Interpretation Comme nts Leukocytes (test code = Leukocytes) Large Nitrite (test code = Nitrite) negative Urobilinogen (test code = Urobilinogen) .2 Protein (test code = Protein) Trace pH (test code = pH) 7.0 Blood (test code = Blood) Negative Specific Mccook (test code = Specific Mccook) 1.025 Ketone (test code = Ketone) Negative Bilirubin (test code = Bilirubin) Negative Glucose (test code = Glucose) Negative Appearance (test code = Appearance) Clear Color (test code = Color) Yellow [facility] GroupUrinalysis macro (dipstick) panel - [id number] 14:06:00* Test Item Value Reference Range Interpretation Comme nts Leukocytes (test code = Leukocytes) Small Nitrite (test code = Nitrite) negative Urobilinogen (test code = Urobilinogen) .2 Protein (test code = Protein) Negative pH (test code = pH) 7.5 Blood (test code = Blood) Negative Specific Mccook (test code = Specific Mcc[place]) 1.020 Ketone (test code = Ketone) Negative Bilirubin (test code = Bilirubin) Negative Glucose (test code = Glucose) Negative Appearance (test code = Appearance) Clear Color (test code = Color) Yellow [facility] Countydifferential panel, [id number] 11:50:00 NeutrophilsBandLymphocyteAtypical LymphMonocyteEosinophilBasophilMetamyelocyteMyelocyteBlastsNucleated Red Blood CellDifferential CommentPlatelet EstimatePlatelet MorphologyHypochromasiaPoikilocytosisAnisocytosisTarget CellsStomatocyteToxic GranulationBurr CellsRouleauToxic Vacuolationneutrophils-Pb hhp-Mvsjtaodeqit-BInsiovag lqaskp-Cibiklnpuq-XWcgyxusremuUwisiybnywcw comment-P [facility] CountyCB W Auto Differential panel - [id number] 11:50:00 * Test Item Value Reference Range Interpretation Comme nts white blood count (test code = white blood count) 12.7 K/uL 4.0-11.5 H red blood count (test code = red blood count) 4.03 M/uL 3.80-5.20 hemoglobin (test code = hemoglobin) 10.8 g/dL 10.5-15.7 hematocrit (test code = hematocrit) 34.5 % 34.0-50.0 MCV [Entitic volume] (test c ode = 68989-9) 85.6 fL 86-100 L mean corpuscular hemoglobin [...] neutrophils/100 leukocytes in Blood (test code = 73711-4) 74.7 % 44.4-80.1 Immature granulocytes [#/vol ume] in Blood (test code = 15171-0) 0.1 K/uL 0.0-0.03 H lymphocyte% (test code = lymphocyte%) 15.5 % 10.0-50.0 mono % (test code = mono %) 7.9 % 3.6-12.0 eos % (test code = eos %) 0.6 % 0.0-5.4 Basophils/100 leukocytes in Unspecified specimen (test code = 92436-6) 0.2 % 0.1-1.2 Band form neutrophils [#/vol ume] in Blood (test code = 00421-5) 9.51 K/uL 1.56-6.13 H Lymphocytes [#/volume] in Unspecified specimen by Automated count (test code = 51326-4) 2.0 K/uL 1.18-3.74 mono # (test code = mono #) 1.00 K/uL 0.24-0.86 H eos # (test code = eos #) 0.07 K/uL 0.04-0.36 basophil # (test code = baso tristan #) 0.02 K/uL 0.01-0.08 NRBC% (test code = NRBC%) 0 /100 WBC 0-0.2 NRBC# (test code = NRBC#) 0 K/uL [facility], method unspecified - [id number] 11:50:00NeutrophilsBandLymphocyteAtypical LymphMonocyteEosinophilBasophilMetamyelocyteMyelocyteBlastsNucleated Red Blood CellDifferential CommentPlatelet EstimatePlatelet MorphologyHypochromasiaPoikilocytosisAnisocytosisTarget CellsStomatocyteToxic GranulationBurr CellsRouleauToxic Vacuolationneutrophils-Pb fzw-Vlfetrdeupwv-MTugvmcyu nfihne-Ogudhyokxn-PMsoelbmjvfnJcvjchbbxqwq comment-P [facility] antibody screen [Presence] in Serum or Plasma 2020-01-12 11:50:00* Test Item Value Reference Range Interpretation Comme [facility] Blood group antibody screen [Presence] in Serum or Plasma (test code = 890-4) negative [facility]HIV [facility]+2 Ab [Presence] in [id number] 11:50:00HIV P24 AgHIV-1/2 [facility]MaMiss[facility] HospitalReagin Ab [Presence] in Serum by RPR 2020-01-12 11:50:00RPR ConfirmationMem[facility] Countypap, LB + CT/NG/TV + reflex HR [id number] 00:00:00* Test Item Value Reference Range Interpretation Comme [facility] chlamydia trachomatis by candace l-time PCR (reflex [...] type-detect 3.0 high risk if ASCUS) negative [facility] CountyCB W Auto Differential panel - [id number] 02:22:00 * Test Item Value Reference Range Interpretation Comme [facility] white blood count (test code = white blood count) 11.2 K/uL 4.0-11.5 red blood count (test code = red blood count) 4.11 M/uL 3.80-5.20 hemoglobin (test code = hemoglobin) 11.3 g/dL 10.5-15.7 hematocrit (test code = hematocrit) 35.2 % 34.0-50.0 Erythrocyte mean corpuscular volume [Entitic volume] (test code = 41876-6) 85.6 fL 86-100 L mean corpuscular hemoglobin [...] Neutrophils.segmented/100 leukocytes in Blood (test code = 46607-4) 75.5 % 44.4-80.1 Granulocytes Immature [#/vol ume] in Blood (test code = 93932-4) 0.1 K/uL 0.0-0.03 H lymphocyte% (test code = lymphocyte%) 15.0 % 10.0-50.0 mono % (test code = mono %) 8.4 % 3.6-12.0 eos % (test code = eos %) 0.6 % 0.0-5.4 Basophils/100 leukocytes in Unspecified specimen (test code = 75790-1) 0.1 % 0.1-1.2 Neutrophils.band form [#/vol ume] in Blood (test code = 70839-0) 8.42 K/uL 1.56-6.13 H Lymphocytes [#/volume] in Unspecified specimen by Automated count (test code = 09992-8) 1.7 K/uL 1.18-3.74 mono # (test code = mono #) 0.94 K/uL 0.24-0.86 H eos # (test code = eos #) 0.07 K/uL 0.04-0.36 basophil # (test code = baso tristan #) 0.01 K/uL 0.01-0.08 NRBC% (test code = NRBC%) 0 /100 WBC 0-0.2 NRBC# (test code = NRBC#) 0 K/uL [facility] GroupHIV 1+2 Ab [Presence] in [id number] 02:22:00HIV P24 AgHIV-1/2 AbMataKerbs [facility] GroupHepatitis B virus surface Ag [Presence] in [id number] 02:22:00* Test Item Value Reference Range Interpretation Comme nts .hepatitis B surface antigen (test code = .hepatitis B surface antigen) negative negative [facility] GroupBacteria identified in Urine by [id number] 02:22:00* Test Item Value Reference Range Interpretation Comme nts Bacteria identified in Urine by Culture (test code = 630-4) no growth after 2 days [facility] GroupReagin Ab [Presence] in Serum by [id number] 02:22:00* Test Item Value Reference Range Interpretation Comme nts Reagin Ab [Presence] in Seru m by RPR (test code = 39389-6) nonreactive nonreactive [facility] GroupABO & Rh group [Type] in [id number] 02:19:00* Test Item Value Reference Range Interpretation Comme nts Rh [Type] in Blood (test cod e = 07164-1) 4+ ABO and Rh group panel - Blo od (test code = 35068-1) O positive [facility] GroupBlood group antibody screen [Presence] in Serum or Plasma 2019-12-08 02:19:00* Test Item Value Reference Range Interpretation Comme nts Blood group antibody screen [Presence] in Serum or Plasma (test code = 890-4) negative [facility] Notes Date/Time Note Provider Source Bandar Thomson [facility]2025-04-13 19:33:31* [facility] 2025-02-19 19:33:31* Calculated C-SSRS Risk Score (Lifetime/Recent) Answer Date of Assessment Author No Risk Indicated 02/19/2025 1:38 PM CDT Annamaria Escalante RN * [place] Suicide Severity Rating Scale (Screener/Recent Self-Report) Question Answer Date of Assessment Author 1. Wish to be (Past 1 Month) No 02/19/2025 1:38 PM CDT Annamaria Escalante RN 2. Non-Specific Active Suici rober Thoughts (Past 1 Month) No 02/19/2025 1:38 PM CDT Annamaria Escalante RN 6. Suicidal Behavior (Lifetime) No 1:38 PM CDT Annamaria Escalante RN [facility]Dljpvre3900-94-64 19:33:31 [facility]Dzpjksp7203-09-72 19:33:31 Diagnosis Open nondisplaced fracture o f phalanx of left index finger, unspecified phalanx, initial encounter - Primary Proximal phalanx fracture of finger Closed fracture of middle or proximal phalanx or phalanges of hand [facility] [id number] 19:33:31 Betty Shejiew9689-92-03 00:00:00 Bandar Thomson [facility]
--- NOTE | 2025-03-03 11:18 | ER ---
Nurse's Notes [facility] Name: Gudelia Ferguson Age: 25 yrs Sex: Female : 2000 Arrival Date: 03/03/2025 Time: 10:05 Bed DX2 Private MD: Diagnosis: Encounter for removal of sutures Presentation: 03/03 10:22 Chief complaint: Chief complaint: Patient states: Wound check to left pointer finger. ld1 Wanting to know if stitches need to come out. 10:23 Coronavirus screen: At this time, the client does not indicate any symptoms associated ld1 with coronavirus-19. Ebola Screen: No symptoms or risks identified at this time. Initial Sepsis Screen: Does the patient meet any 2 criteria? No. Patient's initial sepsis screen is negative. Does the patient have a suspected source of infection? No. Patient's initial sepsis screen is negative. Risk Assessment: Do you want to hurt yourself or someone else? Patient reports no desire to harm self or others. Onset of symptoms was March 03, 2025. 10:23 Method Of Arrival: Ambulatory ld1 10:23 Acuity: CYNTHIA 4 ld1 Triage Assessment: 10:23 General: Appears in no apparent distress. comfortable, Behavior is calm, cooperative, ld1 appropriate for age. Pain: Denies pain. EENT: No signs and/or symptoms were reported regarding the EENT system. Neuro: Level of Consciousness is awake, alert, obeys commands, Oriented to person, place, time, situation. Cardiovascular: Capillary refill < 3 seconds Patient's skin is warm and dry. Respiratory: Airway is patent Respiratory effort is even, unlabored. GI: Abdomen is round non-distended. : No signs and/or symptoms were reported regarding the genitourinary system. Derm: No signs and/or symptoms reported regarding the dermatologic system. Musculoskeletal: No signs and/or symptoms reported regarding the musculoskeletal system. DISC PAD GRINDER: 11:34 LMP N/A - , Not ap3 Historical: - Allergies: 10:21 No Known Allergies; ld1 - Home Meds: 10:21 None [Active]; ld1 - PMHx: 10:21 None; ld1 - PSHx: 10:21 None; ld1 - Immunization history:: Adult Immunizations up to date. - Infectious Disease History:: Denies. - Social history:: Smoking status: Patient denies any tobacco usage or history of. - Family history:: not pertinent. Screenin:25 [facility] ED Fall Risk Assessment (Adult) History of falling in the last 3 months, ld1 including since admission No falls in past 3 months (0 pts) Confusion or Disorientation No (0 pts) Intoxicated or Sedated No (0 pts) Impaired Gait No (0 pts) Mobility Assist Device Used No (0 pt) Altered Elimination No (0 pt) Score/Fall Risk Level 0 - 2 = Low Risk Oriented to surroundings, Hourly rounding (assess needs \T\ fall precautionary measures) done. Abuse screen: Denies threats or abuse. Denies injuries from another. Nutritional screening: No deficits noted. Tuberculosis screening: No symptoms or risk factors identified. Assessment: 10:25 Reassessment: See triage assessment. Pt placed in fast track chairs for physician ld1 assessment. 10:31 Reassessment: Patient and/or family updated on plan of care and expected duration. Pain ap3 level reassessed. Patient is alert, oriented x 3, equal unlabored respirations, skin warm/dry/pink. General: Appears in no apparent distress. Behavior is calm, cooperative, appropriate for age. Pain: Complains of pain in left index finger. Neuro: Level of Consciousness is awake, alert, obeys commands, Oriented to person, place, time, situation, Appropriate for age. Cardiovascular: Patient's skin is warm and dry. Respiratory: Airway is patent Respiratory effort is even, unlabored, Respiratory pattern is regular, symmetrical. Derm: sutures in place in left pointer finger. Vital Signs: 10:23 BP 126 / 85; Pulse 84; Resp 18; Temp 97.2(TE); Pulse Ox 100% on R/A; Weight 83.91 kg; ld1 Height 5 ft. 3 in. ; Pain 0/10; 10:23 Body Mass Index 32.77 (83.91 kg, 160.02 cm) ld1 10:23 Pain Scale: Adult ld1 ED Course: 10:07 Patient arrived in ED. im 10:09 Rodo Mackay MD is Attending Physician. nevin 10:23 Arm band placed on right wrist. ld1 10:24 Triage completed. ld1 10:25 Patient has correct armband on for positive identification. ld1 10:25 No provider procedures requiring assistance completed. Patient did not have IV access ld1 during this emergency room visit. 11:34 Provided Education on: wound care. ap3 Administered Medications: 11:32 Drug: Cephalexin PO 500 mg PO once Route: PO; ap3 11:33 Follow up: Response: Medication administered at discharge. ap3 11:32 Drug: Twskxxbc-Ycptjpazts-Mmgixyaza Topical Ointment 1 application Topical once Route: ap3 Topical; Site: affected area; 11:32 Drug: Ibuprofen PO 600 mg PO once Route: PO; ap3 11:32 Follow up: Response: Medication administered at discharge. ap3 Medication: 10:25 VIS not applicable for this client. ld1 Outcome: 11:17 Discharge ordered by . nevin 11:33 Discharged to home ambulatory, ap3 11:33 Condition: good 11:33 Discharge instructions given to patient, Instructed on discharge instructions, follow up and referral plans. wound care, Demonstrated understanding of instructions, follow-up care, medications, wound care, Prescriptions given X 3, 11:34 Patient left the ED. ap3 Signatures: Rodo Mackay MD MD cha Prokisch, Amanda RN RN ap3 Elizabeth Deshpande, RN RN ld1 Zaynab Cruz Corrections: (The following items were deleted from the chart) 10:24 10:22 Chief complaint: ld1 ld1
--- NOTE | 2025-03-03 11:18 | EDPHYS ---
Physician Documentation [facility] Name: Gudelia Ferguson Age: 25 yrs Sex: Female : 2000 Arrival Date: 03/03/2025 Time: 10:05 Bed DX2 Private MD: ED Physician Rodo Mackay HPI: 03/03 11:13 This 25 yrs old Female presents to ER via Ambulatory with complaints of Wound nevin Check. 11:13 Patient presents to ED for recheck of: laceration. The affected area is on the left nevin hand. Previous treatment: 12 days. PATIENT SUPPORT PARTNER: 11:34 LMP N/A - , Not ap3 Historical: - Allergies: 10:21 No Known Allergies; ld1 - Home Meds: 10:21 None [Active]; ld1 - PMHx: 10:21 None; ld1 - PSHx: 10:21 None; ld1 - Immunization history:: Adult Immunizations up to date. - Infectious Disease History:: Denies. - Social history:: Smoking status: Patient denies any tobacco usage or history of. - Family history:: not pertinent. ROS: 11:13 Constitutional: Negative for fever, chills, and weight loss, Eyes: Negative for injury, nevin pain, redness, and discharge, ENT: Negative for injury, pain, and discharge, Neck: Negative for injury, pain, and swelling, Cardiovascular: Negative for chest pain, palpitations, and edema, Respiratory: Negative for shortness of breath, cough, wheezing, and pleuritic chest pain, Abdomen/GI: Negative for abdominal pain, nausea, vomiting, diarrhea, and constipation, Back: Negative for injury and pain, : Negative for injury, bleeding, discharge, and swelling, Skin: Negative for injury, rash, and discoloration, Neuro: Negative for headache, weakness, numbness, tingling, and seizure, Psych: Negative for depression, anxiety, suicide ideation, homicidal ideation, and hallucinations, Allergy/Immunology: Negative for hives, rash, and allergies, Endocrine: Negative for neck swelling, polydipsia, polyuria, polyphagia, and marked weight changes, Hematologic/Lymphatic: Negative for swollen nodes, abnormal bleeding, and unusual bruising, 11:13 MS/extremity: Positive for decreased range of motion, pain, swelling, tenderness, of the left hand and left index finger, Exam: 11:13 Constitutional: This is a well developed, well nourished patient who is awake, alert, nevin and in no acute distress. Head/Face: Normocephalic, atraumatic. Eyes: Pupils equal round and reactive to light, extra-ocular motions intact. Lids and lashes normal. Conjunctiva and sclera are non-icteric and not injected. Cornea within normal limits. Periorbital areas with no swelling, redness, or edema. ENT: Nares patent. No nasal discharge, no septal abnormalities noted. Tympanic membranes are normal and external auditory canals are clear. Oropharynx with no redness, swelling, or masses, exudates, or evidence of obstruction, uvula midline. Mucous membranes moist. Neck: Trachea midline, no thyromegaly or masses palpated, and no cervical lymphadenopathy. Supple, full range of motion without nuchal rigidity, or vertebral point tenderness. No Meningismus. Chest/axilla: Normal chest wall appearance and motion. Nontender with no deformity. No lesions are appreciated. Cardiovascular: Regular rate and rhythm with a normal S1 and S2. No gallops, murmurs, or rubs. Normal PMI, no JVD. No pulse deficits. Respiratory: Lungs have equal breath sounds bilaterally, clear to auscultation and percussion. No rales, rhonchi or wheezes noted. No increased work of breathing, no retractions or nasal flaring. Abdomen/GI: Soft, non-tender, with normal bowel sounds. No distension or tympany. No guarding or rebound. No evidence of tenderness throughout. Skin: Warm, dry with normal turgor. Normal color with no rashes, no lesions, and no evidence of cellulitis. Neuro: Awake and alert, GCS 15, oriented to person, place, time, and situation. Cranial nerves II-XII grossly intact. Motor strength 5/5 in all extremities. Sensory grossly intact. Cerebellar exam normal. Normal gait. Psych: Awake, alert, with orientation to person, place and time. Behavior, mood, and affect are within normal limits. 11:13 Musculoskeletal/extremity: ROM: full active range of motion, Circulation is intact in all extremities. Sensation intact. Compartment Syndrome exam of affected extremity: is normal. Vital Signs: 10:23 BP 126 / 85; Pulse 84; Resp 18; Temp 97.2(TE); Pulse Ox 100% on R/A; Weight 83.91 kg; ld1 Height 5 ft. 3 in. ; Pain 0/10; 10:23 Body Mass Index 32.77 (83.91 kg, 160.02 cm) ld1 10:23 Pain Scale: Adult ld1 Procedures: 11:19 Suture/Staple removal: Removed 10 sutures, from left hand, site appears well healed, nevin dressed with gauze bandage, Neosporin, Patient tolerated well. MDM: 10:09 Medical Screening Exam initiated [facility] 11:16 Differential diagnosis: cellulitis. Data reviewed: vital signs, nurses notes. [facility] Consideration of Admission/Observation Escalation of care including admission/observation considered. I considered the following discharge prescriptions or medication management in the emergency department Medications were administered in the Emergency Department. See MAR. Test considered but Not performed: Labs: no labs , no x rays. 03/03 11:13 Order name: Wound dressing; Complete Time: 11:21 [facility] 03/03 11:19 Order name: Suture Tray at Bedside; Complete Time: 11:21 nevin Administered Medications: 11:32 Drug: Cephalexin PO 500 mg PO once Route: PO; ap3 11:33 Follow up: Response: Medication administered at discharge. ap3 11:32 Drug: Oeybvfmk-Fnzrlddqnc-Odoirqtep Topical Ointment 1 application Topical once Route: ap3 Topical; Site: affected area; 11:32 Drug: Ibuprofen PO 600 mg PO once Route: PO; ap3 11:32 Follow up: Response: Medication administered at discharge. ap3 Disposition Summary: 03/03/25 11:17 Discharge Ordered Notes: Location: Home [facility] Problem: new nevin Symptoms: have improved nevin Condition: Stable nevin Diagnosis - Encounter for removal of sutures nevin Followup: nevin - With: Private Physician - When: 2 - 3 days - Reason: Recheck today's complaints, Continuance of care, Re-evaluation by your physician Discharge Instructions: - Discharge Summary Sheet [facility] - How to Change Your Wound Dressing nevin - Laceration Care, Adult nevin - Suture Removal, Care After nevin - Laceration Care, Adult, Isgn-kd-Sdtp nevin - Incision Care, Adult nevin Forms: - Medication Reconciliation Form nevin - Antibiotic Education nevin - Prescription Opioid Use nevin - Patient Portal Instructions [facility] - Leadership Thank You Letter [facility] Prescriptions: - Neosporin (egg-jdg-imybp) 3.5mg-400 unit- 5,000 unit/gram Topical ointment - apply 1 application TOPICAL route 3 times per day; 15 gram; Refills: 0, Product [facility] Selection Permitted - Cephalexin 500 mg Oral Capsule - take 1 capsule ORAL route every 6 hours for 10 days; 40 capsule; Refills: 0, [facility] Product Selection Permitted - Ibuprofen 600 mg Oral tablet - take 1 tablet ORAL route every 6 hours As needed take with food; 20 tablet; [facility] Refills: 0, Product Selection Permitted Signatures: Rodo Mackay MD MD cha Prokisch, Amanda RN RN ap3 Elizabeth Deshpande RN RN ld1
[2025-03-03] MEDS ORDERED: IBUPROFEN 200 MG TAB PO ONE (11:24)
[2025-03-03] MEDS ORDERED: CEPHALEXIN 250 MG CAP ONE (11:24)
[2025-03-03] MEDS ORDERED: NEOMYCIN/BAC/POLY OPTH 3.5GM ONE (11:24)
[2025-03-03 11:39] VITALS: BP 126/85; TEMP 97.2; O2SAT 100
== END 2025-03-03 11:34 | disposition home or self-care (01) ==
LOC: ER 10:05
DX: Z48.02 Encounter for removal of sutures (principal)
CPT/HCPCS: 99283